=== PATIENT | female | born 1985 | race Hispanic/Latino ===

== ENCOUNTER 2018-06-26 17:34 | Emergency (ER) | payer SELFPAY ==
[2018-06-26 18:15] LABS: Absolute Monocytes 0.5 K/uL (0.1-1.3); Absolute Neutrophil 5.4 K/uL (1.8-8.0); Basophils % 0.7 % (0-1.3); Eosinophils % 2.7 % (0-4.4); Hematocrit 36.8 % (36.0-45.0); Lymphocytes % 32.7 % (15.3-44.8); MPV 8.4 fL (7.6-11.3); RBC Red Blood Cell Count 4.55 M/uL (3.86-4.86)
[2018-06-26 18:18] LABS: Protime INR 1.1
--- NOTE | 2018-06-26 18:24 | RAD REPORT ---
EXAM DESCRIPTION: Kaia Single View06/26/2018 6:15 pm CLINICAL HISTORY: Chest pain COMPARISON: none FINDINGS: The lungs appear clear of acute infiltrate. The heart is normal size IMPRESSION: No acute abnormalities displayed
[2018-06-26 18:34] LABS: ALT/SGPT 20 U/L (12-78); AST/SGOT 15 U/L (15-37); Albumin 3.6 g/dL (3.4-5.0); Alkaline Phosphatase 76 U/L (45-117); BUN Blood Urea Nitrogen 13 mg/dL (7-18); Bicarbonate 28 mmol/L (21-32); Bilirubin Direct < 0.1 mg/dL (0-0.2); Bilirubin Total 0.2 mg/dL (0.2-1.0); Glucose Level 98 mg/dL (74-106); Magnesium 2.1 mg/dL (1.8-2.4); NT PRO-BNP 71 pg/mL (<125); Potassium 3.6 mmol/L (3.5-5.1); Protein, Total 7.7 g/dL (6.4-8.2); Sodium Level 142 mmol/L (136-145); Troponin (Emerg Dept Use Only) < 0.02 ng/mL (0.0-0.045)
[2018-06-26 21:50] LABS: Urine Blood NEGATIVE (NEG); Urine Glucose NEGATIVE (NEG); Urine Protein NEGATIVE (NEG); Urine Specific Gravity 1.025 (1.005-1.030); Urine pH 5.5 (5.0-7.0)
--- NOTE | 2018-06-26 22:26 | ER ---
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 Pt reports that this pain has come and gone for a while, but has not been as severe and continuous. Pain is worse when taking deep breaths and palpation. Transition of care: patient was not received from another setting of care. Onset of symptoms was June 26, 2018. Risk Assessment: Do you want to hurt yourself or someone else? Patient reports no desire to harm self or others. Initial Sepsis Screen: Does the patient meet any 2 criteria? No. Patient's initial sepsis screen is negative. Does the patient have a suspected source of infection? No. Patient's initial sepsis screen is negative. Care prior to arrival: None. 17:57 Method Of Arrival: Ambulatory ss 17:57 Acuity: DUTCH 3 ss Historical: - Allergies: 18:00 No Known Allergies; ss - Home Meds: 18:00 None [Active]; ss - PMHx: 18:00 Anxiety; Depression; Diabetes - NIDDM; ss - Immunization history:: Adult Immunizations up to date. - Social history:: Smoking status: Patient uses tobacco products, denies chronic smoking, but will smoke occasionally. - Ebola Screening: : Patient denies exposure to infectious person Patient denies travel to an Ebola-affected area in the 21 days before illness onset. Screenin:51 Abuse screen: Denies threats or abuse. Denies injuries from another. Nutritional sv screening: No deficits noted. Tuberculosis screening: No symptoms or risk factors identified. Fall Risk None identified. Assessment: 18:00 General: Appears in no apparent distress. uncomfortable, obese, well developed, sv Behavior is cooperative, appropriate for age, anxious. Pain: Complains of pain in anterior aspect of right upper chest, anterior aspect of left upper chest and mid-sternal area Pain does not radiate. Pain currently is 10 out of 10 on a pain scale. Quality of pain is described as sharp, Pain began 2-3 days ago. Is intermittent. Neuro: Level of Consciousness is awake, alert, obeys commands, Oriented to person, place, time, situation, Moves all extremities. Full function Gait is steady. Cardiovascular: Patient's skin is warm and dry. Rhythm is sinus rhythm. Respiratory: Reports shortness of breath on exertion Airway is patent Respiratory effort is even, unlabored, Respiratory pattern is regular, symmetrical. Derm: Skin is pink, warm \T\ dry. 19:00 Reassessment: Patient appears in no apparent distress at this time. Patient and/or jb4 family updated on plan of care and expected duration. Pain level reassessed. Patient is alert, oriented x 3, equal unlabored respirations, skin warm/dry/pink. 19:55 Reassessment: Patient appears in no apparent distress at this time. Patient and/or jb4 family updated on plan of care and expected duration. Pain level reassessed. Patient is alert, oriented x 3, equal unlabored respirations, skin warm/dry/pink. 20:45 Reassessment: Patient appears in no apparent distress at this time. Patient and/or jb4 family updated on plan of care and expected duration. Pain level reassessed. Patient is alert, oriented x 3, equal unlabored respirations, skin warm/dry/pink. 21:45 Reassessment: Patient appears in no apparent distress at this time. Patient and/or jb4 family updated on plan of care and expected duration. Pain level reassessed. Patient is alert, oriented x 3, equal unlabored respirations, skin warm/dry/pink. 22:59 Reassessment: Patient appears in no apparent distress at this time. Patient and/or jb4 family updated on plan of care and expected duration. Pain level reassessed. Patient is alert, oriented x 3, equal unlabored respirations, skin warm/dry/pink. Vital Signs: 18:00 BP 126 / 74; Pulse 74; Resp 24; Temp 98.4(TE); Height 4 ft. 11 in. (149.86 cm); Pain ss 10/10; 19:30 BP 113 / 78; Pulse 72; Resp 18; Pulse Ox 98% on R/A; jb4 20:45 BP 130 / 69; Pulse 68; Resp 18; Pulse Ox 99% on R/A; jb4 21:45 BP 100 / 81; Pulse 76; Resp 16; Pulse Ox 98% on R/A; jb4 22:50 BP 128 / 80; Pulse 77; Resp 16; Pulse Ox 99% on R/A; jb4 ED Course: 17:34 Patient arrived in ED. as 17:44 Osvaldo Payne, CELSO is PHCP. pm1 17:44 Santiago Wilson MD is Attending Physician. pm1 17:45 Sonal Perez, RN is Primary Nurse. sv 17:51 Patient has correct armband on for positive identification. Placed in gown. Bed in low sv position. Call light in reach. quality assurance monitor body on. Pulse ox on. NIBP on. Door closed. Head of bed elevated. 17:52 EKG done, by budget technician. reviewed by Osvaldo Payne NP. sm3 17:59 Triage completed. ss 18:00 Arm band placed on right wrist. ss 18:00 Initial lab(s) drawn, by sc, sent to lab. Inserted saline lock: 20 gauge in right sv antecubital area, using aseptic technique. Blood collected. Flushed right antecubital with 5 ml normal saline. Patient maintains SpO2 saturation greater than 95% on room air. 18:26 Basic Metabolic Panel Sent. sv 18:26 CBC with Diff Sent. sv 18:26 LFT's Sent. sv 18:26 Magnesium Sent. sv 18:26 NT PRO-BNP Sent. sv 18:26 PT-INR Sent. sv 18:26 Troponin (emerg Dept Use Only) Sent. sv 18:26 XRAY Chest (1 view) Sent. sv 19:10 Report given to Tee BARAJAS. sv 19:11 Primary Nurse role handed off by Sonal Perez, JENN sv 19:13 Denton Barreto, RN is Primary Nurse. jb4 22:50 No provider procedures requiring assistance completed. IV discontinued, intact, jb4 bleeding controlled, No redness/swelling at site. Pressure dressing applied. Administered Medications: 22:45 Drug: TORadol 30 mg Route: IVP; Site: right antecubital; cc3 22:52 Follow up: Response: No adverse reaction cc3 22:59 Follow up: Response: No adverse reaction; Pain is decreased jb4 Outcome: 22:26 Discharge ordered by . pm1 22:50 Discharged to home ambulatory. jb4 22:50 Condition: stable 22:50 Discharge instructions given to patient, Instructed on discharge instructions, follow up and referral plans. Demonstrated understanding of instructions, follow-up care. 23:02 Patient left the ED. jb4 Signatures: Sonal Perez, RN Meenakshi Contreras Shelby, RN RN Osvaldo Woodson, OFFICE NURSE OFFICE NURSE pm1 Denton Barreto RN RN jb4 Ksenia Leal 3 Anna Christianson cc3 Corrections: (The following items were deleted from the chart) 18:28 18:00 Respiratory: Airway is patent Respiratory effort is even, unlabored, Respiratory sv pattern is regular, symmetrical, sv
--- NOTE | 2018-06-26 22:27 | EDPHYS ---
Physician Documentation [facility] Name: Lorelei Bolaños Age: 32 yrs Sex: Female : 1985 Arrival Date: 06/26/2018 Time: 17:34 Bed 17 Private MD: ED Physician Santiago Wilson HPI: 06/26 18:00 This 32 yrs old Female presents to ER via Ambulatory with complaints of Chest pm1 Tightness, Shortness Of Breath. 18:00 The patient or guardian reports chest pain that is located primarily in the mid-sternal pm1 area. The pain does not radiate. Associated signs and symptoms: Pertinent positives: shortness of breath, Pertinent negatives: abdominal pain, cough, dizziness, headache, nausea, near syncope, palpitations, vomiting. The chest pain is described as sharp. Duration: The patient or guardian reports a single episode, that is still ongoing. Modifying factors: The symptoms are alleviated by nothing. the symptoms are aggravated by deep breath, emotionally stressful situations, palpation of area. Severity of pain: in the emergency department the pain is unchanged. The patient has not experienced similar symptoms in the past. The patient has not recently seen a physician. Historical: - Allergies: 18:00 No Known Allergies; ss - Home Meds: 18:00 None [Active]; ss - PMHx: 18:00 Anxiety; Depression; Diabetes - NIDDM; ss - Immunization history:: Adult Immunizations up to date. - Social history:: Smoking status: Patient uses tobacco products, denies chronic smoking, but will smoke occasionally. - Ebola Screening: : Patient denies exposure to infectious person Patient denies travel to an Ebola-affected area in the 21 days before illness onset. ROS: 18:00 Constitutional: Negative for fever, chills, and weight loss, Eyes: Negative for injury, pm1 pain, redness, and discharge, ENT: Negative for injury, pain, and discharge, Neck: Negative for injury, pain, and swelling. 18:00 Abdomen/GI: Negative for abdominal pain, nausea, vomiting, diarrhea, and constipation. 18:00 Back: Negative for injury and pain, : Negative for injury, bleeding, discharge, and swelling, MS/Extremity: Negative for injury and deformity, Skin: Negative for injury, rash, and discoloration, Neuro: Negative for headache, weakness, numbness, tingling, and seizure. 18:00 Cardiovascular: Positive for chest pain, Negative for edema, orthopnea, palpitations. 18:00 Respiratory: Positive for shortness of breath, Negative for cough, wheezing. Exam: 18:00 Constitutional: This is a well developed, well nourished patient who is awake, alert, pm1 and in no acute distress. Head/Face: Normocephalic, atraumatic. Eyes: Pupils equal round and reactive to light, extra-ocular motions intact. Lids and lashes normal. Conjunctiva and sclera are non-icteric and not injected. Cornea within normal limits. Periorbital areas with no swelling, redness, or edema. ENT: Nares patent. No nasal discharge, no septal abnormalities noted. Tympanic membranes are normal and external auditory canals are clear. Oropharynx with no redness, swelling, or masses, exudates, or evidence of obstruction, uvula midline. Mucous membranes moist. Neck: Trachea midline, no thyromegaly or masses palpated, and no cervical lymphadenopathy. Supple, full range of motion without nuchal rigidity, or vertebral point tenderness. No Meningismus. 18:00 Cardiovascular: Regular rate and rhythm with a normal S1 and S2. No gallops, murmurs, or rubs. Normal PMI, no JVD. No pulse deficits. Respiratory: Lungs have equal breath sounds bilaterally, clear to auscultation and percussion. No rales, rhonchi or wheezes noted. No increased work of breathing, no retractions or nasal flaring. Abdomen/GI: Soft, non-tender, with normal bowel sounds. No distension or tympany. No guarding or rebound. No evidence of tenderness throughout. Back: No spinal tenderness. No costovertebral tenderness. Full range of motion. Skin: Warm, dry with normal turgor. Normal color with no rashes, no lesions, and no evidence of cellulitis. MS/ Extremity: Pulses equal, no cyanosis. Neurovascular intact. Full, normal range of motion. 18:00 Chest/axilla: Inspection: normal, Palpation: tenderness, that is moderate, of the mid-sternal area, that totally reproduces the patient's complaints, Deep breathing reproduces symptoms in mid-sternal area. 18:00 Neuro: Orientation: is normal, Motor: is normal, moves all fours. 18:00 Psych: Behavior/mood is anxious, Affect is animated, Oriented to person, place, time, Judgement / Insight is normal. Vital Signs: 18:00 BP 126 / 74; Pulse 74; Resp 24; Temp 98.4(TE); Height 4 ft. 11 in. (149.86 cm); Pain ss 10/10; 19:30 BP 113 / 78; Pulse 72; Resp 18; Pulse Ox 98% on R/A; jb4 20:45 BP 130 / 69; Pulse 68; Resp 18; Pulse Ox 99% on R/A; jb4 21:45 BP 100 / 81; Pulse 76; Resp 16; Pulse Ox 98% on R/A; jb4 22:50 BP 128 / 80; Pulse 77; Resp 16; Pulse Ox 99% on R/A; jb4 MDM: 17:49 Patient medically screened. pm1 20:32 Data reviewed: vital signs. pm1 22:25 Data interpreted: Pulse oximetry: on room air is 99 %. Interpretation: normal. pm1 Counseling: I had a detailed discussion with the patient and/or guardian regarding: the historical points, exam findings, and any diagnostic results supporting the discharge/admit diagnosis, lab results, radiology results, the need for outpatient follow up, to return to the emergency department if symptoms worsen or persist or if there are any questions or concerns that arise at home. 06/26 17:49 Order name: Basic Metabolic Panel pm1 06/26 17:49 Order name: CBC with Diff pm1 06/26 17:49 Order name: LFT's pm1 06/26 17:49 Order name: Magnesium pm1 06/26 17:49 Order name: NT PRO-BNP pm1 06/26 17:49 Order name: PT-INR pm1 06/26 17:49 Order name: Troponin (emerg Dept Use Only) pm1 06/26 18:28 Order name: Protime (+INR); Complete Time: 18:59 EDMS 06/26 18:33 Order name: CBC with Automated Diff; Complete Time: 18:59 EDMS 06/26 18:35 Order name: Basic Metabolic Panel; Complete Time: 18:59 EDMS 06/26 18:35 Order name: Liver (Hepatic) Function; Complete Time: 18:59 EDMS 06/26 18:35 Order name: Troponin (Emerg Dept Use Only); Complete Time: 18:59 EDMS 06/26 18:35 Order name: NT PRO-BNP; Complete Time: 18:59 EDMS 06/26 18:35 Order name: Magnesium; Complete Time: 18:59 EDMS 06/26 17:49 Order name: XRAY Chest (1 view) pm1 06/26 17:49 Order name: EKG; Complete Time: 17:50 pm1 06/26 17:49 Order name: Cardiac monitoring; Complete Time: 18:02 pm1 06/26 17:49 Order name: EKG - Nurse/Tech; Complete Time: 17:50 pm1 06/26 17:49 Order name: IV Saline Lock; Complete Time: 18:02 pm1 06/26 17:49 Order name: Labs collected and sent; Complete Time: 18:02 pm1 06/26 17:49 Order name: O2 Per Protocol; Complete Time: 18:02 pm1 06/26 17:49 Order name: O2 Sat Monitoring; Complete Time: 18:02 pm1 06/26 18:25 Order name: RAD; Complete Time: 18:59 EDMS 06/26 20:21 Order name: Urine Dipstick--Ancillary (enter results) 06/26 20:21 Order name: Urine --Ancillary (enter results) 06/26 21:38 Order name: Troponin (emerg Dept Use Only) 06/26 21:51 Order name: Urine --Ancillary; Complete Time: 21:52 EDMS 06/26 21:51 Order name: Urine Dipstick-Ancillary; Complete Time: 21:52 EDMS 06/26 22:13 Order name: Troponin (Emerg Dept Use Only); Complete Time: 22:25 EDMS 06/26 17:49 Order name: Urine Dipstick-Ancillary (obtain specimen); Complete Time: 20:17 pm1 06/26 17:49 Order name: Urine Test (obtain specimen); Complete Time: 20:17 pm1 Administered Medications: 22:45 Drug: TORadol 30 mg Route: IVP; Site: right antecubital; cc3 22:52 Follow up: Response: No adverse reaction cc3 22:59 Follow up: Response: No adverse reaction; Pain is decreased jb4 Disposition: 06/26/18 22:26 Discharged to Home. Impression: Chest pain, unspecified. - Condition is Stable. - Discharge Instructions: Nonspecific Chest Pain. - Work release form, Medication Reconciliation Form, Thank You Letter form. - Follow up: Emergency Department; When: As needed; Reason: Worsening of condition. Follow up: Private Physician; When: 2 - 3 days; Reason: Recheck today's complaints, Continuance of care, Re-evaluation by your physician. - Problem is new. - Symptoms have improved. Addendum: 06/29/2018 06:44 Co-signature as Attending Physician, Santiago Wilson MD I agree with the assessment and k dr plan of care. Signatures: Dispatcher [employer] EDMS Santiago Wilson MD MD [facility] Consuelo Garcia RN RN ss Osvaldo Payne NP [employer] pm1 Denton Barreto RN RN jb4 Anna Christianson cc3 Corrections: (The following items were deleted from the chart) 06/26 23:02 22:26 06/26/2018 22:26 Discharged to Home. Impression: Chest pain, unspecified. jb4 Condition is Stable. Forms are Medication Reconciliation Form, Thank You Letter, Antibiotic Education, Prescription Opioid Use. Follow up: Emergency Department; When: As needed; Reason: Worsening of condition. Follow up: Private Physician; When: 2 - 3 days; Reason: Recheck today's complaints, Continuance of care, Re-evaluation by your physician. Problem is new. Symptoms have improved. pm1
[2018-06-26] MEDS ORDERED: KETOROLAC 30 MG/ML INJ ONE (22:59)
--- NOTE | 2018-06-27 08:55 | EKG ---
Test Date: 2018-06-26 Test Time: 17:49:24 Dispute Resolution Specialist: QUETA MEASUREMENT RESULTS: Intervals: Rate: 75 UT: 176 QRSD: 96 QT: 370 QTc: 413 [place]: P: 71 UT: 176 QRS: 59 T: 58 INTERPRETIVE STATEMENTS: Normal sinus rhythm with sinus arrhythmia Normal ECG No previous ECG available for comparison Electronically Signed On 06-27-18 08:55:07 [employer] TUR[employer] by Kyree Mason
== END 2018-06-26 23:02 | disposition home or self-care (01) ==
LOC: ER 17:34
DX: R07.9 Chest pain, unspecified (principal)
CPT/HCPCS: 36415; 71045; 80048; 80076; 81003; 81025; 83735; 83880; 84484; 85025; 85610; 93005; 96374; 99285

== ENCOUNTER 2021-07-17 12:05 | Emergency (ER) | payer SELFPAY ==
--- OUTSIDE RECORDS SUMMARY | 2021-07-17 12:10 | XMS REPORT | Continuity of Care Document ---
:1985 Author Organization [facility] t Address [address] [place] [address] Care Team Providers Name Role Phone Pcp, Does Not Have A Primary Care Physician MARINO Attending Clinician Unavailable Marino FOUNTAIN Attending Clinician Monster COLEMAN Attending Clinician Unavailable Monster Pang Attending Clinician SAM S Attending Clinician Unavailable Sam PAC, S Attending Clinician VICKY Attending Clinician Unavailable Vicky GARCIA Attending Clinician Doctor Unassigned, Name Attending Clinician Unavailable JARED R Admitting Clinician Unavailable VICKY Admitting Clinician Unavailable MARINO Admitting Clinician Unavailable Payers Payer Name Policy Type Policy Number Effective Date Expiration Date S charles MEDICAID PENDING PENDING 2021 00:00:00 [facility] [place] [id number] 2021 WOMEN 00:00:00 Problems Condition Condition Condition Status Onset Resolution Last Treating Co mments Source Name Details Category Date Date Treatment Clinician Date 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 [facility] diabetes diabetes 0-17 ity of mellitus mellitus 00:00: [place] with skin with skin 00 [facility] norberto complicati complicati Br anch on on Morbid Morbid Disease Active 2015-05 Univers obesity obesity 0-17 ity of due to due to 00:00: [place] excess excess 00 Medical calories calories Branch Abscess Abscess Disease Active 2015-05 Univers 0-16 ity of 00:00: [place] 00 Medical Branch Allergies, Adverse Reactions, Alerts Allergy Allergy Status Severity Reaction(s) Onset Inactive Treating Comm ents Source Name Type Date Date Clinician NO KNOWN Drug Active Univers ALLERGIE Class ity of S [facility] Social History Social Habit Start Date Stop Date Quantity Comments Source History of Cigarette Smoker Universi ty of tobacco use [facility] Exposure to Not sure [facility] SARS-CoV-2 [facility] (event) [place] Alcohol intake 2021-05-09 2021-05-09 0 /d University of 00:00:00 00:00:00 [facility] Tobacco use and 2016-02-18 2016-02-18 Never used Universit y of exposure 00:00:00 00:00:00 [facility] Sex [birth year] Universit y of 00:00:00 00:00:00 [facility] Smoking Status Start Date Stop Date Source Light tobacco smoker 2016-02-18 00:00:00 [facility] ity of [facility] Medications Ordered Filled Start Stop Current Ordering Indication Dosage Frequency Signature Comments Components Source Medication Medication Date Date Medication? Clinician (SIG) Name Name benzonatate Yes [id number] 100mg Take 1 Univers 100 mg 3-09 capsule by ity of capsule 00:00: mouth 3 [place] 00 (three) Medical times Branch daily as needed for Cough. azithromyci Yes [id number] 250mg Take 1 Univers n 3-09 tablet by ity of (ZITHROMAX 00:00: mouth [place] Z-SUSAN) 250 00 daily. Medical mg tablet Take 500 Branch mg day 1, then 250 mg days 2 to 5. montelukast Yes [id number] 10mg Take 1 Univers 10 mg 3-09 tablet by ity of tablet 00:00: mouth [place] 00 every 24 Medical (twenty-fo Branch ur) hours as needed (symptoms) . loratadine- Yes [id number] 1{tbl} Take 1 Univers pseudoephed 3-09 tablet by ity of rine 00:00: mouth [place] (CLARITIN-D 00 daily. Medica l 24 HOUR) Branch 10-240 mg per 24 hr tablet albuterol 0 Yes [id number] 2{puff} Inhale 2 Univers 90 1-05 Puffs ity of mcg/actuati 00:00: every 4 [place] as on inhaler 00 (four) Medical hours as Branch needed for Wheezing or Shortness of Breath. benzonatate 0 Yes [id number] 100mg Take 1 Univers 100 mg 1-05 capsule by ity of capsule 00:00: mouth 3 [place] (three) Medical times Branch daily as needed for Cough. bromphenira 0 Yes [id number] 5mL Take 5 mL Univers mine-pseudo 1-05 by mouth 4 it y of ephedrine-D 00:00: (four[place] (BROMFED 00 times Medical DM) 2-30-10 daily as Bran ch mg/5 mL needed for syrup Cough. albuterol 0 Yes [id number] 2{puff} Inhale 2 Univers 90 1-05 Puffs ity of mcg/actuati 00:00: every 4 [place] as on inhaler 00 (four) Medical hours as Branch needed for Wheezing or Shortness of Breath. benzonatate 0 Yes [id number] 100mg Take 1 Univers 100 mg 1-05 capsule by ity of capsule 00:00: mouth 3 [place] (three) Medical times Branch daily as needed for Cough. bromphenira 0 Yes [id number] 5mL Take 5 mL Univers mine-pseudo 1-05 by mouth 4 it y of ephedrine-D 00:00: (four[place] (BROMFED 00 times Medical DM) 2-30-10 daily as Bran ch mg/5 mL needed for syrup Cough. dexamethaso 2020-05- No 10mg 10 mg, Uni vers ne 05-08 Intramuscu ity of (DECADRON 06:30: 05:52 lar, ONCE, [place] PHOSPHATE) 00 :00 1 dose, On Med ical injection Lety Branch 10 mg 03/08/21 at 0130, STAT ketorolac 2020-05- No 60mg 60 mg, Unive rs (TORADOL) 05-08 Intramuscu ity of injection 06:30: 05:52 lar, ONCE, [place] 60 mg 00 :00 1 dose, On Medical [place] Branch 03/08/21 at 0130, [facility] EMERGENCY ROOM, ibuprofen 2020-05 Yes 800mg Take 1 Un jo 800 mg 1-04 tablet by ity of tablet 00:00: mouth [place] 00 every 8 Medical (eight) Branch hours as needed for Pain (scale 4-6). methocarbam 2020-05 Yes 750mg Take 1 Univers oL 750 mg 1-04 tablet by ity o f tablet 00:00: mouth 4 [place] 00 (four) Medical times Branch daily as needed for Other (muscle spasm). ibuprofen 2020-05 Yes 800mg Take 1 Un jo 800 mg 1-04 tablet by ity of tablet 00:00: mouth [place] 00 every 8 Medical (eight) Branch hours as needed for Pain (scale 4-6). methocarbam 2020-05 Yes 750mg Take 1 Univers oL 750 mg 1-04 tablet by ity o f tablet 00:00: mouth 4 [place] 00 (four) Medical times Branch daily as needed for Other (muscle spasm). ibuprofen 2020-05 Yes 800mg Take 1 Un jo 800 mg 1-04 tablet by ity of tablet 00:00: mouth [place] 00 every 8 Medical (eight) Branch hours as needed for Pain (scale 4-6). methocarbam 2020-05 Yes 750mg Take 1 Univers oL 750 mg 1-04 tablet by ity o f tablet 00:00: mouth 4 [place] 00 (four) Medical times Branch daily as needed for Other (muscle spasm). ibuprofen 2020-05 Yes 800mg Take 1 Un jo 800 mg 1-04 tablet by ity of tablet 00:00: mouth [place] 00 every 8 Medical (eight) Branch hours as needed for Pain (scale 4-6). methocarbam 2020-05 Yes 750mg Take 1 Univers oL 750 mg 1-04 tablet by ity o f tablet 00:00: mouth 4 [place] 00 (four) Medical times Branch daily as needed for Other (muscle spasm). predniSONE 2020-05 No [id number] 40mg Take 2 U nivers 20 mg 1-04 11-08 tablets by ity of tablet 00:00: 05:59 mouth [place] 00 :00 daily for Medical 3 days. Branch iohexol 2020- No 120mL 120 mL, Unive rs (OMNIPAQUE 05-17 Intravenou it y of 350 22:15: 21:55 s, ONCE, 1 [place] BULK-150 00 :00 dose, Wed Medica l mL) 05/17/20 at Branch injection 1615, 120 mL Routine ondansetron 2020- No 4mg 4 mg, Slow Univers (ZOFRAN 05-17 IV Push, ity of (PF)) 21:00: 22:31 ONCE, 1 [place] injection 4 00 :00 dose, Wed Med ical mg 05/17/20 at Branch 1500, CARLINE FENTanyl PF 2020- No 50ug 50 mcg, Un jo (SUBLIMAZE 05-17 Slow IV ity o f (PF)) 21:00: 22:32 Push, [place] injection 00 :00 ONCE, 1 Medical 50 mcg dose, Wed Branch 05/17/20 at 1500, Routine ibuprofen Yes [id number] 600mg Take 1 Univers 600 mg 1-13 100 tablet by ity of tablet 00:00: mouth [place] 00 every 6 Medical (six) Branch hours as needed for Pain (scale 4-6). ibuprofen 2020-0 Yes [id number] 600mg Take 1 Univers 600 mg 1-13 100 tablet by ity of tablet 00:00: mouth [place] 00 every 6 Medical (six) Branch hours as needed for Pain (scale 4-6). ibuprofen 2020-0 Yes [id number] 600mg Take 1 Univers 600 mg 1-13 100 tablet by ity of tablet 00:00: mouth [place] 00 every 6 Medical (six) Branch hours as needed for Pain (scale 4-6). ibuprofen 2020-0 Yes [id number] 600mg Take 1 Univers 600 mg 1-13 100 tablet by ity of tablet 00:00: mouth [place] 00 every 6 Medical (six) Branch hours as needed for Pain (scale 4-6). ibuprofen 2020-0 Yes [id number] 600mg Take 1 Univers 600 mg 1-13 100 tablet by ity of tablet 00:00: mouth [place] 00 every 6 Medical (six) Branch hours as needed for Pain (scale 4-6). penicillin 2019-05 No 500mg 500 mg, Un jo v potassium 06-25 Oral, ity of (PEN-VEE K) 06:15: 05:17 ONCE, 1 [place] tablet 500 00 :00 dose, Mon Medi norberto mg 04/24/20 Branch at 0015, CARLINE
Re ason for Anti-Infec tive: Documented Infection< br>Documen naif Infection Site: HEENT
D uration of Therapy: 7 days ketorolac 2019-05- No 60mg 60 mg, Unive rs (TORADOL) 06-25 Intramuscu ity of injection 06:15: 05:17 lar, ONCE, [place] 60 mg 00 :00 1 dose, Medical Mon Branch 04/24/20 at 0015, CARLINE
Fa culty member approving Restricted medication : EMERGENCY ROOM, HYDROcodone 2019-05- No 1{tbl} 1 tablet, Univers -acetaminop 06-25 Oral, ity of hen (NORCO 06:15: 05:17 ONCE, 1 [place] as 5) 5-325 mg 00 :00 dose, Mon Med ical tablet 1 04/24/20 Branch tablet at 0015, CARLINE penicillin 2019-05- No [id number] 500mg Take 1 Univers v potassium 06-24 tablet by it y of 500 mg 00:00: 05:59 mouth 4 [place] tablet 00 :00 (four) Medical times Branch daily for 7 days. acetaminoph 2019-05- No [id number] 1{tbl} Take 1 U nivers en-codeine 06-24 tablet by ity of 300-30 mg 00:00: 05:59 mouth [place] tablet 00 :00 every 6 Medical (six) Branch hours as needed for Pain (scale 7-10) for up to 7 days. Indication s: acute pain NaCl 0.9% 2019- No 500mL at 999 Univ ers (NS) bolus 01-02 08-31 mL/hr, 500 it y of infusion 20:30: 20:53 mL, IV [place] 500 mL 00 :00 Infusion, Medical ONCE, 1 Branch dose, 01/03/20 at 1530, STAT ketorolac 2019- No 30mg 30 mg, Unive rs (TORADOL) 01-02 Slow IV ity of injection 20:30: 19:50 Push, [place] 30 mg 00 :00 ONCE, 1 Medical dose, Mon Branch 01/03/20 at 1530, CARLINE
[facility] approving Restricted medication : ALMITA VARGAS albuterol 2020- No 2{puff} 2 Puff, U nivers (VENTOLIN) 10-13 Inhalation it y of inhaler 2 18:15: 17:31 , ONCE, 1 [place] Puff 00 :00 dose, Lety Medical 10/14/19 at Branch 1315, CARLINE
Is this order for a patient with suspected or confirmed COVID-19 infection? No
Does this order have Pulmonary/ Critical Care approval? No iohexol 2019- No 120mL 120 mL, Unive rs (OMNIPAQUE 24 05-28 Intravenou it y of 350 00:45: 00:45 s, ONCE, 1 [place] BULK-150 00 :00 dose, Lety Medica l mL) 05/27/19 at Branch injection 1845, 120 mL Routine acetaminoph 2015-05 Yes 1{tbl} Take 1 Un jo en-codeine 0-17 tablet by ity of (TYLENOL-CO 00:00: mouth [place] DEINE #3) 00 every 4 Medical 300-30 mg (four) Branch tablet hours as needed for Pain unrelieved by non-narcot ic analgesics . sulfamethox 2015-05 Yes 1{tbl} Take 1 Un jo azole-trime 0-17 tablet by ity of thoprim 00:00: mouth 2 [place] (BACTRIM 00 (two) Medical SS) 400-80 times Branch mg per daily. tablet acetaminoph 2015-05 Yes 1{tbl} Take 1 Un jo en-codeine 0-17 tablet by ity of (TYLENOL-CO 00:00: mouth [place] DEINE #3) 00 every 4 Medical 300-30 mg (four) Branch tablet hours as needed for Pain unrelieved by non-narcot ic analgesics . sulfamethox 2015-05 Yes 1{tbl} Take 1 Un jo azole-trime 0-17 tablet by ity of thoprim 00:00: mouth 2 [place] (BACTRIM 00 (two) Medical SS) 400-80 times Branch mg per daily. tablet acetaminoph 2015-05 Yes 1{tbl} Take 1 Un jo en-codeine 0-17 tablet by ity of (TYLENOL-CO 00:00: mouth [place] DEINE #3) 00 every 4 Medical 300-30 mg (four) Branch tablet hours as needed for Pain unrelieved by non-narcot ic analgesics . sulfamethox 2015-05 Yes 1{tbl} Take 1 Un jo azole-trime 0-17 tablet by ity of thoprim 00:00: mouth 2 [place] (BACTRIM 00 (two) Medical SS) 400-80 times Branch mg per daily. tablet sulfamethox 2015-05 2020- No 1{tbl} Take 1 U nivers azole-trime 0-17 08-31 tablet by it y of thoprim 00:00: 00:00 mouth 2 [place] (BACTRIM 00 :00 (two) Medical SS) 400-80 times Branch mg per daily. tablet acetaminoph 2015-05 2020- No 1{tbl} Take 1 U nivers en-codeine 0-17 08-31 tablet by ity of (TYLENOL-CO 00:00: 00:00 [place] DEINE #3) 00 :00 every 4 Medical 300-30 mg (four) Branch tablet hours as needed for Pain unrelieved by non-narcot ic analgesics . Immunizations Ordered Filled Immunization Date Status Comments [facility] e Immunization Name Name Influenza Virus 2016-02-19 Completed Universit y of Vaccine [facility] IM 3+ 00:00:00 [facility] Influenza Virus 2016-02-19 Completed Universit y of Vaccine [facility] IM 3+ 00:00:00 [facility] Influenza Virus 2016-02-19 Completed Universit y of Vaccine Quad IM 3+ 00:00:00 [facility] Influenza Virus 2016-02-19 Completed Universit y of Vaccine Quad IM 3+ 00:00:00 [facility] Influenza Virus 2016-02-19 Completed Universit y of Vaccine Quad IM 3+ 00:00:00 [facility] Influenza Virus 2016-02-19 Completed Universit y of Vaccine Quad IM 3+ 00:00:00 [facility] Influenza Virus 2016-02-19 Completed Universit y of Vaccine Quad IM 3+ 00:00:00 [facility] Branch Influenza Virus 2016-02-19 Completed Universit y of Vaccine Quad IM 3+ 00:00:00 [facility] Influenza Virus 2016-02-19 Completed Universit y of Vaccine Quad IM 3+ 00:00:00 [facility] Branch Influenza Virus 2016-02-19 Completed Universit y of Vaccine Quad IM 3+ 00:00:00 [facility] Vital Signs Vital Name Observation Time Observation Value Comments Source Systolic blood 2021-07-12 01:00:00 139 mm[Hg] Univer sity of pressure [facility] Diastolic blood 2021-07-12 01:00:00 83 mm[Hg] Unive rsity of [facility] Heart rate 2021-07-12 01:00:00 85 /min Universi ty [facility] [place] [facility] Body temperature 2021-07-12 01:00:00 36.94 Rohini [facility] 2021-07-12 01:00:00 18 /min [facility] Body height 2021-07-12 01:00:00 149.9 cm Universi ty [facility] [place] [facility] Body weight 2021-07-12 01:00:00 129.729 kg Universi ty [facility] [place] [facility] BMI 2021-07-12 01:00:00 57.76 kg/m2 [facility] Oxygen saturation in 2021-07-12 01:00:00 99 /min University of Arterial blood by [facility] [place] [facility] Pulse oximetry Branch Systolic blood 2021-05-10 03:19:00 149 mm[Hg] Univer sity of pressure [facility] Diastolic blood 2021-05-10 03:19:00 86 mm[Hg] Unive rsity of pressure [facility] Heart rate 2021-05-10 03:19:00 98 /min Universi ty [facility] [place] [facility] Body temperature 2021-05-10 03:19:00 37.22 Rohini Univ ersity of [facility] Respiratory rate 2021-05-10 03:19:00 18 /min Univ ersity of [facility] Oxygen saturation in 2021-05-10 03:19:00 97 /min University of Arterial blood by [facility] [place] [facility] Pulse oximetry Branch Systolic blood 2021-04-04 03:16:24 116 mm[Hg] Univer sity of pressure [place] [facility] Diastolic blood 2021-04-04 03:16:24 64 mm[Hg] Unive rsity of pressure [place] [facility] Heart rate 2021-04-04 03:16:24 77 /min Universi ty of [place] [facility] Respiratory rate 2021-04-04 03:16:24 18 /min Univ ersity of [place] [facility] Oxygen saturation in 2021-04-04 03:16:24 96 /min University of Arterial blood by [facility] norberto Pulse oximetry Branch Body temperature 2021-04-04 01:33:00 36.83 Rohini Univ ersity of [place] [facility] Body height 2021-04-04 01:33:00 149.9 cm Universi ty of [place] [facility] Body weight 2021-04-04 01:33:00 145.151 kg Universi ty of [place] [facility] BMI 2021-04-04 01:33:00 64.63 kg/m2 Universi ty of [place] [facility] Systolic blood 2021-03-08 06:03:00 142 mm[Hg] Univer sity of pressure [place] [facility] Diastolic blood 2021-03-08 06:03:00 80 mm[Hg] Unive rsity of pressure [place] [facility] Heart rate 2021-03-08 06:03:00 66 /min Universi ty of [place] [facility] Respiratory rate 2021-03-08 06:03:00 21 /min Univ ersity of [place] [facility] Oxygen saturation in 2021-03-08 06:03:00 100 /min University of Arterial blood by [facility] norberto Pulse oximetry Branch Body temperature 2021-03-08 04:39:00 37.17 Rohini Univ ersity of [place] [facility] Body height 2021-03-08 04:39:00 149.9 cm Universi ty of [place] [facility] Body weight 2021-03-08 04:39:00 127.007 kg Universi ty of [place] [facility] BMI 2021-03-08 04:39:00 56.55 kg/m2 Universi ty of [place] [facility] Systolic blood 2020-05-17 22:30:00 99 mm[Hg] Univer sity of pressure [place] [facility] Diastolic blood 2020-05-17 22:30:00 54 mm[Hg] Unive rsity of pressure [place] [facility] Heart rate 2020-05-17 22:30:00 76 /min Universi ty of [place] [facility] Respiratory rate 2020-05-17 22:30:00 18 /min Univ ersity of [place] [facility] Oxygen saturation in 2020-05-17 22:30:00 100 /min University of Arterial blood by [facility] norberto Pulse oximetry Branch Body temperature 2020-05-17 19:53:00 36.5 Rohini Univ ersity of [place] [facility] Body weight 2020-05-17 19:53:00 127.007 kg Universi ty of [place] [facility] BMI 2020-05-17 19:53:00 56.55 kg/m2 Universi ty of [place] [facility] Systolic blood 2020-05-17 22:30:00 99 mm[Hg] Univer sity of pressure [place] [facility] Diastolic blood 2020-05-17 22:30:00 54 mm[Hg] Unive rsity of pressure [place] [facility] Heart rate 2020-05-17 22:30:00 76 /min Universi ty of [place] [facility] Respiratory rate 2020-05-17 22:30:00 18 /min Univ ersity of [place] [facility] Oxygen saturation in 2020-05-17 22:30:00 100 /min University of Arterial blood by [facility] norberto Pulse oximetry Branch Body temperature 2020-05-17 19:53:00 36.5 Rohini Univ ersity of [place] [facility] Body weight 2020-05-17 19:53:00 127.007 kg Universi ty of [place] [facility] BMI 2020-05-17 19:53:00 56.55 kg/m2 Universi ty of [place] [facility] Systolic blood 2020-04-24 04:53:00 158 mm[Hg] Univer sity of pressure [place] [facility] Diastolic blood 2020-04-24 04:53:00 69 mm[Hg] Unive rsity of pressure [place] [facility] Heart rate 2020-04-24 04:53:00 61 /min Universi ty of [place] [facility] Body temperature 2020-04-24 04:53:00 37.5 Rohini Univ ersity of [place] [facility] Respiratory rate 2020-04-24 04:53:00 20 /min Univ ersity of [place] [facility] Body weight 2020-04-24 04:53:00 127.007 kg Universi ty of [place] [facility] BMI 2020-04-24 04:53:00 56.55 kg/m2 Universi ty of [place] [facility] Oxygen saturation in 2020-04-24 04:53:00 100 /min University of Arterial blood by [place] [facility]i norberto Pulse oximetry Branch Systolic blood 2020-04-24 04:53:00 158 mm[Hg] Univer sity of pressure [place] [facility] Diastolic blood 2020-04-24 04:53:00 69 mm[Hg] Unive rsity of pressure [place] [facility] Heart rate 2020-04-24 04:53:00 61 /min Universi ty of [place] [facility] Body temperature 2020-04-24 04:53:00 37.5 Rohini Univ ersity of [place] [facility] Respiratory rate 2020-04-24 04:53:00 20 /min Univ ersity of [place] [facility] Body weight 2020-04-24 04:53:00 127.007 kg Universi ty of [place] [facility] BMI 2020-04-24 04:53:00 56.55 kg/m2 Universi ty of [place] [facility] Oxygen saturation in 2020-04-24 04:53:00 100 /min University of Arterial blood by [facility] [place] [facility] Pulse oximetry Branch Body temperature 2020-01-03 21:00:05 36.44 Rohini Univ ersity of [place] [facility] Systolic blood 2020-01-03 20:20:00 127 mm[Hg] Univer sity of pressure [place] [facility] Diastolic blood 2020-01-03 20:20:00 68 mm[Hg] Unive rsity of pressure [place] [facility] Heart rate 2020-01-03 20:20:00 68 /min Universi ty of [place] [facility] Respiratory rate 2020-01-03 20:20:00 12 /min Univ ersity of [place] [facility] Oxygen saturation in 2020-01-03 20:20:00 99 /min University of Arterial blood by [facility] [place] [facility] Pulse oximetry Branch Body height 2020-01-03 17:01:00 149.9 cm Universi ty of [place] [facility] Body weight 2020-01-03 17:01:00 127.007 kg Universi ty of [place] [facility] BMI 2020-01-03 17:01:00 56.55 kg/m2 Universi ty of [place] [facility] Body temperature 2020-01-03 21:00:05 36.44 Rohini Univ ersity of [place] [facility] Systolic blood 2020-01-03 20:20:00 127 mm[Hg] Univer sity of pressure [place] [facility] Diastolic blood 2020-01-03 20:20:00 68 mm[Hg] Unive rsity of pressure [place] [facility] Heart rate 2020-01-03 20:20:00 68 /min Universi ty of [place] [facility] Respiratory rate 2020-01-03 20:20:00 12 /min Univ ersity of [place] [facility] Oxygen saturation in 2020-01-03 20:20:00 99 /min University of Arterial blood by [place] [employer] norberto Pulse oximetry Branch Body height 2020-01-03 17:01:00 149.9 cm Universi ty of [place] [facility] Body weight 2020-01-03 17:01:00 127.007 kg Universi ty of [place] [facility] BMI 2020-01-03 17:01:00 56.55 kg/m2 Universi ty of [place] [facility] Systolic blood 2019-10-14 18:30:00 134 mm[Hg] Univer sity of pressure [place] [facility] Diastolic blood 2019-10-14 18:30:00 72 mm[Hg] Unive rsity of pressure [place] [facility] Heart rate 2019-10-14 18:30:00 73 /min Universi ty of [place] [facility] Respiratory rate 2019-10-14 18:30:00 17 /min Univ ersity of [place] [facility] Oxygen saturation in 2019-10-14 18:30:00 97 /min University of Arterial blood by [place] [employer] norberto Pulse oximetry Branch Body temperature 2019-10-14 15:46:00 36.67 Rohini Univ ersity of [place] [facility] Body height 2019-10-14 15:46:00 152.4 cm Universi ty of [place] [facility] Body weight 2019-10-14 15:46:00 127.007 kg Universi ty of [place] [facility] BMI 2019-10-14 15:46:00 54.68 kg/m2 Universi ty of [place] [facility] Systolic blood 2019-10-14 18:30:00 134 mm[Hg] Univer sity of pressure [place] [facility] Diastolic blood 2019-10-14 18:30:00 72 mm[Hg] Unive rsity of pressure [place] [facility] Heart rate 2019-10-14 18:30:00 73 /min Universi ty of [place] [facility] Respiratory rate 2019-10-14 18:30:00 17 /min Univ ersity of [place] [facility] Oxygen saturation in 2019-10-14 18:30:00 97 /min University of Arterial blood by [place] Medi norberto Pulse oximetry Branch Body temperature 2019-10-14 15:46:00 36.67 Rohini Univ ersity of [place] [facility] Body height 2019-10-14 15:46:00 152.4 cm Universi ty of [place] [facility] Body weight 2019-10-14 15:46:00 127.007 kg Universi ty of [place] [facility] BMI 2019-10-14 15:46:00 54.68 kg/m2 Universi ty of [place] [facility] Systolic blood 2019-05-28 00:40:30 132 mm[Hg] Univer sity of pressure [place] [facility] Diastolic blood 2019-05-28 00:40:30 80 mm[Hg] Unive rsity of pressure [place] [facility] Heart rate 2019-05-28 00:40:30 83 /min Universi ty of [place] [facility] Respiratory rate 2019-05-28 00:40:30 18 /min Univ ersity of [place] [facility] Oxygen saturation in 2019-05-28 00:40:30 99 /min University of Arterial blood by [facility] [place] [facility] Pulse oximetry Branch Body temperature 2019-05-27 22:45:22 36.72 Rohini Univ ersity of [place] [facility] Body weight 2019-05-27 21:48:00 127.007 kg Universi ty of [place] [facility] BMI 2019-05-27 21:48:00 54.68 kg/m2 Universi ty of [place] [facility] Systolic blood 2019-05-28 00:40:30 132 mm[Hg] Univer sity of pressure [place] [facility] Diastolic blood 2019-05-28 00:40:30 80 mm[Hg] Unive rsity of pressure [place] [facility] Heart rate 2019-05-28 00:40:30 83 /min Universi ty of [place] [facility] Respiratory rate 2019-05-28 00:40:30 18 /min Univ ersity of [place] [facility] Oxygen saturation in 2019-05-28 00:40:30 99 /min University of Arterial blood by [facility] [place] [facility] Pulse oximetry Branch Body temperature 2019-05-27 22:45:22 36.72 Rohini Univ ersity of [place] [facility] Body weight 2019-05-27 21:48:00 127.007 kg Universi ty of [place] [facility] BMI 2019-05-27 21:48:00 54.68 kg/m2 Universi ty of [place] [facility] Procedures Procedure Date / Time Performing Clinician Source Performed RAPID STREP SCREEN FOR 2021-07-12 01:08:00 Bhavin Pichardo [facility] GROUP A Medical Branch RAPID INFLUENZA A/B 2021-07-12 01:08:00 Bhavin Pichardo [facility] COVID-19 (ID NOW RAPID 2021-07-12 01:08:00 Bhavin Pichardo [facility] TESTING) Medical Branch CONSENT/REFUSAL FOR 2021-07-12 00:40:57 Doctor Unassigned, No [facility] [place] [facility] Name Medical Branch XR CHEST 2 VW 2021-05-10 04:05:14 Julio César Coleman [place] [facility] NOTICE OF PRIVACY 2021-05-10 03:11:40 Doctor Unassigned, No [facility] [place] PRACTICES Name Medical Branch CONSENT/REFUSAL FOR 2021-05-10 03:08:35 Doctor Unassigned, No [facility] [place] [facility] Name Medical Branch URINALYSIS 2021-04-04 02:04:00 Almita Vargas [facility] RAPID STREP SCREEN FOR 2021-04-04 02:04:00 Almita Vargas [facility] GROUP A Medical Branch CONSENT/REFUSAL FOR 2021-04-04 01:28:15 Doctor Unassigned, No [facility] [place] [facility] Name Medical Branch XR KNEE 3 VW RIGHT 2021-03-08 05:41:41 Ruby Perry [facility] XR RIBS 3 VW RIGHT 2021-03-08 05:41:41 Ruby Perry [facility] URINALYSIS 2021-03-08 04:56:00 Ruby Perry [facility] POCT TEST 2021-03-08 04:55:00 Ruby Perry [facility] CONSENT/REFUSAL FOR 2021-03-08 04:26:49 Doctor Unassigned, No [facility] [place] [facility] Name Medical Branch CT ABDOMEN PELVIS W 2020-05-17 22:00:14 Julio César Coleman [facility] CONTRAST [facility] Branch URINALYSIS 2020-05-17 20:58:00 Julio César Coleman [place] [facility] POCT TEST 2020-05-17 20:57:00 Julio César Coleman [facility] LIPASE 2020-05-17 20:11:00 Julio César Coleman [facility] TEST, SERUM 2020-05-17 20:11:00 Julio César Coleman [facility] COMP. METABOLIC PANEL 2020-05-17 20:11:00 Julio César Coleman [facility] ([id number]) [facility] CBC WITH DIFF 2020-05-17 20:11:00 Julio César Coleman [facility] NOTICE OF PRIVACY 2020-05-17 19:45:39 Doctor Unassigned, No [facility] CONSENT/REFUSAL FOR 2020-05-17 19:45:23 Doctor Unassigned, No [facility] [place] [facility] Name [facility] POCT TEST 2020-04-24 05:17:00 Ruby Perry [facility] NOTICE OF PRIVACY 2020-04-24 04:47:03 Doctor Unassigned, No [facility] CONSENT/REFUSAL FOR 2020-04-24 04:46:22 Doctor Unassigned, No [facility] [place] [facility] Name [facility] XR CHEST 1 VW 2020-01-03 18:47:04 Almita Vargas [facility] CT HEAD WO CONTRAST 2020-01-03 18:19:31 Almita Vargas [facility] BASIC METABOLIC PANEL 2020-01-03 18:05:00 Almita Vargas [facility] (NA, K, CL, CO2, Medical Branch GLUCOSE, BUN, CREATININE, CA) CBC WITH DIFF 2020-01-03 18:05:00 Almita Vargas [facility] URINALYSIS 2020-01-03 18:05:00 Almita Vargas [facility] POCT TEST 2020-01-03 17:59:00 Almita Vargas [facility] EKG-12 LEAD 2020-01-03 17:31:39 Almita Vargas [facility] NOTICE OF PRIVACY 2020-01-03 16:54:57 Doctor Unassigned, No [facility] [place] PRACTICES Name Medical Branch CONSENT/REFUSAL FOR 2020-01-03 16:54:25 Doctor Unassigned, No [facility] DIAGNOSIS AND TREATMENT Name Medical Branch URINALYSIS 2019-10-14 17:14:00 Almita Vargas [facility] XR CHEST 1 VW COVID 2019-10-14 16:52:08 Bhavin Pichardo [facility] LIPASE 2019-10-14 16:17:00 Bhavin Pichardo [facility] TROPONIN I 2019-10-14 16:17:00 Marino Bhavin [facility] COMP. METABOLIC PANEL 2019-10-14 16:17:00 Bhavin Pichardo [facility] ([id number]) [facility] CBC WITH DIFFERENTIAL 2019-10-14 16:17:00 Marino Bhavin [facility] PROTHROMBIN TIME / INR 2019-10-14 16:17:00 Bhavin Pichardo [facility] ACTIVATED PARTIAL 2019-10-14 16:17:00 Bhavin Pichardo [facility] THRMPLAS ELEANOR [facility] COVID-19 (ID NOW RAPID 2019-10-14 16:17:00 Bhavin Pichardo [facility] TESTING) [facility] Branch EKG-12 LEAD 2019-10-14 16:13:25 Bhavin Pichardo [facility] CT CHEST PULMONARY 2019-05-28 00:28:48 Almita Vargas [facility] ANGIOGRAM Medical Branch XR CHEST 1 VW 2019-05-27 22:57:06 Almita Vargas [facility] TROPONIN I 2019-05-27 22:56:00 Almita Vargas [facility] BASIC METABOLIC PANEL 2019-05-27 22:56:00 Almita Vargas [facility] (NA, K, CL, CO2, Medical Branch GLUCOSE, BUN, CREATININE, CA) CBC WITH DIFFERENTIAL 2019-05-27 22:56:00 Almita Vargas [facility] D-DIMER 2019-05-27 22:56:00 Almita Vargas [facility] POCT TEST 2019-05-27 22:43:00 Almita Vargas [facility] EKG-12 LEAD 2019-05-27 22:28:03 Almita Vargas [place] o [facility] CONSENT/REFUSAL FOR 2019-05-27 21:41:13 Doctor Unassigned, No Un [facility] DIAGNOSIS AND TREATMENT Name [facility] Branch Encounters Start End Encounter Admission Attending Care Care Encounter Source Date/Time Date/Time Type Type Clinicians Facility Department ID 2021-07-11 2021-07-11 [facility] [id number] Univers 19:09:00 20:23:00 BHAVIN juanjosegilberto [facility] 2021-07-11 2021-07-11 [facility] [id number] Univers 19:09:00 20:23:00 Bhavin [place] 350.1.13.10 i ty [place] 4.2.7.2.686 [facility] [id number] [address] 2021-05-09 2021-05-09 [facility] [id number] Univers 21:23:00 22:43:00 JULIO CÉSAR weir [facility] 2021-05-09 2021-05-09 [facility] [id number] Univers 21:23:00 22:43:00 Julio César [place] [id number] i ty of [place] 4.2.7.2.[address] [place] [id number] 2021-04-03 2021-04-03 Emergency X SAM [facility] ERT [id number] Univers 19:35:00 21:18:00 ALMITA weir [facility] 2021-04-03 2021-04-03 [facility] [id number] Univers 19:35:00 21:18:00 Almita [place] 350.1.13.10 i ty [place] 4.2.7.2.686 [facility] [id number] [address] 2021-03-07 2021-03-08 [facility] [id number] Univers 23:43:00 01:52:00 RUBY [facility] 2021-03-07 2021-03-08 Emergency [place], [facility] [id number] Univers 23:43:00 01:52:00 Ruby [place] [id number] i ty [facility] 4.2.7.2.686 [facility] [id number] [address] 2020-05-17 2020-05-17 Emergency [place], [facility] [id number] 13:51:00 17:08:00 Julio César R [place] 350.1.13.10 [place] [address] [place] [address] [id number] [facility] 2020-05-17 2020-05-17 Emergency [place], [facility] [id number] Univers 13:51:00 17:08:00 Julio César R [place] 350.1.13.10 i ty of [place] 4.2.7.2.[address] [place] [id number] 2020-05-17 2020-05-17 Emergency X [facility] ERT [id number] Univers 13:45:00 13:45:00 [facility] 2020-04-23 2020-04-23 Emergency [facility], [facility] [id number] 22:55:00 23:39:00 Ruby [place] [id number] [place] [address] [place] [address] [id number] [facility] 2020-04-23 2020-04-23 Emergency [facility], [facility] [id number] Univers 22:55:00 23:39:00 Ruby [place] 350.1.13.10 i ty of [place] 4.2.7.[address] [place] [id number] 2020-04-23 2020-04-23 Emergency X PERRY, [facility] ERT [id number] Univers 22:55:00 22:55:00 [facility] 2020-01-03 2020-01-03 Emergency Vargas, [facility] [id number] 12:08:00 16:01:00 Almita S [place] 350.1.13.10 [place] 4.2.7.2.686 [place] [id number] [facility] 2020-01-03 2020-01-03 Emergency [facility] [id number] Univers 12:08:00 16:01:00 Almita S [place] 350.1.13.10 i ty of [place] 4.2.7.2.686 [facility] [id number] [address] 2020-01-03 2020-01-03 Emergency X [facility] ERT [id number] Univers 12:08:00 12:08:00 ALMITA ity [facility] 2019-10-14 2019-10-14 [facility] [id number] 10:47:05 13:44:00 Almita S [place] 350.1.13.10 [place] [address] [place] [address] [id number] [facility] 2019-10-14 2019-10-14 Emergency [facility] ERT [id number] Univers 10:47:05 13:44:00 ALMITA ity [facility] 2019-10-14 2019-10-14 [facility] [id number] Univers 10:47:05 13:44:00 Almita S [place] 350.1.13.10 i ty of [place] 4.2.7.2.686 [facility] [id number] [address] 2019-05-27 2019-05-27 [facility] [id number] 15:49:53 19:35:00 Almita S [place] 350.1.13.10 [place] [address] [place] [address] [id number] [facility] 2019-05-27 2019-05-27 [facility] [id number] Univers 15:49:53 19:35:00 Almita S [place] 350.1.13.10 i ty of [place] 4.2.7.2.686 [facility] [id number] [address] 2019-05-27 2019-05-27 Orders Doctor BRANDON [id number] 00:00:00 00:00:00 Only UnassignedYANETH 350.1.13.10 [place] [facility] 4.2.7.2.686 [id number] 2019-05-27 2019-05-27 Orders Doctor BRANDON [id number] Univers 00:00:00 00:00:00 Only Unassigned, YANETH 350.1.13.10 ity of [place] [facility] 4.2.7.2.686 Jose as [id number] [address] Results Test Description Test Time Test Comments Results Result Comments Source POCT TEST 2021-03-08 04:55:00 Test Item Value Reference Range Interpretation Comme nts POCT PREG (test code = 1605) negative On board controls acceptable with C Line (test code = 3574) present POCT PREG LOT # (test code = 3575) [id number] POCT PREG TEST DATE (test code = 3576) Lab Interpretation (test code = 09064-6) [facility] [id number] 22:05:30CT Abdomen and Pelvis with intravenous contrast. CLINICAL HISTORY: Acute generalized Abdominal pain.DOSE: Up-to-date CT equipment and radiation dose reduction techniques wereemployed. CTDIvol: 25.76 mGy. DLP: 1271 mGy-cm. TECHNIQUE : Contiguous axial imaging from the level of the lung basesthrough the pubic symphysis were performed after the uncomplicatedadministration of Omnipaque contrast material. Coronal and sagittalreconstructions were obtained. Auto mA and/or iterative reconstruction wereused to reduce radiation dose. FINDINGS: ? Lower lungs: Clear. No pleural effusion or pericardial effusion. No sign ofhiatal hernia. Liver, Gallbladder and Spleen: Liver is 16.4 cm in length and appearsnormal. No calcified gallstones detected. Spleen measures approximately 11x 5 cm. Biliary ducts and the pancreatic duct appear of normal size. Peritoneum: ?No free air or free fluid. No lymphadenopathy. Pancreas and Adrenals: ?Unremarkable pancreas and adrenal glands. Kidneys and Ureters: ?No visible calculi in the renal collecting systems. No hydroureter or hydronephrosis. Vessels: Developmental variation noted with left renal vein extending downinto the abdomen and joining left common iliac vein. Retr operitoneum: No abnormal fluid or lymphadenopathy. Bowel: Mild diverticulosis of sigmoid colon. No acute changes. Normalappendix is visualized. Bladder and Reproductive Organs: Possible 11 mm fibroid in the lateralright subsidence location of the body of the uterus. Small cysts in bothovaries consistent with physiologic changes. Urinary bladder is poorlydistended and unopacified. Bones: Degenerative disc disease at L3-L4 with vacuum phenomenon in thedisc material, prominent disc osteophyte complex encroaching into thespinal canal causing spinal stenosis. Soft tissues: Unremarkable. CONCLUSION: No acute intra- abdominal or pelvic abnormalities detected. [facility], Radiant Results Inft User - 05/17/2020 4:06 PM CSTCT Abdomen and Pelvis with intravenous contrast.CLINICAL HISTORY: Acute generalized Abdominal pain.DOSE: Up-to-date CT equipment and radiation dose reduction techniques wereemployed. CTDIvol: 25.76 mGy. DLP: 1271 mGy-cm.TECHNIQUE : Contiguous axial imaging from the level of the lung basesthrough the pubic symphysis were performed after the uncomplicatedadministration of Omnipaque contrast material. Coronal and sagittalreconstructions were obtained. Auto mA and/or iterative reconstruction wereused to reduce radiation dose.FINDINGS: Lower lungs: Clear. No pleural effusion or pericardial effusion. No sign ofhiatal hernia.Liver, Gallbladder and Spleen: Liver is 16.4 cm in length and appearsnormal. No calcified gallstones detected. Spleen measures approximately 11x 5 cm. Biliary ducts and the pancreatic duct appear of normal size.Peritoneum: No free air or free fluid. No lymphadenopathy.Pancreas and Adrenals: Unremarkable pancreas and adrenal glands.Kidneys and Ureters: No visible calculi in the renal collecting systems. No hydroureter or hydronephrosis. Vessels: Developmental variation noted with left renal vein extending downinto the abdomen and joining left common iliac vein.Retroperitoneum: No abnormal fluid or lymphadenopathy.Bowel: Mild diverticulosis of sigmoid colon. Noacute changes. Normalappendix is visualized.Bladder and Reproductive Organs: Possible 11 mm fibroid in the lateralright subsidence location of the body of the uterus. Small cysts in bothovaries consistent with physiologic changes. Urinary bladder is poorlydistended and unopacified.Bones: Degenerative disc disease at L3-L4 with vacuum phenomenon in thedisc material, prominent disc osteophyte complex en croaching into thespinal canal causing spinal stenosis.Soft tissues: Unremarkable.CONCLUSION: No acute intra-abdominal or pelvic abnormalities detected.[facility]. METABOLIC PANEL ([id number]) 2020-05-17 21:35:00 Test Item Value Reference Range Interpretation Comments NA (test code = 136 mmol/L 135-145 9053521521) K (test code = 4.5 mmol/L 3.5-5 3977049032) CL (test code = 103 mmol/L 98-108 3624474641) CO2 TOTAL (test code = 27 mmol/L 23-31 1269885196) AGAP (test code = 2-16 7764048244) BUN (test code = 16 mg/dL 7-23 1772670455) GLUCOSE (test code = 95 mg/dL 70-110 1504018621) CREATININE (test code = 0.55 mg/dL 0.5-1.04 0450392421) TOTAL BILI (test code = 0.9 mg/dL 0.1-1.5 1160932093) CALCIUM (test code = 8.3 mg/dL 8.6-10.6 L 3635768416) T PROTEIN (test code = 7.8 g/dL 6.3-8.2 6210910001) ALBUMIN (test code = 4.1 g/dL 3.5-5 2707512236) ALK PHOS (test code = 75 U/L 34-122 6248682838) ALTv (test code = 15 U/L 5-35 1742-6) AST(SGOT) (test code = 32 U/L 13-40 8364827191) eGFR Calculation mL/min/1.73m2 (Non-) (test code = 5102237440) eGFR Calculation mL/min/1.73m2 () (test code = 6963780396) MARCO (test code = MARCO) Association of Glomerular Filtration Rate (GFR) and Staging of Kidney Disease* + --+ --+ ------+| GFR (mL/min/1.73 m2) ?| With Kidney Damage ?| ?Without Kidney Damage+ --------+ --------+ +| ?>90 ?| ?Stage one ?| ? Normal ?+ ---+ ---+ -------+| ?60-89 ?| ?Stage two ?| ? Decreased GFR ? + --+ --+ ------+| ?30-59 ?| ?Stage three ?| ? Stage three ? + --+ --+ ------+| ?15-29 ?| ?Stage four ? | ? Stage four ?+ ---+ ---+ -------+| ?<15 (or dialysis) ? ?| ?Stage five ? | ? Stage five ?+ ---+ ---+ -------+ *Each stage assumes the associated GFR level has been in effect for at least three months. ?Stages 1 to 5, with or without kidney disease, indicate chronic kidney disease. Notes: Determination of stages one and two (with eGFR >59mL/min/1.73 m2) requires estimation of kidney damage for at least three months as defined by structural or functional abnormalities of the kidney, manifested by either:Pathological abnormalities or Markers of kidney damage (including abnormalities in the composition of the blood or urine or abnormalities in imaging tests). Lab Interpretation Abnormal (test code = 27966-8) [facility] 21:34:00 Test Item Value Reference Range Interpretation Comments LIPASE (test code = 8584040149) 26 U/L 0-220 Lab Interpretation (test code = Normal 13273-3) [facility] 21:29:00 Test Item Value Reference Range Interpretation Comments APPEARANCE (test code = Hazy Clear A 7042104185) COLOR (test code = Yellow Yellow 4832897372) PH (test code = 4.8-8.0 0903179713) SP GRAVITY (test code = 1.003-1.030 3233374569) GLU U QUAL (test code = Normal Normal 5603540034) BLOOD (test code = 3+ Negative A 0714720917) KETONES (test code = Negative Negative 4456762412) PROTEIN (test code = 30 mg/dL Negative A 2887-8) UROBILIN (test code = Normal Normal 4537875750) BILIRUBIN (test code = Negative Negative 8630897348) NITRITE (test code = Negative Negative 0469522116) LEUK ROBERTO (test code = 250/uL Negative A 5008644300) RBC/HPF (test code = See_Comment H [Autom ated message] 8200822397) The system [employer] generated this result transmitted ref erence range: 0 - 3 HP F. The reference range was not used to int erpret this result as normal/abnormal . WBC/HPF (test code = See_Comment H [Autom ated message] 5328467917) The system [employer] generated this result transmitted ref erence range: 0 - 5 HP F. The reference range was not used to int erpret this result as normal/abnormal . BACTERIA (test code = Negative Negative 5786516121) MUCOUS (test code = Marked Negative LPF A 2101348744) SQ EPITH (test code = HPF 2729408396) Lab Interpretation (test Abnormal code = 91868-6) [facility], [id number] 21:21:00 Test Item Value Reference Range Interpretation Comments PREG SERUM (test code Negative = 5376549106) MARCO (test code = MARCO) Less than 10 IU/L. ?If low titer or ectopic is suspected, resubmit specimen in 48-72 hours. [facility] [id number] 20:57:00 Test Item Value Reference Range Interpretation Comments POCT PREG (test code = 1605) negative On board controls acceptable with present C Line (test code = 3574) POCT PREG LOT # (test code = 3575) [id number] POCT PREG TEST DATE (test 01/02/2022 code = 3576) Lab Interpretation (test code = Normal 13832-0) [facility] WITH [id number] 20:33:00 Test Item Value Reference Range Interpretation Comments WBC (test code = See_Comment [Automated 0890-2) message] The sy stem which generated this result transmitted reference range : 4.30 - 11.10 10*3/?L. The reference range was not used to interpret this result as normal/abnormal . RBC (test code = See_Comment [Automated 338-8) message] The sy stem which generated this result transmitted reference range : 3.93 - 5.25 10*6/?L. The reference range was not used to interpret this result as normal/abnormal . HGB (test code = 12.0 g/dL 11.6-15 718-7) HCT (test code = 38.5 % 35.7-45.2 4544-3) MCV (test code = 83.0 fL 80.6-95.5 787-2) MCH (test code = 25.9 pg 25.9-32.8 785-6) MCHC (test code = 31.2 g/dL 31.6-35.1 L 786-4) RDW-SD (test code = 45.9 fL 39-49.9 37321-9) RDW-CV (test code = 15.3 % 12-15.5 788-0) PLT (test code = See_Comment H [Automated 777-3) message] The sy stem which generated this result transmitted reference range : 166 - 358 10*3/ ?L. The reference r rupesh was not used to interpret this result as normal/abnormal . MPV (test code = 9.9 fL 9.5-12.9 14165-1) NRBC/100 WBC (test See_Comment [Automat ed code = 6051749346) message] The system which generated this result transmitted reference range : 0.0 - 10.0 /100 WBCs. The refer ence range was not u sed to interpret th is result as normal/abnormal . NRBC x10^3 (test code <0.01 See_Comment [Auto mated = 1981865016) message] The s ystem which generated this result transmitted reference range : 10*3/?L. The reference range was not used to interpret this result as normal/abnormal . GRAN MAT (NEUT) % 66.2 % (test code = 770-8) IMM GRAN % (test code 0.30 % = 4618812231) LYMPH % (test code = 26.8 % 736-9) MONO % (test code = 4.6 % 5905-5) EOS % (test code = 1.4 % 713-8) BASO % (test code = 0.7 % 706-2) GRAN MAT x10^3(ANC) 5.88 10*3/uL 1.88-7.09 (test code = 4353286719) IMM GRAN x10^3 (test 0.03 10*3/uL 0-0.06 code = 0818750198) LYMPH x10^3 (test code 2.38 10*3/uL 1.32-3.29 = 731-0) MONO x10^3 (test code 0.41 10*3/uL 0.33-0.92 = 742-7) EOS x10^3 (test code = 0.12 10*3/uL 0.03-0.39 711-2) BASO x10^3 (test code 0.06 10*3/uL 0.01-0.07 = 704-7) Lab Interpretation Abnormal (test code = 50863-1) [facility] [id number] 05:17:00 Test Item Value Reference Range Interpretation Comments POCT PREG (test code = 1605) negative On board controls acceptable with present C Line (test code = 3574) POCT PREG LOT # (test code = 3575) [id number] POCT PREG TEST DATE (test 2021-09-01 code = 3576) Lab Interpretation (test code = Normal 29413-4) [facility]ST 1 [id number] 18:56:37 No acute cardiopulmonary abnormality. Preliminary Report Dictated by Resident: Castro Guzman MD., have reviewed this study and agree with the abovereport. EXAM: XR CHEST 1 VW HISTORY: headache, shortness of breath, chest pain COMPARISON: Chest x-ray dated 05/27/2019. FINDINGS: The lungs are clear without evidence of consolidation, pleural effusion orpneumothorax. The cardiomediastinal silhouette is normal. A left cervical rib is incidentally noted. No acute osseous abnormality isidentified. [facility], Radiant Results Inft User - 01/03/2020 2:13 PM CDTEXAM: XR CHEST 1 VWHISTORY:headache, shortness of breath, chest pain COMPARISON: Chest x-ray dated 05/27/2019.FINDINGS:The lungsare clear without evidence of consolidation, pleural effusion orpneumothorax. The cardiomediastinal silhouette is normal. A left cervical rib is incidentally noted. No acute osseous abnormality isidentified.IMPRESSIONNo acute cardiopulmonary abnormality.Preliminary Report Dictated by Resident: Castro Becerril MD., have reviewed this study and agree with the abovereport.[facility] WO [id number] 18:41:07 No acute intracranial hemorrhage or mass effect. Paras Hernandez MD., have reviewed this study and agree with theabove report.CT HEAD WO CONTRAST HISTORY: 34-year-old female presents with acute hepatic and dizziness. COMPARISON: None TECHNIQUE: Axial CT of the head was performed and reconstructed at 5 mmintervals. Coronal and sagittal reformatted images were generated. FINDINGS: The ventriclesand cerebral sulci are normal in caliber and configuration.No hydrocephalus, midline shift or pathological extra-axial fluidcollection is present. The basal cisterns are unremarkable. There is no acuteintracranial hemorrhage or significant mass effect. Noparenchymal attenuation abnormality. The bobby-white matter differentiationis preserved. Partially empty sella. The mastoid air cells and paranasal air sinuses are clear. The calvariumand central skull base are unremarkable. [facility], Radiant Results Inft - 01/03/2020 2:13 PM CDTCT HEAD WO CONTRASTHISTORY: 34-year-old female presents with acute hepatic and dizziness.COMPARISON: NoneTECHNIQUE: Axial CT of the head was performed and reconstructed at 5 mmintervals. Coronal and sagittal reformatted images were generated.FINDINGS:The ventricles and cerebral sulci are normal in caliber and configuration.No hydrocephalus, midline shift or pathological extra-axial fluidcollection is present. The basal cisterns are unremarkable.There is no acute intracranial hemorrhage or significant mass effect. Noparenchymal attenuation abnormality. The bobby-white matter differentiationis preserved. Partially empty sella.The mastoid air cells and paranasal air sinuses are clear. The calvariumand central skull base are unremarkable.IMPRESSIONNo acute intracranial hemorrhage or mass effect.Paras Hernandez MD., have reviewed this study and agree with theabovereport.[facility]EL (NA, K, CL, CO2, GLUCOSE, BUN, CREATININE, CA)2020-01-03 18:30:00 Test Item Value Reference Range Interpretation Comments NA (test code = 137 mmol/L 135-145 9514277996) K (test code = 4.0 mmol/L 3.5-5 6217418916) CL (test code = 105 mmol/L 98-108 5751588619) CO2 TOTAL (test code = 28 mmol/L 23-31 8110132380) AGAP (test code = 2-16 3590785039) BUN (test code = 15 mg/dL 7-23 8675237226) GLUCOSE (test code = 89 mg/dL 70-110 6977179645) CREATININE (test code 0.52 mg/dL 0.5-1.04 = 4901540156) CALCIUM (test code = 8.6 mg/dL 8.6-10.6 0527646480) eGFR Calculation mL/min/1.73m2 (Non-) (test code = 6882689002) eGFR Calculation mL/min/1.73m2 () (test code = 0499796656) MARCO (test code = MARCO) Association of Glomerular Filtration Rate (GFR) and Staging of Kidney Disease* + -+ + ---+| GFR (mL/min/1.73 m2) ?| With Kidney Damage ?| ?Without Kidney Damage+ -------+ ------+ ---------+| ?>90 ?| ?Stage one ?| ? Normal ?+ --+ -+ ----+| ?60-89 ?| ?Stage two ?| ? Decreased GFR ? + -+ + ---+| ?30-59 ?| ?Stage three ?| ? Stage three ? + -+ + ---+| ?15-29 ?| ?Stage four ? | ? Stage four ?+ --+ -+ ----+| ?<15 (or dialysis) ? ?| ?Stage five ? | ? Stage five ?+ --+ -+ ----+ *Each stage assumes the associated GFR level has been in effect for at least three months. ?Stages 1 to 5, with or without kidney disease, indicate chronic kidney disease. Notes: Determination of stages one and two (with eGFR >59mL/min/1.73 m2) requires estimation of kidney damage for at least three months as defined by structural or functional abnormalities of the kidney, manifested by either:Pathological abnormalities or Markers of kidney damage (including abnormalities in the composition of the blood or urine or abnormalities in imaging tests). [facility] WITH [id number] 18:27:00 Test Item Value Reference Range Interpretation Comments WBC (test code = See_Comment [Automated 6690-2) message] The sy stem which generated this result transmitted reference range : 4.30 - 11.10 10*3/?L. The reference range was not used to interpret this result as normal/abnormal . RBC (test code = See_Comment [Automated 789-8) message] The sy stem which generated this result transmitted reference range : 3.93 - 5.25 10*6/?L. The reference range was not used to interpret this result as normal/abnormal . HGB (test code = 11.2 g/dL 11.6-15 L 718-7) HCT (test code = 36.3 % 35.7-45.2 4544-3) MCV (test code = 82.9 fL 80.6-95.5 787-2) MCH (test code = 25.6 pg 25.9-32.8 L 785-6) MCHC (test code = 30.9 g/dL 31.6-35.1 L 786-4) RDW-SD (test code = 49.1 fL 39-49.9 90207-7) RDW-CV (test code = 16.1 % 12-15.5 H 788-0) PLT (test code = See_Comment [Automated 777-3) message] The sy stem which generated this result transmitted reference range : 166 - 358 10*3/ ?L. The reference r rupesh was not used to interpret this result as normal/abnormal . MPV (test code = 10.1 fL 9.5-12.9 59231-9) NRBC/100 WBC (test See_Comment [Automat ed code = 5147396767) message] The system which generated this result transmitted reference range : 0.0 - 10.0 /100 WBCs. The refer ence range was not u sed to interpret th is result as normal/abnormal . NRBC x10^3 (test code <0.01 See_Comment [Auto mated = 5634082179) message] The s ystem which generated this result transmitted reference range : 10*3/?L. The reference range was not used to interpret this result as normal/abnormal . GRAN MAT (NEUT) % 65.7 % (test code = 770-8) IMM GRAN % (test code 0.50 % = 7714688664) LYMPH % (test code = 26.6 % 736-9) MONO % (test code = 4.9 % 5905-5) EOS % (test code = 1.9 % 713-8) BASO % (test code = 0.4 % 706-2) GRAN MAT x10^3(ANC) 6.23 10*3/uL 1.88-7.09 (test code = 5111749392) IMM GRAN x10^3 (test 0.05 10*3/uL 0-0.06 code = 1117532530) LYMPH x10^3 (test code 2.53 10*3/uL 1.32-3.29 = 731-0) MONO x10^3 (test code 0.47 10*3/uL 0.33-0.92 = 742-7) EOS x10^3 (test code = 0.18 10*3/uL 0.03-0.39 711-2) BASO x10^3 (test code 0.04 10*3/uL 0.01-0.07 = 704-7) Lab Interpretation Abnormal (test code = 57019-2) [facility]URIN[facility]YSIS2020-[facility]-31 18:22:00 Test Item Value Reference Range Interpretation Comments APPEARANCE (test code = Clear Clear 9208711982) COLOR (test code = Yellow Yellow 7192009708) PH (test code = 4.8-8.0 3014536910) SP GRAVITY (test code = 1.003-1.030 6382303894) GLU U QUAL (test code = Normal Normal 0582204041) BLOOD (test code = Negative Negative 2838578035) KETONES (test code = Negative Negative 2032090800) PROTEIN (test code = Negative Negative 2887-8) UROBILIN (test code = Normal Normal 9711446364) BILIRUBIN (test code = Negative Negative 1865180194) NITRITE (test code = Negative Negative 7933487837) LEUK ROBERTO (test code = Negative Negative 6517533172) RBC/HPF (test code = See_Comment H [Autom ated message] 1496217288) The system [employer] generated this result transmitted ref erence range: 0 - 3 HP F. The reference range was not used to int erpret this result as normal/abnormal . WBC/HPF (test code = See_Comment [Autom ated message] 6275272018) The system [employer] generated this result transmitted ref erence range: 0 - 5 HP F. The reference range was not used to int erpret this result as normal/abnormal . BACTERIA (test code = Few Negative A 5849662809) MUCOUS (test code = Slight Negative LPF A 1494889478) SQ EPITH (test code = HPF 5741439281) Lab Interpretation (test Abnormal code = 50621-0) [facility] HospitalPOCT [id number] 17:59:00 Test Item Value Reference Range Interpretation Comments POCT PREG (test code = 1605) negative On board controls acceptable with present C Line (test code = 3574) POCT PREG LOT # (test code = 3575) [id number] POCT PREG TEST DATE (test 12/02/2020 code = 3576) Lab Interpretation (test code = Normal 72074-0) [facility]IS2020-06-11 17:36:00 Test Item Value Reference Range Interpretation Comments APPEARANCE (test code = Hazy Clear A 1210011241) COLOR (test code = Yellow Yellow 9275674690) PH (test code = 4.8-8.0 6642429088) SP GRAVITY (test code = 1.003-1.030 6531056840) GLU U QUAL (test code = Normal Normal 8450246287) BLOOD (test code = Negative Negative 0095269152) KETONES (test code = Negative Negative 5964463137) PROTEIN (test code = Negative Negative 2887-8) UROBILIN (test code = Normal Normal 6411253885) BILIRUBIN (test code = Negative Negative 8751963042) NITRITE (test code = Negative Negative 1460452471) LEUK ROBERTO (test code = 25/uL Negative A 3093925763) RBC/HPF (test code = See_Comment [Autom ated message] 6549160290) The system [employer] generated this result transmitted ref erence range: 0 - 3 HP F. The reference range was not used to int erpret this result as normal/abnormal . WBC/HPF (test code = See_Comment [Autom ated message] 1771171720) The system [employer] generated this result transmitted ref erence range: 0 - 5 HP F. The reference range was not used to int erpret this result as normal/abnormal . BACTERIA (test code = Few Negative A 8618896087) MUCOUS (test code = Marked Negative LPF A 1030153832) SQ EPITH (test code = HPF 3988399170) Lab Interpretation (test Abnormal code = 54763-6) [facility] HospitalXR CHEST 1 VW [id number] 16:54:27 1. Minimal congestion in the lungs, nonspecific and likely secondary toviral infection/bronchitis.2. No pneumonia. Disclaimer: Generally, the findings on chest imaging in COVID-19 are notspecific, and overlap with other infections, including influenza, H1N1,SARS and MERS.According to the Centers forDisease Control (CDC) and the [employer], viral testing remains the only specific method of diagnosiseven if CXR or CT findings are suggestive of COVID-19. PROCEDURE: CHEST XRAY, portable AP erect. CLINICAL INDICATION: sob COMPARISON: None FINDINGS: Lungs: Minimal congestion near the shmuel and in the lower lungs. Pleura: No pleural effusion or pneumothorax is seen. The heart is normal insize. No acute bony abnormality. [facility], Radiant Results Inft User - 10/14/2019 11:55 AM CDTPROCEDURE: CHEST XRAY, portable AP erect.CLINICAL INDICATION: sob COMPARISON: NoneFINDINGS:Lungs: Minimal congestion near the shmuel and in the lower lungs.Pleura: No pleural effusion or pneumothorax is seen. The heart is normal insize.No acute bony abnormality.IMPRESSION1. Minimal congestion in the lungs, nonspecific and likely secondary toviral infection/bronchitis.2. No pneumonia. Disclaimer: Generally, the findings on chest imaging in COVID-19 are notspecific, and overlap with other infections, including influenza, H1N1,SARS and MERS.According to the Centers for Disease Control (CDC) and the [employer], viral testing remains the only specific method of diagnosiseven if CXR or CT findings are suggestive of COVID-19.[facility] HospitalTROPONIN [id number] 16:54:00 Test Item Value Reference Range Interpretation Comments TROPONIN I (test <0.012 See_Comment [Automated code = 9688294716) message] The system which generated this result transmitted reference range : <=0.034 ng/mL. The reference range was not used to interpr et this result as normal/abnormal . MARCO (test code = Equal or Less than MARCO) 0.034 ng/ml---Normal ?Note: Cardiac troponin begins to rise 3-4 hours after the onset of ischemia. Repeat in 4-6 hours if the sample was drawn within 3-4 hours of the onset of the symptom and found normal. Between 0.035 and 0.120 ng/mL--- Borderline. Questionable myocardial injury or necrosis ? ?Note: Serial measurement may be necessary to confirm or exclude the diagnosis of myocardial injury or necrosis; Clinical correlation (symptoms, EKGs, imaging studies, and others) required; Repeat in 4-6 hours if clinically indicated. ? Equal or Higher than 0.121 ng/mL---Abnormal. Myocardial Injury or Necrosis Likely ? Biotin has been reported to cause a negative bias, interpret results relative to patient's use of biotin. ? Lab Interpretation Normal (test code = 15536-1) [facility] HospitalCOVID-19 (ID NOW RAPID TESTING)2019-10-14 16:51:00 Test Item Value Reference Range Interpretation Comments SARS-CoV-2 Rapid ID NOW Not Detected Not Detected (test code = 83112-0) MARCO (test code = MARCO) ID NOW COVID-19 Assay is an isothermal nucleic acid amplification test intended for the qualitative detection of nucleic acid from SARS-CoV-2 viral RNA in nasopharyngeal (PACKAGER HAND) specimens. It is used under Emergency Use Authorization (EUA) by FDA. The limit of detection (LOD) of the assay is 125 Genome Equivalents/mL. A positive result is indicative of the presence of SARS-CoV-2 RNA. ?Clinical correlation with patient history and other diagnostic information is necessary to determine patient infection status. A negative (Not Detected) result does not preclude SARS-CoV-2 infection. In patients with clinical symptoms and other tests that are consistent with SARS-CoV-2 infection, negative results should be treated as presumptive negative and a new specimen should be tested with alternative PCR molecular test. Invalid: Please collect a new specimen for repeat patient testing if clinically indicated. Lab Interpretation Normal (test code = 39498-3) [facility] HospitalaPTT2020-06-11 16:44:00 Test Item Value Reference Range Interpretation Comments APTT Patient (test See_Comment [Automat ed code = 3173-2) message] The system which generated this result transmitted reference range : 23 - 38 Seconds . The reference range was not used to interpr et this result as normal/abnormal . MARCO (test code = MARCO) The [facility] patient population mean normal value for aPTT is 30 seconds. Lab Interpretation Normal (test code = 00534-2) [facility] HospitalCOMP. METABOLIC PANEL (94664)2019-10-14 16:43:00 Test Item Value Reference Range Interpretation Comments NA (test code = 137 mmol/L 135-145 5042728028) K (test code = 4.1 mmol/L 3.5-5 9010563597) CL (test code = 107 mmol/L 98-108 7837786837) CO2 TOTAL (test code = 26 mmol/L 23-31 2127303456) AGAP (test code = 2-16 6418967117) BUN (test code = 18 mg/dL 7-23 6585021336) GLUCOSE (test code = 97 mg/dL 70-110 4164304900) CREATININE (test code 0.55 mg/dL 0.5-1.04 = 0598231920) TOTAL BILI (test code 0.3 mg/dL 0.1-1.1 = 5586480639) CALCIUM (test code = 9.0 mg/dL 8.6-10.6 2207522427) T PROTEIN (test code = 7.7 g/dL 6.3-8.2 4788279886) ALBUMIN (test code = 4.1 g/dL 3.5-5 1094467401) ALK PHOS (test code = 89 U/L 34-122 3089209696) ALTv (test code = 14 U/L 5-35 1742-6) AST(SGOT) (test code = 22 U/L 13-40 4319440896) eGFR Calculation mL/min/1.73m2 (Non-) (test code = 1026595539) eGFR Calculation mL/min/1.73m2 () (test code = 4793393156) MARCO (test code = MARCO) Association of Glomerular Filtration Rate (GFR) and Staging of Kidney Disease* + -+ + ---+| GFR (mL/min/1.73 m2) ?| With Kidney Damage ?| ?Without Kidney Damage+ -------+ ------+ ---------+| ?>90 ?| ?Stage one ?| ? Normal ?+ --+ -+ ----+| ?60-89 ?| ?Stage two ?| ? Decreased GFR ? + -+ + ---+| ?30-59 ?| ?Stage three ?| ? Stage three ? + -+ + ---+| ?15-29 ?| ?Stage four ? | ? Stage four ?+ --+ -+ ----+| ?<15 (or dialysis) ? ?| ?Stage five ? | ? Stage five ?+ --+ -+ ----+ *Each stage assumes the associated GFR level has been in effect for at least three months. ?Stages 1 to 5, with or without kidney disease, indicate chronic kidney disease. Notes: Determination of stages one and two (with eGFR >59mL/min/1.73 m2) requires estimation of kidney damage for at least three months as defined by structural or functional abnormalities of the kidney, manifested by either:Pathological abnormalities or Markers of kidney damage (including abnormalities in the composition of the blood or urine or abnormalities in imaging tests). [facility] HospitalLIPASE, [id number] 16:43:00 Test Item Value Reference Range Interpretation Comments LIPASE (test code = 6877612644) 48 U/L 0-220 Lab Interpretation (test code = Normal 96328-8) [facility] HospitalPROTHROMBIN TIME / [id number] 16:42:00 Test Item Value Reference Range Interpretation Comments PROTIME PATIENT (test See_Comment [Auto mated message] code = 5964-2) The system [employer] generated this result transmitted ref erence range: 12.0 - 1 4.7 Seconds. The re ference range was not u sed to interpret this result as normal/abnor mal. INR (test code = 6301-6) Nor mal INR <1.1; Warfarin Therap eutic range 2.0 to 3. 0 or 2.5 to 3.5, dep ending upon the indica tions. Lab Interpretation (test Normal code = 14773-8) [facility] WITH [id number] 16:29:00 Test Item Value Reference Range Interpretation Comments WBC (test code = See_Comment [Automated 0890-2) message] The sy stem which generated this result transmitted reference range : 4.30 - 11.10 10*3/?L. The reference range was not used to interpret this result as normal/abnormal . RBC (test code = See_Comment [Automated 789-8) message] The sy stem which generated this result transmitted reference range : 3.93 - 5.25 10*6/?L. The reference range was not used to interpret this result as normal/abnormal . HGB (test code = 10.8 g/dL 11.6-15 L 718-7) HCT (test code = 35.1 % 35.7-45.2 L 4544-3) MCV (test code = 83.4 fL 80.6-95.5 787-2) MCH (test code = 25.7 pg 25.9-32.8 L 785-6) MCHC (test code = 30.8 g/dL 31.6-35.1 L 786-4) RDW-SD (test code = 49.1 fL 39-49.9 76518-6) RDW-CV (test code = 16.0 % 12-15.5 H 788-0) PLT (test code = See_Comment [Automated 777-3) message] The sy stem which generated this result transmitted reference range : 166 - 358 10*3/ ?L. The reference r rupesh was not used to interpret this result as normal/abnormal . MPV (test code = 10.0 fL 9.5-12.9 92677-8) NRBC/100 WBC (test See_Comment [Automat ed code = 4754115847) message] The system which generated this result transmitted reference range : 0.0 - 10.0 /100 WBCs. The refer ence range was not u sed to interpret th is result as normal/abnormal . NRBC x10^3 (test code <0.01 See_Comment [Auto mated = 2621446595) message] The s [employer] Solution[employer] which generated this result transmitted reference range : 10*3/?L. The reference range was not used to interpret this result as normal/abnormal . GRAN MAT (NEUT) % 67.4 % (test code = 770-8) IMM GRAN % (test code 0.40 % = 9160437237) LYMPH % (test code = 24.7 % 736-9) MONO % (test code = 4.4 % 5905-5) EOS % (test code = 2.7 % 713-8) BASO % (test code = 0.4 % 706-2) GRAN MAT x10^3(ANC) 6.53 10*3/uL 1.88-7.09 (test code = 1952829417) IMM GRAN x10^3 (test 0.04 10*3/uL 0-0.06 code = 0013252524) LYMPH x10^3 (test code 2.40 10*3/uL 1.32-3.29 = 731-0) MONO x10^3 (test code 0.43 10*3/uL 0.33-0.92 = 742-7) EOS x10^3 (test code = 0.26 10*3/uL 0.03-0.39 711-2) BASO x10^3 (test code 0.04 10*3/uL 0.01-0.07 = 704-7) Lab Interpretation Abnormal (test code = 83111-7) [facility] HospitalCT [facility] [id number] 00:50:34No pulmonary embolus.2. No thoracic aortic aneurysm or dissection.3. No infiltrates effusions or edema. RL: 6200 END OF REPORT Ordering Physician: ALMITA VARGAS Clinical Indication: PE suspected, intermediate prob, positive D-dimer Additio nal Clinical Information: Comparison: None Technique: The exam is performed with axial postcontrast images with 3-DMIPS reconstruction. ?The exam was performed using the ALARA ?principles. Interpretation based on extrapolated NASCET criteria. Findings: The thoracic aorta is normal in diameter. There are no pulmonaryemboli The heart size is normal. No pericardial effusion. The upper liverspleen enhances normally. Lung windows show no infiltrates or effusions. [facility], Radiant Results Inft User - 05/27/2019 6:51 PM CSTOrdering Physician: ALMITA Godinezinical Indication: PE suspected, intermediate prob, positive D- dimer Additional Clinical Information:Comparison: NoneTechnique: The exam is performed with axial postcontrast images with 3-DMIPS reconstruction. The exam was performed using the ALARA principles. Interpretation based on extrapolated NASCET criteria.Findings: The thoracic aorta is normal in diameter. There are no pulmonaryemboli The heart size is normal. No pericardial effusion. The upper liverspleen enhances normally.Lung windows show no infiltrates or effusions.IMPRESSIONNo pulmonary embolus.2. No thoracic aortic aneurysm or dissection.3. No infiltrates effusions or edema.RL: 6200END OF REPORT [facility][id number] 23:38:00 Test Item Value Reference Interpretation Comments Range D-DIMER (test code = See_Comment H [Autom ated 6046413555) message] The system which generated this result transmitted reference range : <0.41 ?g/mL (FEU). The reference range was not used to interpret this result as normal/abnormal . MARCO (test code = This test may be MARCO) used in conjunction with a clinical pretest probability (PTP) assessment model to exclude venous thromboembolism (VTE) in patients suspected of deep venous thrombosis (DVT) and pulmonary embolism (PE) A D-Dimer value less than 0.50 ?g/ml (FEU) has a negative predicative value of 96 to 100% (95% CI)and 97 to 100% (95% CI) as an aid in the diagnosis of deep vein thrombosis (DVT) and pulmonary embolism when there is low or moderate pretest probability of PE or DVT. D-Dimer values are expressed in initial fibrinogen equivalent units (FEU)" The assay results should be used with other information, including the clinical context, in forming a diagnosis. Lab Interpretation Abnormal (test code = 47296-0) [facility] HospitalTROPONIN [id number] 23:30:00 Test Item Value Reference Range Interpretation Comments TROPONIN I (test <0.012 See_Comment [Automated code = 7578420061) message] The system which generated this result transmitted reference range : <=0.034 ng/mL. The reference range was not used to interpr et this result as normal/abnormal . MARCO (test code = Equal or Less than MARCO) 0.034 ng/ml---Normal ?Note: Cardiac troponin begins to rise 3-4 hours after the onset of ischemia. Repeat in 4-6 hours if the sample was drawn within 3-4 hours of the onset of the symptom and found normal. Between 0.035 and 0.120 ng/mL--- Borderline. Questionable myocardial injury or necrosis ? ?Note: Serial measurement may be necessary to confirm or exclude the diagnosis of myocardial injury or necrosis; Clinical correlation (symptoms, EKGs, imaging studies, and others) required; Repeat in 4-6 hours if clinically indicated. ? Equal or Higher than 0.121 ng/mL---Abnormal. Myocardial Injury or Necrosis Likely ? Biotin has been reported to cause a negative bias, interpret results relative to patient's use of biotin. ? Lab Interpretation Normal (test code = 29132-2) [facility]BAL[facility] (NA, K, CL, CO2, GLUCOSE, BUN, CREATININE, CA)2019-05-27 23:19:00 Test Item Value Reference Range Interpretation Comments NA (test code = 139 mmol/L 135-145 6814955694) K (test code = 3.7 mmol/L 3.5-5 1618698789) CL (test code = 103 mmol/L 98-108 4122436615) CO2 TOTAL (test code = 28 mmol/L 23-31 2300260888) AGAP (test code = 2-16 4132085748) BUN (test code = 12 mg/dL 7-23 9442643272) GLUCOSE (test code = 90 mg/dL 70-110 2974048715) CREATININE (test code 0.60 mg/dL 0.5-1.04 = 4486608924) CALCIUM (test code = 8.8 mg/dL 8.6-10.6 0937990195) eGFR Calculation mL/min/1.73m2 (Non-) (test code = 3973488579) eGFR Calculation mL/min/1.73m2 () (test code = 0555014264) MARCO (test code = MARCO) Association of Glomerular Filtration Rate (GFR) and Staging of Kidney Disease* + -+ + ---+| GFR (mL/min/1.73 m2) ?| With Kidney Damage ?| ?Without Kidney Damage+ -------+ ------+ ---------+| ?>90 ?| ?Stage one ?| ? Normal ?+ --+ -+ ----+| ?60-89 ?| ?Stage two ?| ? Decreased GFR ? + -+ + ---+| ?30-59 ?| ?Stage three ?| ? Stage three ? + -+ + ---+| ?15-29 ?| ?Stage four ? | ? Stage four ?+ --+ -+ ----+| ?<15 (or dialysis) ? ?| ?Stage five ? | ? Stage five ?+ --+ -+ ----+ *Each stage assumes the associated GFR level has been in effect for at least three months. ?Stages 1 to 5, with or without kidney disease, indicate chronic kidney disease. Notes: Determination of stages one and two (with eGFR >59mL/min/1.73 m2) requires estimation of kidney damage for at least three months as defined by structural or functional abnormalities of the kidney, manifested by either:Pathological abnormalities or Markers of kidney damage (including abnormalities in the composition of the blood or urine or abnormalities in imaging tests). [facility] WITH [id number] 23:07:00 Test Item Value Reference Range Interpretation Comments WBC (test code = See_Comment H [Automated 3190-2) message] The sy stem which generated this result transmitted reference range : 4.30 - 11.10 10*3/?L. The reference range was not used to interpret this result as normal/abnormal . RBC (test code = See_Comment [Automated 519-8) message] The sy stem which generated this result transmitted reference range : 3.93 - 5.25 10*6/?L. The reference range was not used to interpret this result as normal/abnormal . HGB (test code = 12.0 g/dL 11.6-15 718-7) HCT (test code = 38.8 % 35.7-45.2 4544-3) MCV (test code = 83.8 fL 80.6-95.5 787-2) MCH (test code = 25.9 pg 25.9-32.8 785-6) MCHC (test code = 30.9 g/dL 31.6-35.1 L 786-4) RDW-SD (test code = 49.0 fL 39-49.9 05059-3) RDW-CV (test code = 15.9 % 12-15.5 H 788-0) PLT (test code = See_Comment H [Automated 777-3) message] The sy stem which generated this result transmitted reference range : 166 - 358 10*3/ ?L. The reference r rupesh was not used to interpret this result as normal/abnormal . MPV (test code = 10.2 fL 9.5-12.9 63924-9) NRBC/100 WBC (test See_Comment [Automat ed code = [id number]) message] The system which generated this result transmitted reference range : 0.0 - 10.0 /100 WBCs. The refer ence range was not u sed to interpret th is result as normal/abnormal . NRBC x10^3 (test code <0.01 See_Comment [Auto mated = [id number]) message] The s ystem which generated this result transmitted reference range : 10*3/?L. The reference range was not used to interpret this result as normal/abnormal . GRAN MAT (NEUT) % 68.7 % (test code = 770-8) IMM GRAN % (test code 0.50 % = 5730821822) LYMPH % (test code = 24.5 % 736-9) MONO % (test code = 4.1 % 5905-5) EOS % (test code = 1.9 % 713-8) BASO % (test code = 0.3 % 706-2) GRAN MAT x10^3(ANC) 8.30 10*3/uL 1.88-7.09 H (test code = 0202788036) IMM GRAN x10^3 (test 0.06 10*3/uL 0-0.06 code = 0951859623) LYMPH x10^3 (test code 2.97 10*3/uL 1.32-3.29 = 731-0) MONO x10^3 (test code 0.50 10*3/uL 0.33-0.92 = 742-7) EOS x10^3 (test code = 0.23 10*3/uL 0.03-0.39 711-2) BASO x10^3 (test code 0.04 10*3/uL 0.01-0.07 = 704-7) Lab Interpretation Abnormal (test code = 55308-7) [facility] [id number] 22:58:55HISTORY: SOB. TECHNIQUE: Portable AP erect view of the chest is obtained. Comparison madewith 02/18/2016 study. FINDINGS: No acute pneumonia. No pneumothorax or pleural effusion orpulmonary congestion detected. Cardiac size is within normal limits. [place] of prominent left cervical rib. CONCLUSIONS:No signs of acute cardiopulmonary disease.[facility], Radiant Results Inft User - 05/27/2019 5:00 PM CSTHISTORY: SOB.TECHNIQUE: Portable AP erect view of the chest is obtained. Comparison madewith 02/18/2016 study.FINDINGS: No acute pneumonia. No pneumothorax or pleural effusion orpulmonary congestion detected. Cardiac size is within normal limits. [place] of prominent left cervical rib.CONCLUSIONS: No signs of acute cardiopulmonary disease.[id number] 22:43:00 Test Item Value Reference Range Interpretation Comments POCT PREG (test code = 1605) Negative On board controls acceptable with yes C Line (test code = 3574) POCT PREG LOT # (test code = 3575) [id number] POCT PREG TEST DATE (test 12-02-20 code = 3576) Lab Interpretation (test code = Normal 70999-8) [facility]
[2021-07-17] MEDS ORDERED: ALBUTEROL INHALER 60 PUFF/8 GM IH ONE (12:34)
[2021-07-17] MEDS ORDERED: HYDROCODONE/CHLORPHEN 5 ML/OSYR ONE ×2 (12:35→15:09)
[2021-07-17] MEDS ORDERED: ALBUTEROL 2.5 MG/3 ML NEB SOL ONE (12:37)
--- NOTE | 2021-07-17 13:33 | RAD REPORT ---
EXAM DESCRIPTION: RAD - Chest Pa And Lat (2 Views) - 07/17/2021 1:22 pm CLINICAL HISTORY: CHEST PAIN Chest pain. COMPARISON: Chest Single View dated 06/26/2018 FINDINGS: The lungs are clear. The heart is normal in size. No displaced fractures. IMPRESSION: No acute or concerning finding suspected.
[2021-07-17 14:00] LABS: SARS-COV-2 RT PCR NEGATIVE (NEGATIVE)
--- NOTE | 2021-07-17 15:09 | ER ---
Nurse's Notes [facility] Name: Lorelei Bolaños Age: 35 yrs Sex: Female : 1985 Arrival Date: 07/17/2021 Time: 12:08 Bed 14 Private MD: Diagnosis: Acute upper respiratory infection, unspecified Presentation: 07/17 12:19 Chief complaint: Patient states: she has been having cough and chest tightness for ap3 approx a week now. patient reports being evaluated at a different facility last week, however her symptoms have not improved. Patient states she feels chest pain in the upper middle part of her chest, and she feels like her chest is tight. Patient also reports cough, right ear pain and recent onset vomiting. Coronavirus screen: Client presents with at least one sign or symptom that may indicate coronavirus-19. Ebola Screen: No symptoms or risks identified at this time. Initial Sepsis Screen: Does the patient meet any 2 criteria? No. Patient's initial sepsis screen is negative. Does the patient have a suspected source of infection? No. Patient's initial sepsis screen is negative. Risk Assessment: Do you want to hurt yourself or someone else? Patient reports no desire to harm self or others. Onset of symptoms was July 10, 2021. 12:19 Method Of Arrival: Ambulatory ap3 12:19 Acuity: DUTCH 3 ap3 Triage Assessment: 12:22 General: Appears in no apparent distress. Behavior is calm, cooperative. Pain: ap3 Complains of pain in mid-sternal area Pain began gradually, Also complains of cough and chest tightness. Neuro: Level of Consciousness is awake, alert, obeys commands, Oriented to person, place, time, situation. Respiratory: Reports cough that is dry, pain with cough Airway is patent Respiratory effort is even, unlabored. 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 Flu vaccine is not up to date. - Social history:: Smoking status: Patient reports the use of cigarette tobacco products, denies chronic smoking, but will smoke occasionally, Reported history of juuling and/or vaping. Patient uses alcohol, occasionally. street drugs, marijuana. Screenin:23 Abuse screen: Denies threats or abuse. Nutritional screening: No deficits noted. ap3 Tuberculosis screening: No symptoms or risk factors identified. Fall Risk No fall in past 12 months (0 pts). Assessment: 13:28 Reassessment: Patient and/or family updated on plan of care and expected duration. Pain ap3 level reassessed. Patient is alert, oriented x 3, equal unlabored respirations, skin warm/dry/pink. 14:30 Reassessment: Patient and/or family updated on plan of care and expected duration. Pain ap3 level reassessed. Patient is alert, oriented x 3, equal unlabored respirations, skin warm/dry/pink. Patient states feeling better. Patient states symptoms have improved. Vital Signs: 12:19 BP 116 / 64; Pulse 97; Resp 18; Temp 97.8; Pulse Ox 97% ; Weight 138.35 kg; Height 4 ap3 ft. 11 in. (149.86 cm); 13:28 BP 113 / 63; Pulse 81; Pulse Ox 97% ; ap3 14:30 BP 113 / 57; Pulse 77; Pulse Ox 98% on R/A; ap3 12:19 Body Mass Index 61.60 (138.35 kg, 149.86 cm) ap3 ED Course: 12:08 Patient arrived in ED. as 12:12 Osvaldo Payne NP is PHCP. pm1 12:12 Abdoulaye Russell DO is Attending Physician. pm1 12:21 Triage completed. ap3 12:23 Arm band placed on right wrist. EKG completed in triage. Results shown to MD. ap3 12:23 Patient has correct armband on for positive identification. Placed in gown. Bed in low ap3 position. Call light in reach. Pulse ox on. NIBP on. Door closed. Noise minimized. 12:57 Cristina Chavis, JENN is Primary Nurse. ap3 13:21 Chest Pa And Lat (2 Views) XRAY In Process Unspecified. EDMS 13:31 Warm blanket given. ap3 15:36 No provider procedures requiring assistance completed. Patient did not have IV access ap3 during this emergency room visit. Administered Medications: 12:38 Drug: Albuterol 2.5 mg Route: Inhalation; ap3 12:57 Follow up: Response: No adverse reaction ap3 12:38 Drug: Tussionex Pennkinetic ER (chlorpheniramine-hydrocodone) Suspension 5 ml Route: PO;ap3 15:08 Follow up: Response: No adverse reaction ap3 15:08 Drug: Tussionex Pennkinetic ER (chlorpheniramine-hydrocodone) Suspension 5 ml Route: PO;ap3 15:37 Follow up: Response: No adverse reaction ap3 Outcome: 15:08 Discharge ordered by . pm1 15:36 Discharged to home ambulatory. ap3 15:36 Condition: good 15:36 Discharge instructions given to patient, Instructed on discharge instructions, follow up and referral plans. medication usage, Demonstrated understanding of instructions, follow-up care, medications, Prescriptions given X 3. 15:37 Patient left the ED. ap3 Signatures: Dispatcher [employer] Meenakshi Tom Patrick, NP SENIOR GEOTECHNICAL ENGINEER pm1 Cristina Chavis RN RN ap3
--- NOTE | 2021-07-17 15:09 | EDPHYS ---
Physician Documentation [facility] Name: Lorelei Bolaños Age: 35 yrs Sex: Female : 1985 Arrival Date: 07/17/2021 Time: 12:08 Bed 14 Private MD: ED Physician Abdoulaye Russell HPI: 07/17 12:21 This 35 yrs old Female presents to ER via Ambulatory with complaints of Chest pm1 Pain. 12:21 The patient or guardian reports cough. Onset: The symptoms/episode began/occurred 1 pm1 week(s) ago. Severity of symptoms: in the emergency department the symptoms are unchanged. Modifying factors: The symptoms are alleviated by nothing, the symptoms are aggravated by Cough. Associated signs and symptoms: Pertinent positives: rhinorrhea, sore throat, Pertinent negatives: fever. Seen at [facility] system for the same complaint and had swabs for flu Covid and strep performed. They were negative. Patient reports no improvement in symptoms and no medications were prescribed. 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 Flu vaccine is not up to date. - Social history:: Smoking status: Patient reports the use of cigarette tobacco products, denies chronic smoking, but will smoke occasionally, Reported history of juuling and/or vaping. Patient uses alcohol, occasionally. street drugs, marijuana. ROS: 12:21 Constitutional: Negative for fever, chills, and weight loss. pm1 12:21 Abdomen/GI: Negative for abdominal pain, nausea, vomiting, diarrhea, and constipation, Back: Negative for injury and pain, MS/Extremity: Negative for injury and deformity, Skin: Negative for injury, rash, and discoloration, Neuro: Negative for headache, weakness, numbness, tingling, and seizure. 12:21 Cardiovascular: Positive for chest pain, with cough. 12:21 Respiratory: Positive for cough, "sounds productive". 12:21 All other systems are negative. Exam: 12:21 Constitutional: This is a well developed, well nourished patient who is awake, alert, pm1 and in no acute distress. Head/Face: Normocephalic, atraumatic. 12:21 Back: No spinal tenderness. No costovertebral tenderness. Full range of motion. Skin: Warm, dry with normal turgor. Normal color with no rashes, no lesions, and no evidence of cellulitis. MS/ Extremity: Pulses equal, no cyanosis. Neurovascular intact. Full, normal range of motion. 12:21 Eyes: Exam is negative for acute changes, Extraocular movements: no acute changes, Conjunctiva: no acute changes. 12:21 ENT: Exam is negative for acute changes, Mouth: no acute changes, Lips: normal, moist, Oral mucosa: normal, pink and intact, moist. 12:21 Cardiovascular: Exam negative for acute changes, Rate: normal, Rhythm: regular, Pulses: no pulse deficits are appreciated, Heart sounds: normal. 12:21 Respiratory: Exam negative for acute changes, respiratory distress, shortness of breath, Breath sounds: are clear throughout. 12:21 Neuro: Exam negative for acute changes, Orientation: is normal, Mentation: is normal, Motor: is normal, moves all fours. Vital Signs: 12:19 BP 116 / 64; Pulse 97; Resp 18; Temp 97.8; Pulse Ox 97% ; Weight 138.35 kg; Height 4 ap3 ft. 11 in. (149.86 cm); 13:28 BP 113 / 63; Pulse 81; Pulse Ox 97% ; ap3 14:30 BP 113 / 57; Pulse 77; Pulse Ox 98% on R/A; ap3 12:19 Body Mass Index 61.60 (138.35 kg, 149.86 cm) ap3 MDM: 12:25 Patient medically screened. pm1 15:07 Data reviewed: vital signs. Data interpreted: Pulse oximetry: on room air is 98 %. pm1 Interpretation: normal. Counseling: I had a detailed discussion with the patient and/or guardian regarding: the historical points, exam findings, and any diagnostic results supporting the discharge/admit diagnosis, radiology results, the need for outpatient follow up, to return to the emergency department if symptoms worsen or persist or if there are any questions or concerns that arise at home. 07/17 12:20 Order name: Strep pm1 07/17 12:20 Order name: COVID-19/FLU A+B (Document "Date of Onset" if Symptomatic) pm1 07/17 12:20 Order name: Chest Pa And Lat (2 Views) XRAY; Complete Time: 14:09 pm1 07/17 12:21 Order name: Group A Streptococcus Rapid Sc; Complete Time: 14:09 EDMS 07/17 12:21 Order name: COVID-19/FLU A+B; Complete Time: 14:09 EDMS 07/17 13:27 Order name: Throat Culture EDMS Administered Medications: 12:38 Drug: Albuterol 2.5 mg Route: Inhalation; ap3 12:57 Follow up: Response: No adverse reaction ap3 12:38 Drug: Tussionex Pennkinetic ER (chlorpheniramine-hydrocodone) Suspension 5 ml Route: PO;ap3 15:08 Follow up: Response: No adverse reaction ap3 15:08 Drug: Tussionex Pennkinetic ER (chlorpheniramine-hydrocodone) Suspension 5 ml Route: PO;ap3 15:37 Follow up: Response: No adverse reaction ap3 Disposition: 21:34 Co-signature as Attending Physician, Abdoulaye Russell DO I agree with the assessment and ms3 plan of care. Disposition Summary: 07/17/21 15:08 Discharge Ordered Location: Home pm1 Problem: new pm1 Symptoms: have improved pm1 Condition: Stable pm1 Diagnosis - Acute upper respiratory infection, unspecified pm1 Followup: pm1 - With: Emergency Department - When: As needed - Reason: Worsening of condition Followup: pm1 - With: Private Physician - When: 2 - 3 days - Reason: Recheck today's complaints, Continuance of care, Re-evaluation by your physician Discharge Instructions: - Discharge Summary Sheet pm1 - Upper Respiratory Infection, Adult pm1 Forms: - Medication Reconciliation Form pm1 - Thank You Letter pm1 - Antibiotic Education pm1 - Prescription Opioid Use pm1 Prescriptions: - Ventolin HFA 90 mcg/actuation Inhalation HFA aerosol inhaler - inhale 1 puff by INHALATION route every 4-6 hours As needed; 1 Inhaler; pm1 Refills: 0, Product Selection Permitted - Medrol (Art) 4 mg Oral Tablets, Dose Pack - take 1 tablet by ORAL route as directed - follow package instructions; 1 pm1 packet; Refills: 0, Product Selection Permitted - Guaifenesin AC 10-100 mg/5 mL Oral Liquid - take 10 milliliters by ORAL route every 4 hours As needed; 240 milliliter; pm1 Refills: 0, Product Selection Permitted Signatures: Dispatcher [employer] EDOsvaldo Sue, PEANUT BUTTER MAKER PEANUT BUTTER MAKER pm1 Cristina Chavis, JENN RN ap3 Abdoulaye Russell, DO ms3
[2021-07-17 16:31] VITALS: BP 113/57; O2SAT 98
[2021-07-17 16:32] VITALS: TEMP 97.8
--- NOTE | 2021-07-18 07:24 | EKG ---
Test Date: 2021-07-17 Test Time: 12:21:57 Project Intern: HELGA MEASUREMENT RESULTS: Intervals: Rate: 90 UT: 182 QRSD: 84 QT: 368 QTc: 450 Mica: P: 55 UT: 182 QRS: 45 T: 41 INTERPRETIVE STATEMENTS: Normal sinus rhythm Cannot rule out Anterior infarct, age undetermined Abnormal ECG Compared to ECG 06/26/2018 17:49:24 Myocardial infarct finding now present Sinus arrhythmia no longer present Electronically Signed On 07-18-21 07:22:09 CDT by Conor Kowalski
== END 2021-07-17 15:37 | disposition home or self-care (01) ==
LOC: ER 12:05
DX: J06.9 Acute upper respiratory infection, unspecified (principal); Z20.822 Contact with and (suspected) exposure to COVID-19; F17.210 Nicotine dependence, cigarettes, uncomplicated
CPT/HCPCS: 0240U; 71046; 87070; 87081; 93005; 99284

== ENCOUNTER 2021-12-20 09:59 | Emergency (ER) | payer SELFPAY ==
--- OUTSIDE RECORDS SUMMARY | 2021-12-20 10:05 | XMS REPORT | Continuity of Care Document ---
:1985 Author Organization [facility] t Address [address] [place] [address] Care Team Providers Name Role Phone PCP, PATIENT DOES NOT HAVE A Primary Care Physician UnavailBHAVIN Soria Attending Clinician Unavailable Bhavin Pichardo MD Attending Clinician JULIO CÉSAR COLEMAN Attending Clinician Unavailable Julio César Pang Attending Clinician ALMITA VARGAS Attending Clinician Unavailable Almita Renteria S Attending Clinician RUBY PERRY Attending Clinician Unavailable Ruby Zambrano Attending Clinician Doctor Unassigned, [place] Attending Clinician Unavailable JULIO CÉSAR COLEMAN Admitting Clinician Unavailable RUBY PERRY Admitting Clinician Unavailable BHAVIN PICHARDO Admitting Clinician Unavailable Payers Payer Name Policy Type Policy Number Effective Date Expiration Date S charles MEDICAID PENDING PENDING 2021 00:00:00 [facility] [place] [id number] 2021 WOMEN 00:00:00 Problems Condition Condition Condition Status Onset Resolution Last Treating Co mments Source Name Details Category Date Date Treatment Clinician Date 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 0-17 ity of mellitus mellitus 00:00: [place] with skin with skin 00 Medi norberto complicati complicati Br anch on on [...] Date Date Clinician NO KNOWN Drug Active Formerly [facility] ALLERGIE Class ity of S [facility] Social History Social Habit Start Date Stop Date Quantity Comments Source History of Cigarette Smoker Universi ty of tobacco use [facility] Exposure to Not sure [place] of SARS-CoV-2 [facility] (event) [place] Alcohol intake 2021-05-09 2021-05-09 0 /d University of 00:00:00 00:00:00 [facility] Tobacco use and 2016-02-18 2016-02-18 Never used Universit y of exposure 00:00:00 00:00:00 [facility] Sex Ass[birth year] Universit y of 00:00:00 00:00:00 [facility] Smoking Status Start Date Stop Date Source Light tobacco smoker 2016-02-18 00:00:00 [facility] ity of [facility] Medications Ordered Filled Start Stop Current Ordering Indication Dosage Frequency Signature Comments Components Source Medication Medication Date Date Medication? Clinician (SIG) Name Name benzonatate Yes [id number] 100mg Take 1 Univers 100 mg 3-09 capsule by ity of capsule 00:00: mouth 3 [place] 00 (three) Medical times [place] daily as needed for Cough. azithromyci Yes [id number] 250mg Take 1 Univers n 3-09 tablet by ity of (ZITHROMAX 00:00: mouth [place] Z-SUSAN) 250 00 daily. Medical mg tablet Take 500 Branch mg day 1, then 250 mg days 2 to 5. montelukast Yes [id number] 10mg Take 1 Univers 10 mg 3-09 tablet by ity of tablet 00:00: mouth [place] 00 every 24 Medical (twenty-fo Branch ur) hours as needed (symptoms) . loratadine- 0 Yes [id number] 1{tbl} Take 1 Univers pseudoephed 3-09 tablet by ity of rine 00:00: mouth (CLARITIN-D 00 daily. Medica l 24 HOUR) Branch 10-240 mg per 24 hr tablet albuterol 0 Yes [id number] 2{puff} Inhale 2 Univers 90 1-05 Puffs ity of mcg/actuati 00:00: every 4 [place] as on inhaler 00 (four) Medical hours as Branch needed for Wheezing or Shortness of Breath. benzonatate Yes [id number] 100mg Take 1 Univers 100 mg 1-05 capsule by ity of capsule 00:00: mouth (three) Medical times Branch daily as needed for Cough. bromphenira 0 Yes [id number] 5mL Take 5 mL Univers mine-pseudo 1-05 by mouth 4 it y of ephedrine-D 00:00: (four[place] (BROMFED 00 times Medical DM) 2-30-10 daily as Bran ch mg/5 mL needed for syrup Cough. albuterol Yes [id number] 2{puff} Inhale 2 Univers 90 1-05 Puffs ity of mcg/actuati 00:00: every 4 [place] as on inhaler 00 (four) Medical hours as Branch needed for Wheezing or Shortness of Breath. benzonatate 0 Yes [id number] 100mg Take 1 Univers 100 mg 1-05 capsule by ity of capsule 00:00: mouth (three) Medical times Branch daily as needed for Cough. bromphenira 0 Yes [id number] 5mL Take 5 mL Univers mine-pseudo 1-05 by mouth 4 it y of ephedrine-D 00:00: (four[place] (BROMFED 00 times Medical DM) 2-30-10 daily as Bran ch mg/5 mL needed for syrup Cough. dexamethaso 2020-05 No 10mg 10 mg, Uni vers ne 05-08 11-04 Intramuscu ity of (DECADRON 06:30: 05:52 lar, ONCE, [place] PHOSPHATE) 00 :00 1 dose, On Med ical injection Let[place] Branch 10 mg 114/21 at 0130, STAT ketorolac 2020-05 No 60mg 60 mg, Unive rs (TORADOL) 05-08 Intramuscu ity of injection 06:30: 05:52 lar, ONCE, [place] 60 mg 00 :00 1 dose, On Medical [place] Branch 03/08/21 at 0130, CARLINE
Fa culty member approving Restricted medication [...] as needed for Other (muscle spasm). predniSONE 2020-05- No [id number] 40mg Take 2 U nivers 20 mg 05-0808 tablets by ity of tablet 00:00: 05:59 [...] 05/17/20 at Branch 1500, CARLINE FENTanyl PF No 50ug 50 mcg, Un jo (SUBLIMAZE 05-17 Slow IV ity o f (PF)) 21:00: 22:32 Push, [place] injection 00 :00 ONCE, 1 Medical 50 mcg dose, Wed Branch 05/17/20 at 1500, Routine ibuprofen Yes [id number] 600mg Take 1 Univers 600 mg 1-13 100 tablet by ity of tablet 00:00: mouth [place] 00 every 6 Medical (six) Branch hours as needed for Pain (scale 4-6). ibuprofen Yes [id number] 600mg Take 1 Univers 600 mg 1-13 100 tablet by ity of tablet 00:00: mouth [place] 00 every 6 Medical (six) Branch hours as needed for Pain (scale 4-6). ibuprofen Yes [id number] 600mg Take 1 Univers 600 mg 1-13 100 tablet by ity of tablet 00:00: mouth [place] 00 every 6 Medical (six) Branch hours as needed for Pain (scale 4-6). ibuprofen 0 Yes [id number] 600mg Take 1 Univers 600 mg 1-13 100 tablet by ity of tablet 00:00: mouth [place] 00 every 6 Medical (six) Branch hours as needed for Pain (scale 4-6). ibuprofen Yes [id number] 600mg Take 1 Univers 600 mg 1-13 100 tablet by ity of tablet 00:00: mouth [place] 00 every 6 Medical (six) Branch hours as needed for Pain (scale 4-6). penicillin 2019-05- No 500mg 500 mg, Un jo v [...] tablet at 0015, CARLINE penicillin 2019-05- No [id number] 500mg Take 1 Univers v potassium 06-24 tablet by it y of 500 mg 00:00: 05:59 mouth 4 [place] tablet 00 :00 (four) Medical times Branch daily for 7 days. acetaminoph 2019-05- No [id number] 1{tbl} Take 1 U nivers en-codeine 06-24- tablet by ity of 300-30 mg 00:00: 05:59 mouth [place] tablet 00 :00 every 6 Medical (six) Branch hours as needed for Pain (scale 7-10) for up to 7 days. Indication s: acute pain NaCl 0.9% 2019- No 500mL at 999 Univ ers (NS) bolus 8-31 08-31 mL/hr, 500 it y of infusion 20:30: 20:53 mL, IV [place] 500 mL 00 :00 Infusion, Medical ONCE, 1 Branch dose, [facility] 01/03/20 at 1530, STAT ketorolac 2019- No 30mg 30 mg, Unive rs (TORADOL) 01-02 Slow IV ity of injection 20:30: 19:50 Push, [place] 30 mg 00 :00 ONCE, 1 Medical dose, [facility] 01/03/20 at 1530, CARLINE
Fa culty member approving Restricted medication : ALMITA VARGAS albuterol 2019-0 2020- No 2{puff} 2 Puff, U nivers [...] No 120mL 120 mL, Unive rs (OMNIPAQUE 1-24 -24 Intravenou it y of 350 00:45: 00:45 s, ONCE, 1 [place] BULK-150 00 :00 dose, Lety Medica l mL) 05/27/19 at [place] injection 1845, 120 mL Routine acetaminoph 2015-05 [...] Immunizations Ordered Filled Immunization Date Status Comments [facility] e Immunization Name Name Influenza Virus 2016-02-19 Completed Universit y of Vaccine Quad IM 3+ 00:00:00 [facility] Influenza Virus 2016-02-19 Completed Universit y of Vaccine Quad IM 3+ 00:00:00 [facility] Influenza Virus 2016-02-19 Completed Universit y of Vaccine Quad IM 3+ 00:00:00 [facility] Influenza Virus 2016-02-19 Completed Universit y of Vaccine Quad IM 3+ 00:00:00 [facility] Influenza Virus 2016-02-19 Completed Universit y of Vaccine Quad IM 3+ 00:00:00 [facility] [place] [facility] Branch Influenza Virus 2016-02-19 Completed Universit y of Vaccine Quad IM 3+ 00:00:00 [facility] [place] [facility] Branch Influenza Virus 2016-02-19 Completed Universit y of Vaccine Quad IM 3+ 00:00:00 [facility] [place] [facility] Branch Influenza Virus 2016-02-19 Completed Universit y of Vaccine Quad IM 3+ 00:00:00 [facility] [place] [facility] Branch Influenza Virus 2016-02-19 Completed Universit y of Vaccine Quad IM 3+ 00:00:00 [facility] [place] [facility] Branch Influenza Virus 2016-02-19 Completed Universit y of Vaccine Quad IM 3+ 00:00:00 [facility] Vital Signs Vital Name Observation Time Observation Value Comments Source Systolic blood 2021-07-12 01:00:00 139 mm[Hg] Univer sity of pressure [facility] Diastolic blood 2021-07-12 01:00:00 83 mm[Hg] Unive rsity of pressure [facility] Heart rate 2021-07-12 01:00:00 85 /min [facility] Body temperature 2021-07-12 01:00:00 36.94 Rohini [facility] Respiratory rate 2021-07-12 01:00:00 18 /min [facility] Body height 2021-07-12 01:00:00 149.9 cm [facility] Body weight 2021-07-12 01:00:00 129.729 kg [facility] BMI 2021-07-12 01:00:00 57.76 kg/m2 [facility] Oxygen saturation in 2021-07-12 01:00:00 99 /min [facility] Arterial blood by [facility] Pulse oximetry Branch Systolic blood 2021-05-10 03:19:00 149 mm[Hg] Univer sity of pressure [facility] Diastolic blood 2021-05-10 03:19:00 86 mm[Hg] Unive rsity of pressure [facility] Heart rate 2021-05-10 03:19:00 98 /min Universi ty [facility] [place] [facility] Body temperature 2021-05-10 03:19:00 37.22 Rohini [facility] Respiratory rate 2021-05-10 03:19:00 18 /min Univ [facility] [place] [facility] Oxygen saturation in 2021-05-10 03:19:00 97 /min University of Arterial blood by [facility] norberto Pulse oximetry Branch Systolic blood 2021-04-04 03:16:24 116 mm[Hg] Univer sity of pressure [place] [facility] Diastolic blood 2021-04-04 03:16:24 64 mm[Hg] Unive rsity of pressure [place] [facility] Heart rate 2021-04-04 03:16:24 77 /min Universi ty [facility] [place] [facility] Respiratory rate 2021-04-04 03:16:24 18 /min Univ [facility] [place] [facility] Oxygen saturation in 2021-04-04 03:16:24 96 /min University of Arterial blood by [facility] Pulse oximetry Branch Body temperature 2021-04-04 01:33:00 36.83 Rohini [facility] [place] [facility] Body height 2021-04-04 01:33:00 149.9 cm Universi ty [facility] [place] [facility] Body weight 2021-04-04 01:33:00 145.151 kg [facility]i ty [facility] [place] [facility] BMI 2021-04-04 01:33:00 64.63 kg/m2 [facility]i [facility] [place] [facility] Systolic blood 2021-03-08 06:03:00 142 mm[Hg] Univer sity of pressure [place] [facility] Diastolic blood 2021-03-08 06:03:00 80 mm[Hg] Unive rsity of pressure [place] [facility] Heart rate 2021-03-08 06:03:00 66 /min Universi ty [facility] [place] [facility] Respiratory rate 2021-03-08 06:03:00 21 /min Univ ers[facility] [place] [facility] Oxygen saturation in 2021-03-08 06:03:00 100 /min University of Arterial blood by [facility] Pulse oximetry Branch Body temperature 2021-03-08 04:39:00 37.17 Rohini Univ ers[facility] [place] [facility] Body height 2021-03-08 04:39:00 149.9 cm Universi ty [facility] [place] [facility] Body weight 2021-03-08 04:39:00 127.007 kg Universi ty [facility] [place] [facility] BMI 2021-03-08 04:39:00 56.55 kg/m2 [facility]i ty [facility] [place] [facility] Systolic blood 2020-05-17 22:30:00 99 mm[Hg] Univer sity of pressure [place] [facility] Diastolic blood 2020-05-17 22:30:00 54 mm[Hg] Unive rsity of pressure [place] [facility] Heart rate 2020-05-17 22:30:00 76 /min Universi ty [facility] [place] [facility] Respiratory rate 2020-05-17 22:30:00 18 /min Univ ers[facility] [place] [facility] Oxygen saturation in 2020-05-17 22:30:00 100 /min University of Arterial blood by [facility] norberto Pulse oximetry Branch Body temperature 2020-05-17 19:53:00 36.5 Rohini Univ ers[facility] [place] [facility] Body weight 2020-05-17 19:53:00 127.007 kg [facility]i ty [facility] [place] [facility] BMI 2020-05-17 19:53:00 56.55 kg/m2 [facility] [place] [facility] Systolic blood 2020-05-17 22:30:00 99 mm[Hg] Univer sity of pressure [place] [facility] Diastolic blood 2020-05-17 22:30:00 54 mm[Hg] Unive rsity of pressure [place] [facility] Heart rate 2020-05-17 22:30:00 76 /min Universi ty [facility] [place] [facility] Respiratory rate 2020-05-17 22:30:00 18 /min Univ [facility] [place] [facility] Oxygen saturation in 2020-05-17 22:30:00 100 /min University of Arterial blood by [facility] norberto Pulse oximetry Branch Body temperature 2020-05-17 19:53:00 36.5 Rohini Univ [facility] [place] [facility] Body weight 2020-05-17 19:53:00 127.007 kg [facility] [place] [facility] BMI 2020-05-17 19:53:00 56.55 kg/m2 [facility] [place] [facility] Systolic blood 2020-04-24 04:53:00 158 mm[Hg] Univer sity of pressure [place] [facility] Diastolic blood 2020-04-24 04:53:00 69 mm[Hg] Unive rsity of pressure [place] [facility] Heart rate 2020-04-24 04:53:00 61 /min [facility]i ty [facility] [place] [facility] Body temperature 2020-04-24 04:53:00 37.5 Rohini Univ [facility] [place] [facility] Respiratory rate 2020-04-24 04:53:00 20 /min Univ [facility] [place] [facility] Body weight 2020-04-24 04:53:00 127.007 kg [facility]i [facility] [place] [facility] BMI 2020-04-24 04:53:00 56.55 kg/m2 [facility] [place] [facility] Oxygen saturation in 2020-04-24 04:53:00 100 /min University of Arterial blood by [facility] norberto Pulse oximetry Branch Systolic blood 2020-04-24 04:53:00 158 mm[Hg] Univer sity of pressure [place] [facility] Diastolic blood 2020-04-24 04:53:00 69 mm[Hg] Unive rsity of pressure [place] [facility] Heart rate 2020-04-24 04:53:00 61 /min [facility]i ty [facility] [place] [facility] Body temperature 2020-04-24 04:53:00 37.5 Rohini Univ [facility] [place] [facility] Respiratory rate 2020-04-24 04:53:00 20 /min Univ [facility] [place] [facility] Body weight 2020-04-24 04:53:00 127.007 kg [facility]i ty [facility] [place] [facility] BMI 2020-04-24 04:53:00 56.55 kg/m2 [facility] [place] [facility] Oxygen saturation in 2020-04-24 04:53:00 100 /min University of Arterial blood by [facility] Pulse oximetry Branch Body temperature 2020-01-03 21:00:05 36.44 Rohini Univ ers[facility] [place] [facility] Systolic blood 2020-01-03 20:20:00 127 mm[Hg] Univer sity of pressure [place] [facility] Diastolic blood 2020-01-03 20:20:00 68 mm[Hg] Unive rsity of pressure [place] [facility] Heart rate 2020-01-03 20:20:00 68 /min Universi ty [facility] [place] [facility] Respiratory rate 2020-01-03 20:20:00 12 /min Univ ers[facility] [place] [facility] Oxygen saturation in 2020-01-03 20:20:00 99 /min University of Arterial blood by [facility] norberto Pulse oximetry Branch Body height 2020-01-03 17:01:00 149.9 cm Universi ty [facility] [place] [facility] Body weight 2020-01-03 17:01:00 127.007 kg [facility] [place] [facility] BMI 2020-01-03 17:01:00 56.55 kg/m2 [facility] [place] [facility] Body temperature 2020-01-03 21:00:05 36.44 Rohini Univ [facility] [place] [facility] Systolic blood 2020-01-03 20:20:00 127 mm[Hg] Univer sity of pressure [place] [facility] Diastolic blood 2020-01-03 20:20:00 68 mm[Hg] Unive rsity of pressure [place] [facility] Heart rate 2020-01-03 20:20:00 68 /min Universi ty [facility] [place] [facility] Respiratory rate 2020-01-03 20:20:00 12 /min Univ ers[facility] [place] [facility] Oxygen saturation in 2020-01-03 20:20:00 99 /min University of Arterial blood by [place] [employer] norberto Pulse oximetry Branch Body height 2020-01-03 17:01:00 149.9 cm [facility] [place] [facility] Body weight 2020-01-03 17:01:00 127.007 kg [facility] [place] [facility] BMI 2020-01-03 17:01:00 56.55 kg/m2 [facility] [place] [facility] Systolic blood 2019-10-14 18:30:00 134 mm[Hg] Univer sity of pressure [place] [facility] Diastolic blood 2019-10-14 18:30:00 72 mm[Hg] Unive rsity of pressure [place] [facility] Heart rate 2019-10-14 18:30:00 73 /min [facility]i [facility] [place] [facility] Respiratory rate 2019-10-14 18:30:00 17 /min Univ [facility] [place] [facility] Oxygen saturation in 2019-10-14 18:30:00 97 /min University of Arterial blood by [facility] norberto Pulse oximetry Branch Body temperature 2019-10-14 15:46:00 36.67 Rohini [facility] [place] [facility] Body height 2019-10-14 15:46:00 152.4 cm [facility] [place] [facility] Body weight 2019-10-14 15:46:00 127.007 kg [facility] [place] [facility] BMI 2019-10-14 15:46:00 54.68 kg/m2 [facility] [place] [facility] Systolic blood 2019-10-14 18:30:00 134 mm[Hg] Univer sity of pressure [place] [facility] Diastolic blood 2019-10-14 18:30:00 72 mm[Hg] Unive rsity of pressure [place] [facility] Heart rate 2019-10-14 18:30:00 73 /min [facility]i [facility] [place] [facility] Respiratory rate 2019-10-14 18:30:00 17 /min Univ [facility] [place] [facility] Oxygen saturation in 2019-10-14 18:30:00 97 /min University of Arterial blood by [facility] Pulse oximetry Branch Body temperature 2019-10-14 15:46:00 36.67 Rohini [facility] [place] [facility] Body height 2019-10-14 15:46:00 152.4 cm [facility] [place] [facility] Body weight 2019-10-14 15:46:00 127.007 kg [facility] [place] [facility] BMI 2019-10-14 15:46:00 54.68 kg/m2 [facility] [place] [facility] Systolic blood 2019-05-28 00:40:30 132 mm[Hg] Univer sity of pressure [place] [facility] Diastolic blood 2019-05-28 00:40:30 80 mm[Hg] Unive rsity of pressure [place] [facility] Heart rate 2019-05-28 00:40:30 83 /min [facility]i [facility] [place] [facility] Respiratory rate 2019-05-28 00:40:30 18 /min Univ [facility] [place] [facility] Oxygen saturation in 2019-05-28 00:40:30 99 /min University of Arterial blood by [facility] Pulse oximetry Branch Body temperature 2019-05-27 22:45:22 36.72 Rohini [facility] [place] [facility] Body weight 2019-05-27 21:48:00 127.007 kg [facility] [place] [facility] BMI 2019-05-27 21:48:00 54.68 kg/m2 [facility] [place] [facility] Systolic blood 2019-05-28 00:40:30 132 mm[Hg] Univer sity of pressure [place] [facility] Diastolic blood 2019-05-28 00:40:30 80 mm[Hg] Unive rsity of pressure [place] [facility] Heart rate 2019-05-28 00:40:30 83 /min [facility] [place] [facility] Respiratory rate 2019-05-28 00:40:30 18 /min Univ [facility] [place] [facility] Oxygen saturation in 2019-05-28 00:40:30 99 /min University of Arterial blood by [facility] Pulse oximetry Branch Body temperature 2019-05-27 22:45:22 36.72 Rohini [facility] [place] [facility] Body weight 2019-05-27 21:48:00 127.007 kg [facility] BMI 2019-05-27 21:48:00 54.68 kg/m2 [facility] Procedures Procedure Date / Time Performing Clinician Source Performed RAPID STREP SCREEN FOR 2021-07-12 01:08:00 [facility] GROUP A Medical Branch RAPID INFLUENZA A/B 2021-07-12 01:08:00 Bhavin Pichardo [facility] COVID-19 (ID NOW RAPID 2021-07-12 01:08:00 Bhavin [facility] TESTING) Medical Branch CONSENT/REFUSAL FOR 2021-07-12 00:40:57 Doctor Unassigned, No [facility] [place] [facility] Name Medical Branch XR CHEST 2 VW 2021-05-10 04:05:14 Julio César Coleman [place] [facility] NOTICE OF PRIVACY 2021-05-10 03:11:40 Doctor Unassigned, No [facility] Branch CONSENT/REFUSAL FOR 2021-05-10 03:08:35 Doctor Unassigned, No [facility] [place] DI[facility]NOS[facility] TREATMENT Name Medical [place] URINALYSIS 2021-04-04 02:04:00 Almita Vargas [facility] RAPID STREP SCREEN FOR 2021-04-04 02:04:00 Almita Vargas [facility] GROUP A Medical Branch CONSENT/REFUSAL FOR 2021-04-04 01:28:15 Doctor Unassigned, No [facility] [place] DIAGNOSIS AND TREATMENT Name Medical Branch XR KNEE 3 VW RIGHT 2021-03-08 05:41:41 Ruby Perry [facility] XR RIBS 3 VW RIGHT 2021-03-08 05:41:41 Ruby Perry [facility] URINALYSIS 2021-03-08 04:56:00 Ruby Perry [facility] POCT TEST 2021-03-08 04:55:00 Ruby Perry [facility] CONSENT/REFUSAL FOR 2021-03-08 04:26:49 Doctor Unassigned, No [facility] [place] DIAGNOSIS AND TREATMENT Name Medical Branch CT ABDOMEN PELVIS W 2020-05-17 22:00:14 Julio César Coleman [facility] CONTRAST [facility] Branch URINALYSIS 2020-05-17 20:58:00 Julio César Coleman [facility] POCT TEST 2020-05-17 20:57:00 Julio César Coleman [facility] LIPASE 2020-05-17 20:11:00 Julio César [facility] TEST, SERUM 2020-05-17 20:11:00 Julio César Coleman [facility] COMP. METABOLIC PANEL 2020-05-17 20:11:00 Julio César Coleman [facility] ([id number]) Medical [place] CBC WITH DIFF 2020-05-17 20:11:00 Julio César [facility] NOTICE OF PRIVACY 2020-05-17 19:45:39 Doctor Unassigned, No [facility]SENT/REFUSAL FOR 2020-05-17 19:45:23 Doctor Unassigned, No [facility] [place] DI[facility] TREATMENT Name [facility] POCT TEST 2020-04-24 05:17:00 Ruby Perry [facility] NOTICE OF PRIVACY 2020-04-24 04:47:03 Doctor Unassigned, No [facility] CONSENT/REFUSAL FOR 2020-04-24 04:46:22 Doctor Unassigned, No [facility] [place] [facility]REATMENT Name [facility] XR CHEST 1 VW 2020-01-03 18:47:04 Almita Vargas [facility] CT HEAD WO CONTRAST 2020-01-03 18:19:31 Almita Vargas [facility] BASIC METABOLIC PANEL 2020-01-03 18:05:00 Almita Vargas [facility] (NA, K, CL, CO2, Medical Branch GLUCOSE, BUN, CREATININE, [place]) CBC WITH DIFF 2020-01-03 18:05:00 Almita Vargas [facility] URINALYSIS 2020-01-03 18:05:00 Almita Vargas [facility] POCT TEST 2020-01-03 17:59:00 Almita Vargas [facility] EKG-12 LEAD 2020-01-03 17:31:39 Almita Vargas [facility] NOTICE OF PRIVACY 2020-01-03 16:54:57 Doctor Unassigned, No [facility] PRACTICES Name Medical Branch CONSENT/REFUSAL FOR 2020-01-03 16:54:25 Doctor Unassigned, No [facility] DIAGNOSIS AND TREATMENT Name Medical Branch URINALYSIS 2019-10-14 17:14:00 Almita Vargas [facility] XR CHEST 1 VW COVID 2019-10-14 16:52:08 Bhavin Pichardo [facility] LIPASE 2019-10-14 16:17:00 Bhavin Pichardo [facility] TROPONIN I 2019-10-14 16:17:00 Bhavin Pichardo [facility] COMP. METABOLIC PANEL 2019-10-14 16:17:00 Bhavin Pichardo [facility] ([id number]) Medical Branch CBC WITH DIFFERENTIAL 2019-10-14 16:17:00 Bhavin Pichardo [facility] PROTHROMBIN TIME / INR 2019-10-14 16:17:00 Bhavin Pichardo [facility] ACTIVATED PARTIAL 2019-10-14 16:17:00 Bhavin Pichardo [facility] THRMPLAS ELEANOR [facility] COVID-19 (ID NOW RAPID 2019-10-14 16:17:00 Bhavin Pichardo [facility] TESTING) Medical Branch EKG-12 LEAD 2019-10-14 16:13:25 Bhavin Pichardo [facility] CT CHEST PULMONARY 2019-05-28 00:28:48 Almita Vargas [facility] ANGIOGRAM Medical Branch XR CHEST 1 VW 2019-05-27 22:57:06 Almita Vargas [facility] TROPONIN I 2019-05-27 22:56:00 Almita Vargas [facility] BASIC METABOLIC PANEL 2019-05-27 22:56:00 Almita Vargas [facility] (NA, K, CL, CO2, Medical Branch GLUCOSE, BUN, CREATININE, CA) CBC WITH DIFFERENTIAL 2019-05-27 22:56:00 Almita Vargas [facility] D-DIMER 2019-05-27 22:56:00 Almita Vargas [place] [facility] POCT TEST 2019-05-27 22:43:00 [facility] EKG-12 LEAD 2019-05-27 22:28:03 Almita Vargas [place] [facility] CONSENT/REFUSAL FOR 2019-05-27 21:41:13 Doctor Unassigned, No Un [facility] DIAGNOSIS AND TREATMENT Name Medical [place] Encounters Start End Encounter Admission Attending Care Care Encounter Source Date/Time Date/Time Type Type Clinicians Facility Department ID 2021-07-11 2021-07-11 Emergency [facility] [id number] Univers 19:09:00 20:23:00 BHAVIN [facility] 2021-07-11 2021-07-11 [facility] [id number] Univers 19:09:00 20:23:00 Bhavin [place] 350.1.13.10 i ty of [place] 4.2.7.2.686 [facility] [id number] [address] 2021-05-09 2021-05-09 Emergency X [facility] ERT [id number] Univers 21:23:00 22:43:00 JULIO CÉSAR [facility] 2021-05-09 2021-05-09 Emergency [facility] [id number] Univers 21:23:00 22:43:00 Julio César [place] 350.1.13.10 i ty of [place] 4.2.7.2.686 [facility] [id number] [address] 2021-04-03 2021-04-03 Emergency [facility] ERT [id number] Univers 19:35:00 21:18:00 ALMITA [facility] 2021-04-03 2021-04-03 Emergency [facility] [id number] Univers 19:35:00 21:18:00 Almita [place] 350.1.13.10 i ty of [place] 4.2.7.2.686 [facility] [id number] [address] 2021-03-07 2021-03-08 Emergency X PERRY, [facility] ERT [id number] Univers 23:43:00 01:52:00 RUBY ity of [facility] 2021-03-07 2021-03-08 Emergency [place], [facility] [id number] Univers 23:43:00 01:52:00 Ruby [place] 350.1.13.10 i ty of [place] 4.2.7.2.686 [facility] [id number] [address] 2020-05-17 2020-05-17 Emergency [place], [facility] [id number] 13:51:00 17:08:00 Julio César R [place] 350.1.13.10 [place] 4.2.7.2.686 [facility] [id number] [facility] 2020-05-17 2020-05-17 Emergency [place], [facility] [id number] Univers 13:51:00 17:08:00 Julio César R [place] 350.1.13.10 i ty of [place] 4.2.7.2.686 [facility] [id number] [address] 2020-05-17 2020-05-17 Emergency X [facility] ERT [id number] Univers 13:45:00 13:45:00 ity [facility] 2020-04-23 2020-04-23 Emergency [place], [facility] [id number] 22:55:00 23:39:00 Ruby [place] 350.1.13.10 [place] 4.2.7.2.686 [facility] [id number] [facility] 2020-04-23 2020-04-23 Emergency [place], [facility] [id number] Univers 22:55:00 23:39:00 Ruby [place] 350.1.13.10 i ty of [place] 4.2.7.2.686 [facility] [id number] [address] 2020-04-23 2020-04-23 Emergency X PERRY, [facility] ERT [id number] Univers 22:55:00 22:55:00 RUBY weir [facility] 2020-01-03 2020-01-03 Emergency [facility] [id number] 12:08:00 16:01:00 Almita S [place] 350.1.13.10 [place] 4.2.7.2.686 [facility] [id number] [facility] 2020-01-03 2020-01-03 Emergency [facility] [id number] Univers 12:08:00 16:01:00 Almita S [place] 350.1.13.10 i ty of [place] 4.2.7.2.686 [facility] [id number] [address] 2020-01-03 2020-01-03 Emergency [facility] ERT [id number] Univers 12:08:00 12:08:00 ALMITA weir [facility] 2019-10-14 2019-10-14 [facility] [id number] 10:47:05 13:44:00 Almita S [place] 350.1.13.10 [place] 4.2.7.2.686 [facility] [id number] [facility] 2019-10-14 2019-10-14 Emergency [place] [facility] ERT [id number] Univers 10:47:05 13:44:00 ALMITA weir [facility] 2019-10-14 2019-10-14 [facility] [id number] Univers 10:47:05 13:44:00 Almita S [place] 350.1.13.10 i ty of [place] 4.2.7.2.686 [facility] [id number] [address] 2019-05-27 2019-05-27 [facility] [id number] 15:49:53 19:35:00 Almita S [place] 350.1.13.10 [place] 4.2.7.2.686 [facility] [id number] [facility] 2019-05-27 2019-05-27 [facility] [id number] [facility] 15:49:53 19:35:00 Almita [place] 350.1.13.10 i ty of [place] 4.2.7.2.686 [facility] [id number] [facility] 084 Branch 2019-05-27 2019-05-27 Orders Doctor BRANDON 1.2.840.114 [id number] 00:00:00 00:00:00 Only Unassigned, YANETH 350.1.13.10 [place] [facility] 4.2.7.2.686 [id number] 2019-05-27 2019-05-27 Orders Doctor BRANDON 1.2.840.114 [id number] Univers 00:00:00 00:00:00 Only Unassigned, YANETH 350.1.13.[address] [facility] 4.2.7.2.686 [facility] [id number] [address] Results Test Description Test Time Test Comments Results Result Comments Source POCT TEST 2021-03-08 04:55:00 Test Item Value Reference Range Interpretation Comme nts POCT PREG (test code = 1605) negative On board controls acceptable with C Line (test code = 3574) present POCT PREG LOT # (test code = 3575) [id number] POCT PREG TEST DATE (test code = 3576) Lab Interpretation (test code = 98034-1) Normal [facility] W [id number] 22:05:30CT Abdomen and Pelvis with intravenous contrast. CLINICAL HISTORY: Acute generalized Abdominal pain.DOSE: Up-to-date CT equipment and radiation dose reduction techniques wereemployed. CTDIvol: 25.76 mGy. DLP: 1271 mGy-cm. TECHNIQUE : Contiguous axial imaging from the level of the lung basesthrough the pubic symphysis were performed after the uncomplicatedadministration of Omnipaque contrast material. Coronal and sagittalreconstructions were obtained. Auto mA and/or iterative reconstruction wereusedto reduce radiation dose. FINDINGS: ? Lower lungs: [...] abdomen and joining left common iliac vein. Retrop eritoneum: No abnormal fluid or lymphadenopathy. Bowel: Mild diverticulosis of sigmoid colon. No acute changes. Normalappendix is visualized. Bladder and Reproductive Organs: Possible 11 mm fibroid in the lateralright subsidence location of the body of the uterus. Small cysts in bothovaries consistentwith physiologic changes. Urinary bladder is poorlydistended and unopacified. Bones: Degenerative disc disease at L3-L4 with vacuum phenomenon in thedisc material, prominent disc osteophyte complex encroaching into thespinal canal causing spinal stenosis. Soft tissues: Unremarkable. CONCLUSION: No acute intra- abdominal or pelvic abnormalities detected. [facility], Radiant Results Inft User - 05/17/2020 4:06 PM CSTCT Abdomen and Pelvis with intravenous contrast.CLINICAL HISTORY: Acute generalized Abdominalpain.DOSE: Up-to-date CT equipment and radiation dose reduction [...] 11x 5 cm. Biliary ducts and the pa ncreatic duct appear of normal size.Peritoneum: No free air or free fluid. No lymphadenopathy.Pancreas and Adrenals: Unremarkable pancreas and adrenal glands.Kidneys and Ureters: No visible calculi in the renal collecting systems. No hydroureter or hydronephrosis. Vessels: Developmental variation noted with left renal vein extending downinto the abdomen and joining left common iliac vein.Retroperitoneum: No abnormal fluid or lymphadenopathy.Bowel: Mild diverticulosis of sigmoid colon. No acute changes. Normalappendix is visualized.Bladder and Reproductive Organs: Possible 11 mm fibroid in the latera lright subsidence location of the body of the uterus. Small cysts in bothovaries consistent with physiologic changes. Urinary bladder is poorlydistended and unopacified.Bones: Degenerative disc diseaseat L3-L4 with vacuum phenomenon in thedisc material, prominent disc osteophyte complex encroaching into thespinal canal causing spinal stenosis.Soft tissues: Unremarkable.CONCLUSION: No acute intra-abdominal or pelvic abnormalities detected.[facility]. METABOLIC PANEL (06926)2020-05-17 21:35:00 Test Item Value Reference Range Interpretation Comments NA (test code = 136 mmol/L 135-145 0783275645) K (test code = 4.5 mmol/L 3.5-5 9761528098) CL (test code = 103 mmol/L 98-108 5140127100) CO2 TOTAL (test code = 27 mmol/L 23-31 4376992798) AGAP (test code = 2-16 3448751911) BUN (test code = 16 mg/dL 7-23 0807680442) GLUCOSE (test code = 95 mg/dL 70-110 9487323894) CREATININE (test code = 0.55 mg/dL 0.5-1.04 7221105924) TOTAL BILI (test code = 0.9 mg/dL 0.1-1.2 3375869283) CALCIUM (test code = 8.3 mg/dL 8.6-10.6 L 1074803935) T PROTEIN (test code = 7.8 g/dL 6.3-8.2 5742981394) ALBUMIN (test code = 4.1 g/dL 3.5-5 5669789282) ALK PHOS (test code = 75 U/L 34-122 4157595690) ALTv (test code = 15 U/L 5-35 1742-6) AST(SGOT) (test code = 32 U/L 13-40 9861364675) eGFR Calculation mL/min/1.73m2 (Non-) (test code = 1526683418) eGFR Calculation mL/min/1.73m2 () (test code = 6776844773) MARCO (test code = MARCO) Association of [...] tests). Lab Interpretation Abnormal (test code = 12964-3) [facility]2021-[facility]-13 21:34:00 Test Item Value Reference Range Interpretation Comments LIPASE (test code = 9923926123) 26 U/L 0-220 Lab Interpretation (test code = Normal 78240-9) [facility]2021-01-13 21:29:00 Test Item Value Reference Range Interpretation Comments APPEARANCE (test code = Hazy Clear A 4095295194) COLOR (test code = Yellow Yellow 6470549353) PH (test code = 4.8-8.0 1862469558) SP GRAVITY (test code = 1.003-1.030 8815606623) GLU U QUAL (test code = Normal Normal 6925528794) BLOOD (test code = 3+ Negative A 3379381872) KETONES (test code = Negative Negative 6599309940) PROTEIN (test code = 30 mg/dL Negative A 2887-8) UROBILIN (test code = Normal Normal 7101752854) BILIRUBIN (test code = Negative Negative 4145731464) NITRITE (test code = Negative Negative 4465537113) LEUK ROBERTO (test code = 250/uL Negative A 9049395276) RBC/HPF (test code = See_Comment H [Autom ated message] 6858877434) The system Youneeq generated this result transmitted ref erence range: 0 - 3 HP F. The reference range was not used to int erpret this result as normal/abnormal . WBC/HPF (test code = See_Comment H [Autom ated message] 3005622292) The system Youneeq generated this result transmitted ref erence range: 0 - 5 HP F. The reference range was not used to int erpret this result as normal/abnormal . BACTERIA (test code = Negative Negative 7880504516) MUCOUS (test code = Marked Negative LPF A 0026216542) SQ EPITH (test code = HPF 3468459530) Lab Interpretation (test Abnormal code = 48705-4) [facility], [id number] 21:21:00 Test Item Value Reference Range Interpretation Comments PREG SERUM (test code Negative = 8425066876) MARCO (test code = MARCO) Less than 10 IU/L. ?If low titer or ectopic is suspected, resubmit specimen in 48-72 hours. [facility]hamPO[facility] [id number] 20:57:00 Test Item Value Reference Range Interpretation Comments POCT PREG (test code = 1605) negative On board controls acceptable with present C Line (test code = 3574) POCT PREG LOT # (test code = 3575) [id number] POCT PREG TEST DATE (test 01/02/2022 code = 3576) Lab Interpretation (test code = Normal 44062-6) [facility] WITH [id number] 20:33:00 Test Item Value Reference Range Interpretation Comments WBC (test code = See_Comment [Automated 0590-2) message] The sy stem which generated this [...] RDW-SD (test code = 45.9 fL 39-49.9 09099-1) RDW-CV (test code = 15.3 % 12-15.5 788-0) PLT (test code = See_Comment H [Automated 777-3) message] The sy stem which generated this result transmitted reference range : 166 - 358 10*3/ ?L. The reference r rupesh was not used to interpret this result as normal/abnormal . MPV (test code = 9.9 fL 9.5-12.9 98608-7) NRBC/100 WBC (test See_Comment [Automat ed code = 1893448244) message] The system which generated this result transmitted reference range : 0.0 - 10.0 /100 WBCs. The refer ence range was not u sed to interpret th is result as normal/abnormal . NRBC x10^3 (test code <0.01 See_Comment [Auto mated = 4980070293) message] The s ystem which generated this result transmitted reference range : 10*3/?L. The reference range was not used to interpret this result as normal/abnormal . GRAN MAT (NEUT) % 66.2 % (test code = 770-8) IMM GRAN % (test code 0.30 % = 1620947977) LYMPH % (test code = 26.8 % 736-9) MONO % (test code = 4.6 % 5905-5) EOS % (test code = 1.4 % 713-8) BASO % (test code = 0.7 % 706-2) GRAN MAT x10^3(ANC) 5.88 10*3/uL 1.88-7.09 (test code = 4028621990) IMM GRAN x10^3 (test 0.03 10*3/uL 0-0.06 code = 1303076815) LYMPH x10^3 (test code 2.38 10*3/uL 1.32-3.29 = 731-0) MONO x10^3 (test code 0.41 10*3/uL 0.33-0.92 = 742-7) EOS x10^3 (test code = 0.12 10*3/uL 0.03-0.39 711-2) BASO x10^3 (test code 0.06 10*3/uL 0.01-0.07 = 704-7) Lab Interpretation Abnormal (test code = 98923-7) [facility] [id number] 05:17:00 Test Item Value Reference Range Interpretation Comments POCT PREG (test code = 1605) negative On board controls acceptable with present C Line (test code = 3574) POCT PREG LOT # (test code = 3575) [id number] POCT PREG TEST DATE (test 2021-09-01 code = 3576) Lab Interpretation (test code = Normal 14681-6) [facility] CHEST 1 [id number] 18:56:37 No acute cardiopulmonary abnormality. Preliminary Report [...] 01/03/2020 2:13 PM CDTEXAM: XR CHEST 1 VWHISTORY: headache, shortness of breath, chest pain COMPARISON: Chest x-ray dated 05/27/2019.FINDINGS:The lungs areclear without evidence of consolidation, pleural effusion orpneumothorax. The cardiomediastinal silhouette is normal. A left cervical rib is incidentally noted. No acute osseous abnormality isidentified.IMPRESSIONNo acute cardiopulmonary abnormality.Preliminary Report Dictated by Resident: Kvng Shell, Castro Corey MD., have reviewed this study and agree with the abovereport.[facility] HEAD WO [id number] 18:41:07 No acute intracranial hemorrhage or mass [...] base are unremarkable. [facility], Radiant Results Inft User - 01/03/2020 2:13 PM CDTCT HEAD WO CONTRASTHISTORY: 34-year-old female presents with acute hepatic and dizziness.COMPARISON: NoneTECHNIQUE: Axial CT of the head was performed and reconstructed at 5 mmintervals. Coronal and sagittal reformatted images were generated.FINDINGS:The ventricles and cerebral sulci are normal in caliber and configuration.No hydrocephalus, midline shift or pathologicalextra-axial fluidcollection is present. The basal cisterns are unremarkable.There is no acute intracranial hemorrhage or significant mass effect. Noparenchymal attenuation abnormality. The bobby-white matter differentiationis preserved. Partially empty sella.The mastoid air cells and paranasal air sinuses are clear. The calvariumand central skull base are unremarkable.IMPRESSIONNo acute intracranial hemorrhage or mass effect.Paras Hernandez MD., have reviewed this study and agree with theabove report.[facility] METABOLIC PANEL (NA, K, CL, CO2, GLUCOSE, BUN, CREATININE, CA)2020-01-03 18:30:00 Test Item Value Reference Range Interpretation Comments NA (test code = 137 mmol/L 135-145 7817316312) K (test code = 4.0 mmol/L 3.5-5 2645081947) CL (test code = 105 mmol/L 98-108 5548144417) CO2 TOTAL (test code = 28 mmol/L 23-31 3359497273) AGAP (test code = 2-16 7807802763) BUN (test code = 15 mg/dL 7-23 9391537816) GLUCOSE (test code = 89 mg/dL 70-110 6819381614) CREATININE (test code 0.52 mg/dL 0.5-1.04 = 9981664220) CALCIUM (test code = 8.6 mg/dL 8.6-10.6 3647247426) eGFR Calculation mL/min/1.73m2 (Non-) (test code = 5354103310) eGFR Calculation mL/min/1.73m2 () (test code = 1077327502) MARCO (test code = MARCO) Association of [...] or urine or abnormalities in imaging tests). [facility] WITH [id number] 18:27:00 Test Item Value Reference Range Interpretation [...] RDW-SD (test code = 49.1 fL 39-49.9 18350-4) RDW-CV (test code = 16.1 % 12-15.5 H 788-0) PLT (test code = See_Comment [Automated 777-3) message] The sy stem which generated this result transmitted reference range : 166 - 358 10*3/ ?L. The reference r rupesh was not used to interpret this result as normal/abnormal . MPV (test code = 10.1 fL 9.5-12.9 55141-2) NRBC/100 WBC (test See_Comment [Automat ed code = 7978986709) message] The system which generated this result transmitted reference range : 0.0 - 10.0 /100 WBCs. The refer ence range was not u sed to interpret th is result as normal/abnormal . NRBC x10^3 (test code <0.01 See_Comment [Auto mated = 1508173834) message] The s ystem which generated this result transmitted reference range : 10*3/?L. The reference range was not used to interpret this result as normal/abnormal . GRAN MAT (NEUT) % 65.7 % (test code = 770-8) IMM GRAN % (test code 0.50 % = 4034450493) LYMPH % (test code = 26.6 % 736-9) MONO % (test code = 4.9 % 5905-5) EOS % (test code = 1.9 % 713-8) BASO % (test code = 0.4 % 706-2) GRAN MAT x10^3(ANC) 6.23 10*3/uL 1.88-7.09 (test code = 9993978334) IMM GRAN x10^3 (test 0.05 10*3/uL 0-0.06 code = 2560299012) LYMPH x10^3 (test code 2.53 10*3/uL 1.32-3.29 = 731-0) MONO x10^3 (test code 0.47 10*3/uL 0.33-0.92 = 742-7) EOS x10^3 (test code = 0.18 10*3/uL 0.03-0.39 711-2) BASO x10^3 (test code 0.04 10*3/uL 0.01-0.07 = 704-7) Lab Interpretation Abnormal (test code = 56650-6) [facility]2020-08-31 18:22:00 Test Item Value Reference Range Interpretation Comments APPEARANCE (test code = Clear Clear 7215893494) COLOR (test code = Yellow Yellow 5772891033) PH (test code = 4.8-8.0 0102069451) SP GRAVITY (test code = 1.003-1.030 8495115359) GLU U QUAL (test code = Normal Normal 5023303222) BLOOD (test code = Negative Negative 9423748833) KETONES (test code = Negative Negative 6758605709) PROTEIN (test code = Negative Negative 2887-8) UROBILIN (test code = Normal Normal 3749071829) BILIRUBIN (test code = Negative Negative 7300772589) NITRITE (test code = Negative Negative 4330885600) LEUK ROBERTO (test code = Negative Negative 1714232465) RBC/HPF (test code = See_Comment H [Autom ated message] 0653408328) The system Youneeq generated this result transmitted ref erence range: 0 - 3 HP F. The reference range was not used to int erpret this result as normal/abnormal . WBC/HPF (test code = See_Comment [Autom ated message] 5584067800) The system Youneeq generated this result transmitted ref erence range: 0 - 5 HP F. The reference range was not used to int erpret this result as normal/abnormal . BACTERIA (test code = Few Negative A 3693660522) MUCOUS (test code = Slight Negative LPF A 4652739137) SQ EPITH (test code = HPF 1981733204) Lab Interpretation (test Abnormal code = 03699-1) [facility] [id number] 17:59:00 Test Item Value Reference Range Interpretation Comments POCT PREG (test code = 1605) negative On board controls acceptable with present C Line (test code = 3574) POCT PREG LOT # (test code = 3575) [id number] POCT PREG TEST DATE (test 12/02/2020 code = 3576) Lab Interpretation (test code = Normal 25900-0) [facility]2020-06-11 17:36:00 Test Item Value Reference Range Interpretation Comments APPEARANCE (test code = Hazy Clear A 9000232218) COLOR (test code = Yellow Yellow 3324729513) PH (test code = 4.8-8.0 3349942576) SP GRAVITY (test code = 1.003-1.030 4301435461) GLU U QUAL (test code = Normal Normal 0416583139) BLOOD (test code = Negative Negative 5970048335) KETONES (test code = Negative Negative 3453576691) PROTEIN (test code = Negative Negative 2887-8) UROBILIN (test code = Normal Normal 4194184361) BILIRUBIN (test code = Negative Negative 5001912682) NITRITE (test code = Negative Negative 4282668427) LEUK ROBERTO (test code = 25/uL Negative A 4060029509) RBC/HPF (test code = See_Comment [Autom ated message] 4381820897) The system Youneeq generated this result transmitted ref erence range: 0 - 3 HP F. The reference range was not used to int erpret this result as normal/abnormal . WBC/HPF (test code = See_Comment [Autom ated message] 4182955369) The system Youneeq generated this result transmitted ref erence range: 0 - 5 HP F. The reference range was not used to int erpret this result as normal/abnormal . BACTERIA (test code = Few Negative A 7579339150) MUCOUS (test code = Marked Negative LPF A 9921297263) SQ EPITH (test code = HPF 5181733439) Lab Interpretation (test Abnormal code = 96144-0) [facility] 1 VW [id number] 16:54:27 1. Minimal congestion in the lungs, nonspecific and likely secondary toviral infection/bronchitis.2. No pneumonia. Disclaimer: Generally, the findings on chest imaging in COVID-19 are notspecific, andoverlap with other infections, including influenza, H1N1,SARS and MERS.According to the Centers for Disease Control (CDC) and the [employer], viral testing remains the only specific method of diagnosiseven if CXR or CT findings are suggestive of COVID-19. PROCEDURE: CHEST XRAY, portable AP erect. CLINICAL INDICATION: sob COMPARISON: None FINDINGS: Lungs: Minimal congestion near the shmuel and in the lower lungs. Pleura: No pleural effusion or pneumothorax is seen. The heart is normalinsize. No acute bony abnormality. [facility], Radiant Results Inft User - 10/14/2019 11:55 [...] Centers for Disease Control (CDC) and the [employer], viral testing remains the only specific method of diagnosiseven if CXR or CT findings are suggestive of COVID-19.[facility] BrenhamTROPOANKURN [id number] 16:54:00 Test Item Value Reference Range Interpretation Comments TROPONIN I (test <0.012 See_Comment [Automated code = 8196270344) message] The system which generated this result [...] ? Lab Interpretation Normal (test code = 94265-3) [facility]OVID[facility] (ID NOW RAPID TESTING)2019-10-14 16:51:00 Test Item Value Reference Range Interpretation Comments SARS-CoV-2 Rapid ID NOW Not Detected Not Detected (test code = 81948-3) MARCO (test code = MARCO) ID NOW COVID-19 Assay is an isothermal nucleic acid amplification test intended for the qualitative detection of nucleic acid from SARS-CoV-2 viral RNA in nasopharyngeal ([employer]) specimens. It is used under Emergency Use [...] indicated. Lab Interpretation Normal (test code = 31027-7) [facility]ama[facility]TT2020[facility]11 16:44:00 Test Item Value Reference Range Interpretation Comments APTT Patient (test See_Comment [Automat ed code = 3173-2) message] The system which generated this result transmitted reference range : 23 - 38 Seconds . The reference range was not used to interpr et this result as normal/abnormal . MARCO (test code = MARCO) The [facility] patient population mean normal value for aPTT is 30 seconds. Lab Interpretation Normal (test code = 20190-1) [facility]hamCOMP. METABOLIC PANEL (68883)2019-10-14 16:43:00 Test Item Value Reference Range Interpretation Comments NA (test code = 137 mmol/L 135-145 0639685044) K (test code = 4.1 mmol/L 3.5-5 4912111721) CL (test code = 107 mmol/L 98-108 9869257995) CO2 TOTAL (test code = 26 mmol/L 23-31 8453215068) AGAP (test code = 2-16 7747317187) BUN (test code = 18 mg/dL 7-23 8394506983) GLUCOSE (test code = 97 mg/dL 70-110 4802069315) CREATININE (test code 0.55 mg/dL 0.5-1.04 = 7756777162) TOTAL BILI (test code 0.3 mg/dL 0.1-1.1 = 5434845164) CALCIUM (test code = 9.0 mg/dL 8.6-10.6 4926483272) T PROTEIN (test code = 7.7 g/dL 6.3-8.2 1371389812) ALBUMIN (test code = 4.1 g/dL 3.5-5 4194272325) ALK PHOS (test code = 89 U/L 34-122 0205556810) ALTv (test code = 14 U/L 5-35 1742-6) AST(SGOT) (test code = 22 U/L 13-40 8313772803) eGFR Calculation mL/min/1.73m2 (Non-) (test code = 7626707951) eGFR Calculation mL/min/1.73m2 () (test code = 2550456529) MARCO (test code = MARCO) Association of [...] or urine or abnormalities in imaging tests). [facility]hamLIP[facility], [id number] 16:43:00 Test Item Value Reference Range Interpretation Comments LIPASE (test code = 6308084985) 48 U/L 0-220 Lab Interpretation (test code = Normal 75496-4) [facility]hamPROTHROMBIN TIME / [id number] 16:42:00 Test Item Value Reference Range Interpretation Comments PROTIME PATIENT (test See_Comment [Auto mated message] code = 5964-2) The system wh ich generated this result transmitted ref erence range: 12.0 - 1 4.7 Seconds. The re ference range was not u sed to interpret this result as normal/abnor mal. INR (test code = 6301-6) Nor mal INR <1.1; Warfarin Therap eutic range 2.0 to 3. 0 or 2.5 to 3.5, dep ending upon the indica tions. Lab Interpretation (test Normal code = 11131-4) [facility] WITH [id number] 16:29:00 Test Item Value Reference Range Interpretation [...] RDW-SD (test code = 49.1 fL 39-49.9 95946-0) RDW-CV (test code = 16.0 % 12-15.5 H 788-0) PLT (test code = See_Comment [Automated 777-3) message] The sy stem which generated this result transmitted reference range : 166 - 358 10*3/ ?L. The reference r rupesh was not used to interpret this result as normal/abnormal . MPV (test code = 10.0 fL 9.5-12.9 14359-7) NRBC/100 WBC (test See_Comment [Automat ed code = 7696955439) message] The system which generated this result transmitted reference range : 0.0 - 10.0 /100 WBCs. The refer ence range was not u sed to interpret th is result as normal/abnormal . NRBC x10^3 (test code <0.01 See_Comment [Auto mated = 3213471889) message] The s ystem which generated this result transmitted reference range : 10*3/?L. The reference range was not used to interpret this result as normal/abnormal . GRAN MAT (NEUT) % 67.4 % (test code = 770-8) IMM GRAN % (test code 0.40 % = 2190505688) LYMPH % (test code = 24.7 % 736-9) MONO % (test code = 4.4 % 5905-5) EOS % (test code = 2.7 % 713-8) BASO % (test code = 0.4 % 706-2) GRAN MAT x10^3(ANC) 6.53 10*3/uL 1.88-7.09 (test code = 6602056836) IMM GRAN x10^3 (test 0.04 10*3/uL 0-0.06 code = 5964851709) LYMPH x10^3 (test code 2.40 10*3/uL 1.32-3.29 = 731-0) MONO x10^3 (test code 0.43 10*3/uL 0.33-0.92 = 742-7) EOS x10^3 (test code = 0.26 10*3/uL 0.03-0.39 711-2) BASO x10^3 (test code 0.04 10*3/uL 0.01-0.07 = 704-7) Lab Interpretation Abnormal (test code = 49397-4) [facility]ham[facility] CHEST PULMONARY [id number] 00:50:34No pulmonary embolus.2. No thoracic aortic aneurysm or dissection.3. No infiltrates effusions or edema. RL: 6200 END OF REPORT Ordering Physician:ALMITA VARGAS Clinical Indication: PE suspected, intermediate prob, positive D-dimer Additional Clini norberto Information: Comparison: None Technique: The exam is [...] ALMITA Godinezinical Indication: PE suspected, intermediate prob, positiveD-dimer Additional Clinical Information:Comparison: NoneTechnique: The exam is performed with axial postcontrast images with 3-DMIPS reconstruction. The exam was performed using the ALARA principles. Interpretation based on extrapolated NASCET criteria.Findings: The thoracic aorta is normal in diameter. There are no pulmonaryemboli The heart size is normal. No pericardial effusion. The upper liverspleen enhances normally.Lung windows show no infiltrates or effusions.IMPRESSIONNo pulmonary embolus.2.No thoracic aortic aneurysm or dissection.3. No infiltrates effusions or edema.RL: 6200END OF REPORTE lectronically signed by Naif Cantrell at 05/27/2019 6:50 PMUnMemorial Herm[facility] [id number]-[id number] 23:38:00 Test Item Value Reference Interpretation Comments Range D-DIMER (test code = See_Comment H [Autom ated 4415871603) message] The system which generated this result [...] diagnosis. Lab Interpretation Abnormal (test code = 64660-5) [facility]hamTROPONIN [id number] 23:30:00 Test Item Value Reference Range Interpretation Comments TROPONIN I (test <0.012 See_Comment [Automated code = 9609250081) message] The system which generated this result [...] ? Lab Interpretation Normal (test code = 38543-2) [facility]hamBASIC METABOLIC PANEL (NA, K, CL, CO2, GLUCOSE, BUN, CREATININE, CA)2019-05-27 23:19:00 Test Item Value Reference Range Interpretation Comments NA (test code = 139 mmol/L 135-145 9698292772) K (test code = 3.7 mmol/L 3.5-5 4123008564) CL (test code = 103 mmol/L 98-108 3802236227) CO2 TOTAL (test code = 28 mmol/L 23-31 4917123457) AGAP (test code = 2-16 2394285728) BUN (test code = 12 mg/dL 7-23 0980622503) GLUCOSE (test code = 90 mg/dL 70-110 5231592885) CREATININE (test code 0.60 mg/dL 0.5-1.04 = 4266780103) CALCIUM (test code = 8.8 mg/dL 8.6-10.6 2361046088) eGFR Calculation mL/min/1.73m2 (Non-) (test code = 1399012664) eGFR Calculation mL/min/1.73m2 () (test code = 1974547906) MARCO (test code = MARCO) Association of [...] or urine or abnormalities in imaging tests). [facility] WITH [id number] 23:07:00 Test Item Value Reference Range Interpretation Comments WBC (test code = See_Comment H [Automated 6690-2) message] The sy stem which [...] RDW-SD (test code = 49.0 fL 39-49.9 91494-1) RDW-CV (test code = 15.9 % 12-15.5 H 788-0) PLT (test code = See_Comment H [Automated 777-3) message] The sy stem which generated this result transmitted reference range : 166 - 358 10*3/ ?L. The reference r rupesh was not used to interpret this result as normal/abnormal . MPV (test code = 10.2 fL 9.5-12.9 77402-3) NRBC/100 WBC (test See_Comment [Automat ed code = 0578466508) message] The system which generated this result transmitted reference range : 0.0 - 10.0 /100 WBCs. The refer ence range was not u sed to interpret th is result as normal/abnormal . NRBC x10^3 (test code <0.01 See_Comment [Auto mated = 0951103243) message] The s ystem which generated this result transmitted reference range : 10*3/?L. The reference range was not used to interpret this result as normal/abnormal . GRAN MAT (NEUT) % 68.7 % (test code = 770-8) IMM GRAN % (test code 0.50 % = 2264566686) LYMPH % (test code = 24.5 % 736-9) MONO % (test code = 4.1 % 5905-5) EOS % (test code = 1.9 % 713-8) BASO % (test code = 0.3 % 706-2) GRAN MAT x10^3(ANC) 8.30 10*3/uL 1.88-7.09 H (test code = 9613554729) IMM GRAN x10^3 (test 0.06 10*3/uL 0-0.06 code = 7573129196) LYMPH x10^3 (test code 2.97 10*3/uL 1.32-3.29 = 731-0) MONO x10^3 (test code 0.50 10*3/uL 0.33-0.92 = 742-7) EOS x10^3 (test code = 0.23 10*3/uL 0.03-0.39 711-2) BASO x10^3 (test code 0.04 10*3/uL 0.01-0.07 = 704-7) Lab Interpretation Abnormal (test code = 59035-2) [facility]hamXR CHEST 1 [id number] 22:58:55HISTORY: SOB. TECHNIQUE: Portable AP erect view of the chest is obtained. Comparison madewith 02/18/2016 study. FINDINGS: No acute pneumonia. No pneumothorax or pleural effusion orpulmonary congestion detected. Cardiac size is within normal limits. [place] of prominent left cervical rib. CONCLUSIONS:No signs of acute cardiopulmonary disease.[facility], Radiant Results Inft User - 05/27/2019 5:00 PM CSTHISTORY: SOB.TECHNIQUE: Portable AP erect view of the chest is obtained. Comparison madewith 02/18/2016study.FINDINGS: No acute pneumonia. No pneumothorax or pleural effusion orpulmonary congestion detected. Cardiac size is within normal limits. [place] of prominent left cervical rib.CONCLUSIONS: No signs of acute cardiopulmonary disease.[facility]hamPOCT [id number] 22:43:00 Test Item Value Reference Range Interpretation Comments POCT PREG (test code = 1605) Negative On board controls acceptable with yes C Line (test code = 3574) POCT PREG LOT # (test code = 3575) [id number] POCT PREG TEST DATE (test 12-02-20 code = 3576) Lab Interpretation (test code = Normal 04098-0) [facility]
[2021-12-20 10:43] LABS: Urine Blood Trace-intact (Negative); Urine Glucose Negative (Negative); Urine Protein Negative (Negative); Urine Specific Gravity 1.025 (1.005-1.030); Urine pH 6.5 (5.0-7.0)
[2021-12-20 11:00] LABS: Absolute Lymphocytes (CBC) 2.4 K/uL (0.7-4.9); Hematocrit 36.6 % (36.0-45.0); Lymphocytes % 26.4 % (15.3-44.8); MCV 80.8 fL (80-100); MPV 7.7 fL (7.6-11.3); RBC Red Blood Cell Count 4.53 M/uL (3.86-4.86)
[2021-12-20 11:01] LABS: Urine Specific Gravity/Preg 1.025 (1.005-1.030)
[2021-12-20 11:11] LABS: Urine Bacteria <20 /HPF (<20); Urine RBC <5 /HPF (None Seen)
[2021-12-20] MEDS ORDERED: NA CHLORIDE 0.9% 1,000 ML ONE (11:15)
[2021-12-20] MEDS ORDERED: KETOROLAC 30 MG/ML INJ ONE (11:15)
[2021-12-20 11:16] LABS: Albumin 3.2 g/dL (3.4-5.0); Bilirubin Total 0.5 mg/dL (0.2-1.0); Potassium 4.1 mmol/L (3.5-5.1); Protein, Total 7.6 g/dL (6.4-8.2)
--- NOTE | 2021-12-20 11:43 | RAD REPORT ---
EXAM DESCRIPTION: CTAbdomen Pelvis W Contrast - 12/20/2021 11:28 am CLINICAL HISTORY: r/o pyelo COMPARISON: No comparisons TECHNIQUE: CT of the abdomen and pelvis was performed with contrast. The patient's body habitus and resultant increased notrg-ye-mtze and underpenetration does limit some of the finer detail. All CT scans are performed using dose optimization technique as appropriate and may include automated exposure control or mA/KV adjustment according to patient size. FINDINGS: Lower chest: No acute abnormality. Liver: Hepatic steatosis Biliary: No biliary ductal dilatation. Stomach: No significant focal abnormality. Duodenum: No significant focal abnormality. Pancreas: No significant abnormality. Spleen: No significant abnormality. Adrenal: No suspicious lesions. Kidney/ureter: No hydronephrosis. No renal calculi. Retroperitoneum: No retroperitoneal adenopathy. Vascular: No aneurysm. Bowel: No significant focal abnormality. Normal appendix. Peritoneum: No ascites or free air. Bladder: Grossly unremarkable. Reproductive: No adnexal masses. Bones: No acute fracture. Multilevel degenerative changes are present in the spine. Other: n/a IMPRESSION: No acute intra-abdominal or pelvic finding. Normal appendix. No urinary tract calculi ap preciated. No hydronephrosis or findings to suggest renal abscess. Tiny stones could be obscured due to body habitus and resulting in image degradation
--- NOTE | 2021-12-20 12:17 | EDPHYS ---
Physician Documentation [facility] Name: Lorelei Bolaños Age: 36 yrs Sex: Female : 1985 Arrival Date: 12/20/2021 Time: 10:01 Bed 5 Private MD: ED Physician Charles Scales HPI: 12/20 10:22 This 36 yrs old Female presents to ER via Ambulatory with complaints of Flank jh7 Pain. 10:22 The patient complains of pain in the right low back. The pain does not radiate. Onset: jh7 The symptoms/episode began/occurred 4 day(s) ago. Associated signs and symptoms: Pertinent positives: dysuria, Pertinent negatives: fever, hematuria, nausea, vomiting. 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 - Social history:: Smoking status: Reported history of juuling and/or vaping. Patient uses alcohol, occasionally. ROS: 10:22 Constitutional: Negative for fever, chills, and weight loss, Eyes: Negative for injury, jh7 pain, redness, and discharge, Cardiovascular: Negative for chest pain, palpitations, and edema, Respiratory: Negative for shortness of breath, cough, wheezing, and pleuritic chest pain, Abdomen/GI: Negative for abdominal pain, nausea, vomiting, diarrhea, and constipation. 10:22 Skin: Negative for injury, rash, and discoloration, Neuro: Negative for headache, weakness, numbness, tingling, and seizure. 10:22 Back: Positive for flank pain, on the right. 10:22 : Positive for urinary symptoms, flank pain, burning with urination, Negative for vaginal discharge. 10:22 All other systems are negative. Exam: 10:22 Constitutional: This is a well developed, well nourished patient who is awake, alert, jh7 and in no acute distress. Eyes: Pupils equal round and reactive to light, extra-ocular motions intact. Lids and lashes normal. Conjunctiva and sclera are non-icteric and not injected. Cornea within normal limits. Periorbital areas with no swelling, redness, or edema. Neck: Trachea midline, no thyromegaly or masses palpated, and no cervical lymphadenopathy. Supple, full range of motion without nuchal rigidity, or vertebral point tenderness. No Meningismus. Cardiovascular: Regular rate and rhythm with a normal S1 and S2. No gallops, murmurs, or rubs. Normal PMI, no JVD. No pulse deficits. Respiratory: Lungs have equal breath sounds bilaterally, clear to auscultation and percussion. No rales, rhonchi or wheezes noted. No increased work of breathing, no retractions or nasal flaring. Abdomen/GI: Soft, non-tender, with normal bowel sounds. No distension or tympany. No guarding or rebound. No evidence of tenderness throughout. Skin: Warm, dry with normal turgor. Normal color with no rashes, no lesions, and no evidence of cellulitis. MS/ Extremity: Pulses equal, no cyanosis. Neurovascular intact. Full, normal range of motion. Neuro: Awake and alert, GCS 15, oriented to person, place, time, and situation. Normal gait. 10:22 Back: CVA tenderness, that is moderate, is noted on the right. 10:22 : CVA tenderness, that is moderate. Vital Signs: 10:19 BP 124 / 82; Pulse 80; Resp 18; Temp 97.5; Pulse Ox 99% ; Weight 139.71 kg; Height 4 ap3 ft. 11 in. (149.86 cm); 12:37 BP 130 / 80; Pulse 78; Resp 18; Pulse Ox 100% ; Pain 0/10; kb3 10:19 Body Mass Index 62.21 (139.71 kg, 149.86 cm) ap3 MDM: 10:31 Patient medically screened. [facility] 12:35 Differential diagnosis: nephrolithiasis, pyelonephritis, UTI, STI. Data reviewed: vital [facility] signs, nurses notes, lab test result(s), radiologic studies, CT scan. Data interpreted: Pulse oximetry: is 100 %. Interpretation: normal. Counseling: I had a detailed discussion with the patient and/or guardian regarding: the historical points, exam findings, and any diagnostic results supporting the discharge/admit diagnosis, to return to the emergency department if symptoms worsen or persist or if there are any questions or concerns that arise at home. ED course: Upon entering the patient's room to discuss her lab results, she was tearful and explained that the health department just called and stated that she tested positive for an STI. They did not tell her which 1 specifically, but stated that it was one that is treatable. Agreed to treat the patient for gonorrhea, chlamydia, and trichomonas. The patient understood the plan of care.. ED course: The patient remained stable throughout the ER visit. She denied any pelvic pain, and there was no abdominal tenderness noted upon palpation. Explained to her that if her symptoms persisted, worsened, or any new concerning symptoms developed, she should return to the ER for further eval.. 12/20 10:22 Order name: CBC with Diff; Complete Time: 11:29 [facility] 12/20 10:22 Order name: CMP; Complete Time: 11: [facility] 12/20 10:22 Order name: Lipase; Complete Time: 11:29 [facility] 12/20 10:22 Order name: Urine Microscopic Only; Complete Time: 11: [facility] 12/20 10:43 Order name: Urine Dipstick-Ancillary; Complete Time: 11:29 [facility] 12/20 10:46 Order name: Urine --Ancillary (enter results); Complete Time: 11:29 12/20 10:22 Order name: CT Abd/Pelvis - IV Contrast Only; Complete Time: 11:53 [facility] 12/20 10:22 Order name: IV Saline Lock; Complete Time: 10:30 [facility] 12/20 10:22 Order name: Labs collected and sent; Complete Time: 10:30 [facility] 12/20 10:22 Order name: Urine Dipstick-Ancillary (obtain specimen); Complete Time: 11: [facility] 12/20 10:22 Order name: Urine Test (obtain specimen); Complete Time: 11:04 [facility] Administered Medications: 10:45 Drug: NS 0.9% 1000 ml Route: IV; Rate: 1 bolus; Site: right antecubital; bp 12:30 Follow up: IV Status: Completed infusion; IV Intake: 500ml kb3 10:45 Drug: Ketorolac 30 mg Route: IVP; Site: right antecubital; bp 12:19 Not Given (Physician Discretion): AZITHromycin 1 grams PO once [facility] 12:30 Drug: Rocephin (cefTRIAXone) 500 mg Route: IM; Site: left ventrogluteal; kb3 12:35 Follow up: Response: No adverse reaction; Medication administered at discharge. kb3 Disposition Summary: 12/20/21 12:16 Discharge Ordered Location: Home [facility] Problem: new [facility] Symptoms: are unchanged [facility] Condition: Stable [facility] Diagnosis - Unspecified sexually transmitted disease [facility] Followup: [facility] - With: Private Physician - When: 2 - 3 days - Reason: Recheck today's complaints Discharge Instructions: - Discharge Summary Sheet [facility] - Preventing Sexually Transmitted Infections, Adult [facility] Forms: - Medication Reconciliation Form [facility] - Thank You Letter [facility] - Antibiotic Education [facility] Prescriptions: - Flagyl 500 mg Oral Tablet - take 1 tablet by ORAL route every 12 hours for 7 days; 14 tablet; Refills: 0, [facility] Product Selection Permitted - Doxycycline Hyclate 100 mg Oral Tablet - take 1 tablet by ORAL route every 12 hours; 14 tablet; Refills: 0, Product [facility] Selection Permitted Signatures: Dispatcher [employer] Kartik Curry, RN RN Cristina Lin RN RN ap3 Monika Olmstead, DIRECTOR OF PARKS AND RECREATION DIRECTOR OF PARKS AND RECREATION 7 Argenis Stringer, RN RN kb3
--- NOTE | 2021-12-20 12:17 | ER ---
Nurse's Notes [facility] Name: Lorelei Bolaños Age: 36 yrs Sex: Female : 1985 Arrival Date: 12/20/2021 Time: 10:01 Bed 5 Private MD: Diagnosis: Unspecified sexually transmitted disease Presentation: 12/20 10:19 Chief complaint: Patient states: she has been having right sided flank pain and burning ap3 with urination for approx 3-4 days now. Patient denies N/V or fever. Coronavirus screen: At this time, the client does not indicate any symptoms associated with coronavirus-19. Ebola Screen: No symptoms or risks identified at this time. Initial Sepsis Screen: Does the patient meet any 2 criteria? No. Patient's initial sepsis screen is negative. Does the patient have a suspected source of infection? No. Patient's initial sepsis screen is negative. Risk Assessment: Do you want to hurt yourself or someone else? Patient reports no desire to harm self or others. Onset of symptoms was December 16, 2021. 10:19 Method Of Arrival: Ambulatory ap3 10:19 Acuity: DUTCH 3 ap3 Triage Assessment: 10:21 General: Appears in no apparent distress. Behavior is calm, cooperative, appropriate ap3 for age. Pain: Complains of pain in right low back Pain began 2-3 days ago. Neuro: Level of Consciousness is awake, alert, obeys commands, Oriented to person, place, time, situation, Gait is steady, Speech is normal. Cardiovascular: Patient's skin is warm and dry. Respiratory: Airway is patent Respiratory effort is even, unlabored, Respiratory pattern is regular, symmetrical. : Reports pain in right flank(s), with urination, urgency, urinary frequency. 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 - Social history:: Smoking status: Reported history of juuling and/or vaping. Patient uses alcohol, occasionally. Screenin:22 Abuse screen: Denies threats or abuse. Nutritional screening: No deficits noted. ap3 Tuberculosis screening: No symptoms or risk factors identified. 10:30 Fall Risk None identified. bp Assessment: 10:30 General: SEE TRIAGE NOTE. bp Vital Signs: 10:19 BP 124 / 82; Pulse 80; Resp 18; Temp 97.5; Pulse Ox 99% ; Weight 139.71 kg; Height 4 ap3 ft. 11 in. (149.86 cm); 12:37 BP 130 / 80; Pulse 78; Resp 18; Pulse Ox 100% ; Pain 0/10; kb3 10:19 Body Mass Index 62.21 (139.71 kg, 149.86 cm) ap3 ED Course: 10:01 Patient arrived in ED. rg4 10:08 Monika Olmstead FNP is PHCP. jh7 10:08 Charles Scales MD is Attending Physician. jh7 10:20 Triage completed. ap3 10:22 Arm band placed on left wrist. ap3 10:26 Kartik Haas, JENN is Primary Nurse. bp 10:30 Patient has correct armband on for positive identification. Bed in low position. Call bp light in reach. Side rails up X2. 10:30 Lab(s) recollected, by ED staff, sent to lab. Inserted saline lock:. kj1 10:30 Inserted saline lock: 20 gauge in right antecubital area, using aseptic technique. kj1 Blood collected. 11:30 CT Abd/Pelvis - IV Contrast Only In Process Unspecified. EDMS 12:36 No provider procedures requiring assistance completed. IV discontinued, intact, kb3 bleeding controlled, No redness/swelling at site. Administered Medications: 10:45 Drug: NS 0.9% 1000 ml Route: IV; Rate: 1 bolus; Site: right antecubital; bp 12:30 Follow up: IV Status: Completed infusion; IV Intake: 500ml kb3 10:45 Drug: Ketorolac 30 mg Route: IVP; Site: right antecubital; bp 12:19 Not Given (Physician Discretion): AZITHromycin 1 grams PO once jh7 12:30 Drug: Rocephin (cefTRIAXone) 500 mg Route: IM; Site: left ventrogluteal; kb3 12:35 Follow up: Response: No adverse reaction; Medication administered at discharge. kb3 Medication: 10:30 VIS not applicable for this client. bp Intake: 12:30 IV: 500ml; Total: 500ml. kb3 Outcome: 12:16 Discharge ordered by . steve 12:36 Discharged to home ambulatory. kb3 12:36 Condition: stable 12:36 Discharge instructions given to patient, Instructed on discharge instructions, follow up and referral plans. medication usage, safe sex practices, Demonstrated understanding of instructions, follow-up care, medications. 12:38 Patient left the ED. kb3 Signatures: Dispatcher [employer] EDCece Patel rg4 Kartik Haas, RN RN Cristina Lin RN RN hung3 Laure Mcmillan kj1 Monika Olmstead, PRINT COLOR MATCHER PRINT COLOR MATCHER jh7 Argenis Stringer, RN RN kb3
[2021-12-20] MEDS ORDERED: LIDOCAINE 1% MPF 2 ML AMPULE ONE (12:31)
[2021-12-20] MEDS ORDERED: CEFTRIAXONE 1000 MG/VIAL ONE (12:31)
[2021-12-20] MEDS ORDERED: AZITHROMYCIN 250 MG TAB ONE (12:31)
[2021-12-20 13:11] VITALS: TEMP 97.5
[2021-12-20 13:13] VITALS: BP 130/80; O2SAT 100
== END 2021-12-20 12:38 | disposition home or self-care (01) ==
LOC: ER 09:59
DX: A64 Unspecified sexually transmitted disease (principal); I10 Essential (primary) hypertension
CPT/HCPCS: 36415; 74177; 80053; 81003; 81015; 81025; 83690; 85025; 96361; 96372; 96374; 99284; J7030; Q9967

== ENCOUNTER 2022-01-24 16:29 | Emergency (ER) | payer OTHER, SELFPAY ==
--- OUTSIDE RECORDS SUMMARY | 2022-01-24 16:33 | XMS REPORT | Continuity of Care Document ---
:1985 Author Organization [facility] t Address [address] [place] [address] Care Team Providers Name Role Phone PCP, PATIENT DOES NOT HAVE A Primary Care Physician UnavailBHAVIN Soria Attending Clinician Unavailable Bhavin Pichardo MD Attending Clinician JULIO CÉSAR COLEMAN Attending Clinician Unavailable Julio César Pang Attending Clinician ALMITA VARGAS Attending Clinician Unavailable Almita Renteria S Attending Clinician RUBY PERRY Attending Clinician Unavailable Ruby Zambrano Attending Clinician Doctor Unassigned, [place] Attending Clinician Unavailable JULIO CÉSAR COLEMAN Admitting Clinician Unavailable RUBY PERRY Admitting Clinician Unavailable BHAVIN PICHARDO Admitting Clinician Unavailable Payers Payer Name Policy Type Policy Number Effective Date Expiration Date S charles MEDICAID PENDING PENDING 2021 00:00:00 [facility] [place] [id number] 2021 WOMEN 00:00:00 Problems Condition Condition Condition [...] Date Date Clinician NO KNOWN Drug Active [facility] ALLERGIE Class ity of S [facility] Social History Social Habit Start Date Stop Date Quantity Comments Source History of Cigarette Smoker Universi ty of tobacco use [facility] Exposure to Not sure [place] of SARS-CoV-2 [facility] (event) [facility] Alcohol intake 2021-05-09 2021-05-09 0 /d University of 00:00:00 00:00:00 [facility] Tobacco use and 2016-02-18 2016-02-18 Never used Universit y of exposure 00:00:00 00:00:00 [facility] Sex Ass[birth year] Universit y of 00:00:00 00:00:00 [facility] Smoking Status Start Date Stop Date Source Light tobacco smoker 2016-02-18 00:00:00 [facility] ity of [facility] Medications Ordered Filled Start Stop Current Ordering Indication Dosage Frequency Signature Comments Components Source Medication Medication Date Date Medication? Clinician (SIG) Name Name benzonatate Yes [id number] 100mg Take 1 Univers 100 mg 3-09 capsule by ity of capsule 00:00: mouth 3 [place] 00 (three) Medical times [facility] daily as needed for Cough. azithromyci Yes [id number] 250mg Take 1 Univers n 3-09 tablet by ity of (ZITHROMAX 00:00: mouth [place] Z-SUSAN) 250 00 daily. Medical mg tablet Take 500 Branch mg day 1, then 250 mg days 2 to 5. montelukast Yes [id number] 10mg Take 1 Univers 10 mg 3-09 tablet by ity of tablet 00:00: mouth [place] 00 every 24 Medical (twenty-fo Branch ur) hours as needed (symptoms) . loratadine- 0 Yes [id number] 1{tbl} Take 1 Univers pseudoephed 3-09 tablet by ity of rine 00:00: mouth (CLARITIN-D 00 daily. Medica l 24 HOUR) Branch 10-240 mg per 24 hr tablet albuterol 0 Yes [id number] 2{puff} Inhale 2 Univers 90 1-05 Puffs ity of mcg/actuati 00:00: every 4 [place] as on inhaler 00 (four) Medical hours as Branch needed for Wheezing or Shortness of Breath. benzonatate Yes [id number] 100mg Take 1 Univers 100 mg 1-05 capsule by ity of capsule 00:00: mouth (three) Medical times Branch daily as needed for Cough. bromphenira 0 Yes [id number] 5mL Take 5 mL Univers mine-pseudo 1-05 by mouth 4 it y of ephedrine-D 00:00: ([place] (BROMFED 00 times Medical DM) 2-30-10 daily as Bran ch mg/5 mL needed for syrup Cough. albuterol Yes [id number] 2{puff} Inhale 2 Univers 90 1-05 Puffs ity of mcg/actuati 00:00: every 4 [place] as on inhaler 00 (four) Medical hours as Branch needed for Wheezing or Shortness of Breath. benzonatate 0 Yes [id number] 100mg Take 1 Univers 100 mg 1-05 capsule by ity of capsule 00:00: mouth (three) Medical times Branch daily as needed for Cough. bromphenira 0 Yes [id number] 5mL Take 5 mL Univers mine-pseudo 1-05 [...] for Other (muscle spasm). predniSONE 2020-05- No [id number] 40mg Take 2 U nivers 20 mg [...] ity o f (PF)) 21:00: 22:32 [place], [place] injection 00 :00 ONCE, 1 Medical 50 mcg dose, Wed Branch 05/17/20 at 1500, Routine ibuprofen Yes [id number] 600mg Take 1 Univers 600 mg 1-13 100 tablet by ity of tablet 00:00: mouth [place] 00 every 6 Medical (six) Branch hours as needed for Pain (scale 4-6). ibuprofen Yes [id number] 600mg Take 1 Univers 600 mg 1-13 100 tablet by ity of tablet 00:00: mouth [place] 00 every 6 Medical (six) Branch hours as needed for Pain (scale 4-6). ibuprofen Yes [id number] 600mg Take 1 Univers 600 mg 1-13 100 tablet by ity of tablet 00:00: mouth [place] 00 every 6 Medical (six) Branch hours as needed for Pain (scale 4-6). ibuprofen 0 Yes [id number] 600mg Take 1 Univers 600 mg 1-13 100 tablet by ity of tablet 00:00: mouth [place] 00 every 6 Medical (six) Branch hours as needed for Pain (scale 4-6). ibuprofen Yes [id number] 600mg Take 1 Univers 600 mg 1-13 [...] tablet at 0015, CARLINE penicillin 2019-05- No [id number] 500mg Take 1 Univers v potassium 06-24 [...] :00 Infusion, Medical ONCE, 1 Branch dose, [facility] 01/03/20 at 1530, STAT ketorolac 2019- No 30mg 30 mg, Unive rs (TORADOL) 01-02 Slow IV ity of injection 20:30: 19:50 [place], [place] 30 mg 00 :00 ONCE, 1 Medical dose, [facility] 01/03/20 at 1530, CARLINE
Fa culty member [...] dose, Lety Medica l mL) 05/27/19 at [facility] injection 1845, 120 mL Routine acetaminoph 2015-05 [...] Immunizations Ordered Filled Immunization Date Status Comments [facility] e Immunization Name Name Influenza Virus 2016-02-19 Completed Universit y of Vaccine Quad IM 3+ 00:00:00 [facility] Influenza Virus 2016-02-19 Completed Universit y of Vaccine Quad IM 3+ 00:00:00 [facility] Influenza Virus 2016-02-19 Completed Universit y of Vaccine Quad IM 3+ 00:00:00 [facility] Influenza Virus 2016-02-19 Completed Universit y of Vaccine Quad IM 3+ 00:00:00 [facility] Influenza Virus 2016-02-19 Completed Universit y of Vaccine Quad IM 3+ 00:00:00 [facility] Influenza Virus 2016-02-19 Completed Universit y of Vaccine Quad IM 3+ 00:00:00 [facility] Influenza Virus 2016-02-19 Completed Universit y of Vaccine Quad IM 3+ 00:00:00 [facility] Influenza Virus 2016-02-19 Completed Universit y of Vaccine Quad IM 3+ 00:00:00 [facility] Influenza Virus 2016-02-19 Completed Universit y of Vaccine Quad IM 3+ 00:00:00 [facility] Influenza Virus 2016-02-19 Completed Universit y of Vaccine Quad IM 3+ 00:00:00 [facility] Vital Signs Vital Name Observation Time Observation Value Comments Source Systolic blood 2021-07-12 01:00:00 139 mm[Hg] Univer sity of pressure [facility] Diastolic blood 2021-07-12 01:00:00 83 mm[Hg] Unive rsity of pressure [facility] Heart rate 2021-07-12 01:00:00 85 /min [facility] Body temperature 2021-07-12 01:00:00 36.94 Rohini [facility] Respiratory rate 2021-07-12 01:00:00 18 /min [facility] Body height 2021-07-12 01:00:00 149.9 cm [facility] Body weight 2021-07-12 01:00:00 129.729 kg [facility] BMI 2021-07-12 01:00:00 57.76 kg/m2 [facility] Oxygen saturation in 2021-07-12 01:00:00 99 /min [facility] Arterial blood by [facility] Pulse oximetry Branch Systolic blood 2021-05-10 03:19:00 149 mm[Hg] Univer sity of pressure [facility] Diastolic blood 2021-05-10 03:19:00 86 mm[Hg] Unive rsity of pressure [facility] Heart rate 2021-05-10 03:19:00 98 /min Universi ty [facility] Body temperature 2021-05-10 03:19:00 37.22 [facility]ini [facility] Respiratory rate 2021-05-10 03:19:00 18 /min Univ ersity of [place] [facility] Oxygen saturation in 2021-05-10 03:19:00 97 /min University of Arterial blood by [place] [facility] norberto Pulse oximetry Branch Systolic blood 2021-04-04 03:16:24 116 mm[Hg] Univer sity of pressure [place] [facility] Diastolic blood 2021-04-04 03:16:24 64 mm[Hg] Unive rsity of pressure [place] [facility] Heart rate 2021-04-04 03:16:24 77 /min Universi ty of [place] [facility] Respiratory rate 2021-04-04 03:16:24 18 /min Univ ersity of [place] [facility] Oxygen saturation in 2021-04-04 03:16:24 96 /min University of Arterial blood by [facility] Pulse oximetry Branch Body temperature 2021-04-04 01:33:00 36.83 Rohini Univ ersity [facility] [place] [facility] Body height 2021-04-04 01:33:00 149.9 cm Universi ty of [place] [facility] Body weight 2021-04-04 01:33:00 145.151 kg Universi ty [facility] [place] [facility] BMI 2021-04-04 01:33:00 64.63 kg/m2 [facility]i ty [facility] [place] [facility] Systolic blood 2021-03-08 06:03:00 142 mm[Hg] Univer sity of pressure [place] [facility] Diastolic blood 2021-03-08 06:03:00 80 mm[Hg] Unive rsity of pressure [place] [facility] Heart rate 2021-03-08 06:03:00 66 /min Universi ty of [place] [facility] Respiratory rate 2021-03-08 06:03:00 21 /min Univ ersity of [place] [facility] Oxygen saturation in 2021-03-08 06:03:00 100 /min University of Arterial blood by [facility] Pulse oximetry Branch Body temperature 2021-03-08 04:39:00 37.17 Rohini Univ ersity of [place] [facility] Body height 2021-03-08 04:39:00 149.9 cm Universi ty of [place] [facility] Body weight 2021-03-08 04:39:00 127.007 kg Universi ty [facility] [place] [facility] BMI 2021-03-08 04:39:00 56.55 kg/m2 Universi ty [facility] [place] [facility] Systolic blood 2020-05-17 22:30:00 99 mm[Hg] Univer sity of pressure [place] [facility] Diastolic blood 2020-05-17 22:30:00 54 mm[Hg] Unive rsity of pressure [place] [facility] Heart rate 2020-05-17 22:30:00 76 /min Universi ty of [place] [facility] Respiratory rate 2020-05-17 22:30:00 18 /min Univ ersity of [place] [facility] Oxygen saturation in 2020-05-17 22:30:00 100 /min University of Arterial blood by [place] [facility] norberto Pulse oximetry Branch Body temperature 2020-05-17 19:53:00 36.5 Rohini Univ ersity [facility] [place] [facility] Body weight 2020-05-17 19:53:00 127.007 kg Universi ty of [place] [facility] BMI 2020-05-17 19:53:00 56.55 kg/m2 Universi ty [facility] [place] [facility] Systolic blood 2020-05-17 22:30:00 99 mm[Hg] Univer sity of pressure [place] [facility] Diastolic blood 2020-05-17 22:30:00 54 mm[Hg] Unive rsity of pressure [place] [facility] Heart rate 2020-05-17 22:30:00 76 /min Universi ty of [place] [facility] Respiratory rate 2020-05-17 22:30:00 18 /min Univ ersity of [place] [facility] Oxygen saturation in 2020-05-17 22:30:00 100 /min University of Arterial blood by [place] [facility] norberto Pulse oximetry Branch Body temperature 2020-05-17 19:53:00 36.5 Rohini Univ ersity [facility] [place] [facility] Body weight 2020-05-17 19:53:00 127.007 kg Universi ty of [place] [facility] BMI 2020-05-17 19:53:00 56.55 kg/m2 Universi ty [facility] [place] [facility] Systolic blood 2020-04-24 04:53:00 158 mm[Hg] Univer sity of pressure [place] [facility] Diastolic blood 2020-04-24 04:53:00 69 mm[Hg] Unive rsity of pressure [place] [facility] Heart rate 2020-04-24 04:53:00 61 /min Universi ty of [place] [facility] Body temperature 2020-04-24 04:53:00 37.5 Rohini Univ ersity [facility] [place] [facility] Respiratory rate 2020-04-24 04:53:00 20 /min Univ ersity [facility] [place] [facility] Body weight 2020-04-24 04:53:00 127.007 kg Universi ty [facility] [place] [facility] BMI 2020-04-24 04:53:00 56.55 kg/m2 Universi ty [facility] [place] [facility] Oxygen saturation in 2020-04-24 04:53:00 100 /min University of Arterial blood by [place] [facility] norberto Pulse oximetry Branch Systolic blood 2020-04-24 04:53:00 158 mm[Hg] Univer sity of pressure [place] [facility] Diastolic blood 2020-04-24 04:53:00 69 mm[Hg] Unive rsity of pressure [place] [facility] Heart rate 2020-04-24 04:53:00 61 /min Universi ty of [place] [facility] Body temperature 2020-04-24 04:53:00 37.5 Rohini Univ ersity [facility] [place] [facility] Respiratory rate 2020-04-24 04:53:00 20 /min Univ ersity [facility] [place] [facility] Body weight 2020-04-24 04:53:00 127.007 kg Universi ty [facility] [place] [facility] BMI 2020-04-24 04:53:00 56.55 kg/m2 Universi ty [facility] [place] [facility] Oxygen saturation in 2020-04-24 04:53:00 100 /min University of Arterial blood by [facility] Pulse oximetry Branch Body temperature 2020-01-03 21:00:05 36.44 Rohini Univ ersity [facility] [place] [facility] Systolic blood 2020-01-03 20:20:00 127 mm[Hg] Univer sity of pressure [place] [facility] Diastolic blood 2020-01-03 20:20:00 68 mm[Hg] Unive rsity of pressure [place] [facility] Heart rate 2020-01-03 20:20:00 68 /min Universi ty of [place] [facility] Respiratory rate 2020-01-03 20:20:00 12 /min Univ ersity of [place] [facility] Oxygen saturation in 2020-01-03 20:20:00 99 /min University of Arterial blood by [place] [facility] norberto Pulse oximetry Branch Body height 2020-01-03 17:01:00 149.9 cm Universi ty [facility] [place] [facility] Body weight 2020-01-03 17:01:00 127.007 kg Universi ty [facility] [place] [facility] BMI 2020-01-03 17:01:00 56.55 kg/m2 Universi ty [facility] [place] [facility] Body temperature 2020-01-03 21:00:05 36.44 Rohini Univ ers[facility] [place] [facility] Systolic blood 2020-01-03 20:20:00 127 mm[Hg] Univer sity of pressure [place] [facility] Diastolic blood 2020-01-03 20:20:00 68 mm[Hg] Unive rsity of pressure [place] [facility] Heart rate 2020-01-03 20:20:00 68 /min Universi ty of [place] [facility] Respiratory rate 2020-01-03 20:20:00 12 /min Univ ersity [facility] [place] [facility] Oxygen saturation in 2020-01-03 20:20:00 99 /min University of Arterial blood by [place] [employer] norberto Pulse oximetry Branch Body height 2020-01-03 17:01:00 149.9 cm Universi ty [facility] [place] [facility] Body weight 2020-01-03 17:01:00 127.007 kg Universi ty [facility] [place] [facility] BMI 2020-01-03 17:01:00 56.55 kg/m2 Universi ty [facility] [place] [facility] Systolic blood 2019-10-14 18:30:00 134 mm[Hg] Univer sity of pressure [place] [facility] Diastolic blood 2019-10-14 18:30:00 72 mm[Hg] Unive rsity of pressure [place] [facility] Heart rate 2019-10-14 18:30:00 73 /min Universi ty of [place] [facility] Respiratory rate 2019-10-14 18:30:00 17 /min Univ ersity of [place] [facility] Oxygen saturation in 2019-10-14 18:30:00 97 /min University of Arterial blood by [place] [facility] norberto Pulse oximetry Branch Body temperature 2019-10-14 15:46:00 36.67 Rohini Univ ers[facility] [place] [facility] Body height 2019-10-14 15:46:00 152.4 cm Universi ty [facility] [place] [facility] Body weight 2019-10-14 15:46:00 127.007 kg [facility]i ty [facility] [place] [facility] BMI 2019-10-14 15:46:00 54.68 kg/m2 Universi ty [facility] [place] [facility] Systolic blood 2019-10-14 18:30:00 134 mm[Hg] Univer sity of pressure [place] [facility] Diastolic blood 2019-10-14 18:30:00 72 mm[Hg] Unive rsity of pressure [place] [facility] Heart rate 2019-10-14 18:30:00 73 /min Universi ty [facility] [place] [facility] Respiratory rate 2019-10-14 18:30:00 17 /min Univ ersity [facility] [place] [facility] Oxygen saturation in 2019-10-14 18:30:00 97 /min University of Arterial blood by [facility] Pulse oximetry Branch Body temperature 2019-10-14 15:46:00 36.67 Rohini Univ ers[facility] [place] [facility] Body height 2019-10-14 15:46:00 152.4 cm Universi ty [facility] [place] [facility] Body weight 2019-10-14 15:46:00 127.007 kg [facility]i ty [facility] [place] [facility] BMI 2019-10-14 15:46:00 54.68 kg/m2 [facility]i ty [facility] [place] [facility] Systolic blood 2019-05-28 00:40:30 132 mm[Hg] Univer sity of pressure [place] [facility] Diastolic blood 2019-05-28 00:40:30 80 mm[Hg] Unive rsity of pressure [place] [facility] Heart rate 2019-05-28 00:40:30 83 /min Universi ty [facility] [place] [facility] Respiratory rate 2019-05-28 00:40:30 18 /min Univ ers[facility] [place] [facility] Oxygen saturation in 2019-05-28 00:40:30 99 /min University of Arterial blood by [facility] Pulse oximetry Branch Body temperature 2019-05-27 22:45:22 36.72 Rohini Univ [facility] [place] [facility] Body weight 2019-05-27 21:48:00 127.007 kg [facility]i ty [facility] [place] [facility] BMI 2019-05-27 21:48:00 54.68 kg/m2 [facility]i ty [facility] [place] [facility] Systolic blood 2019-05-28 00:40:30 132 mm[Hg] Univer sity of pressure [place] [facility] Diastolic blood 2019-05-28 00:40:30 80 mm[Hg] Unive rsity of pressure [place] [facility] Heart rate 2019-05-28 00:40:30 83 /min Universi ty [facility] [place] [facility] Respiratory rate 2019-05-28 00:40:30 18 /min Univ ersity [facility] [place] [facility] Oxygen saturation in 2019-05-28 00:40:30 99 /min University of Arterial blood by [facility] Pulse oximetry Branch Body temperature 2019-05-27 22:45:22 36.72 Rohini Univ [facility] [place] [facility] Body weight 2019-05-27 21:48:00 127.007 kg [facility] BMI 2019-05-27 21:48:00 54.68 kg/m2 [facility] Procedures Procedure Date / Time Performing Clinician Source Performed RAPID STREP SCREEN FOR 2021-07-12 01:08:00 [facility] [place] [facility] A Medical Branch RAPID INFLUENZA A/B 2021-07-12 01:08:00 Bhavin Pichardo [facility] COVID-19 (ID NOW RAPID 2021-07-12 01:08:00 [facility] [place] [facility] TESTING) Medical Branch CONSENT/REFUSAL FOR 2021-07-12 00:40:57 Doctor Unassigned, No Un [facility] [place] DIAGNOSIS AND TREATMENT Name Medical Branch XR CHEST 2 VW 2021-05-10 04:05:14 Julio César Coleman [place] [facility] NOTICE OF PRIVACY 2021-05-10 03:11:40 Doctor Unassigned, No [facility] Medical Branch CONSENT/REFUSAL FOR 2021-05-10 03:08:35 Doctor Unassigned, No Un [facility] [place] DIAGNOSIS AND TREATMENT Name Medical [place] URINALYSIS 2021-04-04 02:04:00 Almita Vargas [facility] RAPID STREP SCREEN FOR 2021-04-04 02:04:00 Almita Vargas [facility] GROUP A Medical Branch CONSENT/REFUSAL FOR 2021-04-04 01:28:15 Doctor Unassigned, No [facility] [place] DIAGNOSIS AND TREATMENT Name Medical Branch XR KNEE 3 VW RIGHT 2021-03-08 05:41:41 Ruby Perry [facility] XR RIBS 3 VW RIGHT 2021-03-08 05:41:41 Ruby Perry [facility] URINALYSIS 2021-03-08 04:56:00 Ruby Perry [facility] POCT TEST 2021-03-08 04:55:00 Ruby Perry [facility] CONSENT/REFUSAL FOR 2021-03-08 04:26:49 Doctor Unassigned, No Un [facility] [place] DIAGNOSIS AND TREATMENT Name Medical Branch CT ABDOMEN PELVIS W 2020-05-17 22:00:14 Julio César Coleman [facility] CONTRAST [facility] Branch URINALYSIS 2020-05-17 20:58:00 Julio César Coleman [facility] POCT TEST 2020-05-17 20:57:00 Julio César Coleman [facility] LIPASE 2020-05-17 20:11:00 Julio César Coleman [facility] TEST, SERUM 2020-05-17 20:11:00 Julio César Coleman [facility] COMP. METABOLIC PANEL 2020-05-17 20:11:00 Julio César Coleman [facility] ([id number]) Medical [place] CBC WITH DIFF 2020-05-17 20:11:00 Julio César Coleman [facility] NOTICE OF PRIVACY 2020-05-17 19:45:39 Doctor Unassigned, No [facility]SENT[facility]REFUSAL FOR 2020-05-17 19:45:23 Doctor Unassigned, No [facility] [place] DIAGNOSIS AND TREATMENT Name [facility] POCT TEST 2020-04-24 05:17:00 Ruby Perry [facility] NOTICE OF PRIVACY 2020-04-24 04:47:03 Doctor Unassigned, No [facility] CONSENT/REFUSAL FOR 2020-04-24 04:46:22 Doctor Unassigned, No [facility] [place] DIAGNOSIS AND TREATMENT Name [facility] XR CHEST 1 VW 2020-01-03 18:47:04 Almita Vargas [facility] CT HEAD WO CONTRAST 2020-01-03 18:19:31 Almita Vargas [facility] BASIC METABOLIC PANEL 2020-01-03 18:05:00 Almita Vargas [facility] (NA, K, CL, CO2, Medical Branch GLUCOSE, BUN, CREATININE, CA) CBC WITH DIFF 2020-01-03 18:05:00 Almita Vargas [facility] URINALYSIS 2020-01-03 18:05:00 Almita Vargas [facility] POCT TEST 2020-01-03 17:59:00 Almita Vargas [facility] EKG-12 LEAD 2020-01-03 17:31:39 Almita Vargas [facility] NOTICE OF PRIVACY 2020-01-03 16:54:57 Doctor Unassigned, No [facility] PRACTICES Name Medical Branch CONSENT/REFUSAL FOR 2020-01-03 16:54:25 Doctor Unassigned, No [facility] DIAGNOSIS AND TREATMENT Name Medical Branch URINALYSIS 2019-10-14 17:14:00 Almita Vargas [facility] XR CHEST 1 VW COVID 2019-10-14 16:52:08 hBavin Pichardo [facility] LIPASE 2019-10-14 16:17:00 Bhavin Pichadro [facility] TROPONIN I 2019-10-14 16:17:00 Bhavin Pichardo [facility] COMP. METABOLIC PANEL 2019-10-14 16:17:00 Bhavin Pichardo [facility] ([id number]) Medical Branch CBC WITH DIFFERENTIAL 2019-10-14 16:17:00 Bhavin Pichardo [facility] PROTHROMBIN TIME / INR 2019-10-14 16:17:00 Bhavin Pichardo [facility] ACTIVATED PARTIAL 2019-10-14 16:17:00 Bhavin Pichardo [facility] THRMPLAS ELEANOR [facility] COVID-19 (ID NOW RAPID 2019-10-14 16:17:00 Bhavin Pichardo [facility] TESTING) Medical Branch EKG-12 LEAD 2019-10-14 16:13:25 Bhavin Pichardo [facility] CT CHEST PULMONARY 2019-05-28 00:28:48 Almita Vargas [facility] ANGIOGRAM Medical Branch XR CHEST 1 VW 2019-05-27 22:57:06 Almita Vargas [facility] TROPONIN I 2019-05-27 22:56:00 Almita Vargas [facility] BASIC METABOLIC PANEL 2019-05-27 22:56:00 Almita Vargas [facility] (NA, K, CL, CO2, Medical Branch GLUCOSE, BUN, CREATININE, CA) CBC WITH DIFFERENTIAL 2019-05-27 22:56:00 Almita Vargas [facility] D-DIMER 2019-05-27 22:56:00 Almita Vargas [place] [facility] POCT TEST 2019-05-27 22:43:00 Almita Vargas [facility] EKG-12 LEAD 2019-05-27 22:28:03 Almita Vargas [place] [facility] CONSENT/REFUSAL FOR 2019-05-27 21:41:13 Doctor Unassigned, No Un [facility] DIAGNOSIS AND TREATMENT Name Medical [place] Encounters Start End Encounter Admission Attending Care Care Encounter Source Date/Time Date/Time Type Type Clinicians Facility Department ID 2021-07-11 2021-07-11 [id number] Univers 19:09:00 20:23:00 BHAVIN [facility] [place] [facility] 2021-07-11 2021-07-11 [facility] [id number] Univers 19:09:00 20:23:00 Bhavin [place] [id number] i ty of [place] [id number] [facility] [id number] [address] 2021-05-09 2021-05-09 Emergency X [facility] ERT [id number] Univers 21:23:00 22:43:00 JULIO CÉSAR [facility] [place] [facility] 2021-05-09 2021-05-09 Emergency [facility] [id number] Univers 21:23:00 22:43:00 Julio César [place] [id number] i ty of [place] [id number] [facility] [id number] [address] 2021-04-03 2021-04-03 [facility] [id number] Univers 19:35:00 21:18:00 ALMITA [facility] [place] [facility] 2021-04-03 2021-04-03 Emergency [facility] [id number] Univers 19:35:00 21:18:00 Almita [place] 350.1.13.10 i ty of [place] 4.2.7.2.686 [facility] [id number] [address] 2021-03-07 2021-03-08 Emergency X PERRY, [facility] ERT [id number] Univers 23:43:00 01:52:[address] [facility] 2021-03-07 2021-03-08 Emergency [place], [facility] 1.2.840.114 [id number] Univers 23:43:00 01:52:00 Ruby [place] 350.1.13.10 i ty of [place] 4.2.7.2.686 [facility] [id number] [address] 2020-05-17 2020-05-17 Emergency [place], [facility] 1.2.145.380 [id number] 191 13:51:00 17:08:00 Julio César R [place] 350.1.13.10 [place] 4.2.7.2.686 [place] [id number] [facility] 2020-05-17 2020-05-17 Emergency [place], [facility] 1.2.184.973 [id number] Univers 13:51:00 17:08:00 Julio César R [place] 350.1.13.10 i ty of [place] 4.2.7.2.686 [facility] [id number] [address] 2020-05-17 2020-05-17 Emergency X [facility] ERT [id number] Univers 13:45:00 13:45:00 ity [facility] 2020-04-23 2020-04-23 Emergency [place], [facility] 1.2.840.114 [id number] 22:55:00 23:39:00 Ruby [place] 350.1.13.10 [place] 4.2.7.2.686 [place] [id number] [facility] 2020-04-23 2020-04-23 Emergency [place], [facility] 1.2.840.114 [id number] Univers 22:55:00 23:39:00 Ruby [place] 350.1.13.10 i ty of [place] 4.2.7.2.686 [facility] [id number] [address] 2020-04-23 2020-04-23 Emergency X PERRY, [facility] ERT [id number] Univers 22:55:00 22:55:00 RUBY weir [facility] 2020-01-03 2020-01-03 [facility] 1.2.009.436 [id number] 12:08:00 16:01:00 Almita S [place] 350.1.13.10 [place] 4.2.7.2.686 [place] [id number] [facility] 2020-01-03 2020-01-03 Emergency [facility] 1.2.583.197 [id number] Univers 12:08:00 16:01:00 Almita S [place] 350.1.13.10 i ty of [place] 4.2.7.2.686 [facility] [id number] [address] 2020-01-03 2020-01-03 [facility] [id number] Univers 12:08:00 12:08:00 ALMITA weir [facility] 2019-10-14 2019-10-14 [facility] 1.2.279.055 [id number] 10:47:05 13:44:00 Almita S [place] 350.1.13.10 [place] 4.2.7.2.686 [place] [id number] [facility] 2019-10-14 2019-10-14 Emergency [place] [facility] [id number] Univers 10:47:05 13:44:00 ALMITA weir [facility] 2019-10-14 2019-10-14 [facility] 1.2.890.825 [id number] Univers 10:47:05 13:44:00 Almita S [place] 350.1.13.10 i ty of [place] 4.2.7.2.686 [facility] [id number] [address] 2019-05-27 2019-05-27 [facility] 1.2.702.706 [id number] 15:49:53 19:35:00 Almita S [place] 350.1.13.10 [place] 4.2.7.2.686 [place] [id number] [facility] 2019-05-27 2019-05-27 [facility] 1.2.508.607 [id number] [facility] 15:49:53 19:35:00 Almita [place] 350.1.13.10 i ty of [place] 4.2.7.2.686 [facility] [id number] [facility] [address] 2019-05-27 2019-05-27 Orders Doctor BRANDON 1.2.840.114 [id number] 00:00:00 00:00:00 Only Unassigned, YANETH 350.1.13.10 [place] [facility] 4.2.7.2.686 [id number] 2019-05-27 2019-05-27 Orders Doctor BRANDON 1.2.840.114 [id number] Univers 00:00:00 00:00:00 Only Unassigned, YANETH 350.1.13.10 ity of [facility] 4.2.7.2.686 [facility] [id number] [address] Results Test Description Test Time Test Comments Results Result Comments Source POCT TEST 2021-03-08 04:55:00 Test Item Value Reference Range Interpretation Comme nts POCT PREG (test code = 1605) negative On board controls acceptable with C Line (test code = 3574) present POCT PREG LOT # (test code = 3575) [id number] POCT PREG TEST DATE (test code = 3576) Lab Interpretation (test code = 04087-2) Normal [facility] [id number] 22:05:30CT Abdomen and Pelvis with intravenous contrast. [...] Unremarkable.CONCLUSION: No acute intra-abdominal or pelvic abnormalities detected.[facility]. METABOLIC PANEL ([id number])2020-05-17 21:35:00 Test Item Value Reference Range Interpretation Comments NA (test code = 136 mmol/L 135-145 2926260580) K (test code = 4.5 mmol/L 3.5-5 0201951865) CL (test code = 103 mmol/L 98-108 2834042509) CO2 TOTAL (test code = 27 mmol/L 23-31 2751794416) AGAP (test code = 2-16 4216204183) BUN (test code = 16 mg/dL 7-23 5673672328) GLUCOSE (test code = 95 mg/dL 70-110 4806687135) CREATININE (test code = 0.55 mg/dL 0.5-1.04 2222285469) TOTAL BILI (test code = 0.9 mg/dL 0.1-1.4 2596881433) CALCIUM (test code = 8.3 mg/dL 8.6-10.6 L 0904334258) T PROTEIN (test code = 7.8 g/dL 6.3-8.2 7071583967) ALBUMIN (test code = 4.1 g/dL 3.5-5 3580590249) ALK PHOS (test code = 75 U/L 34-122 8443506617) ALTv (test code = 15 U/L 5-35 1742-6) AST(SGOT) (test code = 32 U/L 13-40 3824754043) eGFR Calculation mL/min/1.73m2 (Non-) (test code = 1774796650) eGFR Calculation mL/min/1.73m2 () (test code = 9022264001) MARCO (test code = MARCO) Association of [...] tests). Lab Interpretation Abnormal (test code = 43790-0) [facility] 21:34:00 Test Item Value Reference Range Interpretation Comments LIPASE (test code = 1594096709) 26 U/L 0-220 Lab Interpretation (test code = Normal 10004-6) [facility]2021-[facility]-13 21:29:00 Test Item Value Reference Range Interpretation Comments APPEARANCE (test code = Hazy Clear A 7502262374) COLOR (test code = Yellow Yellow 1175844661) PH (test code = 4.8-8.0 5587355737) SP GRAVITY (test code = 1.003-1.030 6181024318) GLU U QUAL (test code = Normal Normal 8461351311) BLOOD (test code = 3+ Negative A 3770017660) KETONES (test code = Negative Negative 3057497261) PROTEIN (test code = 30 mg/dL Negative A 2887-8) UROBILIN (test code = Normal Normal 9002895756) BILIRUBIN (test code = Negative Negative 5139291531) NITRITE (test code = Negative Negative 6291028217) LEUK ROBERTO (test code = 250/uL Negative A 8908873058) RBC/HPF (test code = See_Comment H [Autom ated message] 1612194753) The system Re-APP generated this result transmitted ref erence range: 0 - 3 HP F. The reference range was not used to int erpret this result as normal/abnormal . WBC/HPF (test code = See_Comment H [Autom ated message] 2233297985) The system Re-APP generated this result transmitted ref erence range: 0 - 5 HP F. The reference range was not used to int erpret this result as normal/abnormal . BACTERIA (test code = Negative Negative 2498451224) MUCOUS (test code = Marked Negative LPF A 8347061803) SQ EPITH (test code = HPF 5822362854) Lab Interpretation (test Abnormal code = 21106-8) [facility], [id number] 21:21:00 Test Item Value Reference Range Interpretation Comments PREG SERUM (test code Negative = 9277264395) MARCO (test code = MARCO) Less than 10 IU/L. ?If low titer or ectopic is suspected, resubmit specimen in 48-72 hours. [facility]PO[facility] [id number] 20:57:00 Test Item Value Reference Range Interpretation Comments POCT PREG (test code = 1605) negative On board controls acceptable with present C Line (test code = 3574) POCT PREG LOT # (test code = 3575) [id number] POCT PREG TEST DATE (test 01/02/2022 code = 3576) Lab Interpretation (test code = Normal 79398-3) [facility]CB WITH [id number] 20:33:00 Test Item Value Reference Range Interpretation Comments WBC (test code = See_Comment [Automated 6890-2) message] The sy stem which generated this [...] RDW-SD (test code = 45.9 fL 39-49.9 59996-7) RDW-CV (test code = 15.3 % 12-15.5 788-0) PLT (test code = See_Comment H [Automated 777-3) message] The sy stem which generated this result transmitted reference range : 166 - 358 10*3/ ?L. The reference r rupesh was not used to interpret this result as normal/abnormal . MPV (test code = 9.9 fL 9.5-12.9 31374-1) NRBC/100 WBC (test See_Comment [Automat ed code = 6361127661) message] The system which generated this result transmitted reference range : 0.0 - 10.0 /100 WBCs. The refer ence range was not u sed to interpret th is result as normal/abnormal . NRBC x10^3 (test code <0.01 See_Comment [Auto mated = 0899645036) message] The s ystem which generated this result transmitted reference range : 10*3/?L. The reference range was not used to interpret this result as normal/abnormal . GRAN MAT (NEUT) % 66.2 % (test code = 770-8) IMM GRAN % (test code 0.30 % = 2735321275) LYMPH % (test code = 26.8 % 736-9) MONO % (test code = 4.6 % 5905-5) EOS % (test code = 1.4 % 713-8) BASO % (test code = 0.7 % 706-2) GRAN MAT x10^3(ANC) 5.88 10*3/uL 1.88-7.09 (test code = 8459921597) IMM GRAN x10^3 (test 0.03 10*3/uL 0-0.06 code = 8073340282) LYMPH x10^3 (test code 2.38 10*3/uL 1.32-3.29 = 731-0) MONO x10^3 (test code 0.41 10*3/uL 0.33-0.92 = 742-7) EOS x10^3 (test code = 0.12 10*3/uL 0.03-0.39 711-2) BASO x10^3 (test code 0.06 10*3/uL 0.01-0.07 = 704-7) Lab Interpretation Abnormal (test code = 73898-8) [facility]PO[facility] [id number] 05:17:00 Test Item Value Reference Range Interpretation Comments POCT PREG (test code = 1605) negative On board controls acceptable with present C Line (test code = 3574) POCT PREG LOT # (test code = 3575) [id number] POCT PREG TEST DATE (test 2021-09-01 code = 3576) Lab Interpretation (test code = Normal 75048-5) [facility]XR CHEST 1 [id number] 18:56:37 No acute cardiopulmonary abnormality. Preliminary Report [...] reviewed this study and agree with the abovereport.[facility] CenterCT HEAD WO [id number] 18:41:07 No acute intracranial hemorrhage or mass [...] reviewed this study and agree with theabove report.[facility] METABOLIC PANEL (NA, K, CL, CO2, GLUCOSE, BUN, CREATININE, CA)2020-01-03 18:30:00 Test Item Value Reference Range Interpretation Comments NA (test code = 137 mmol/L 135-145 1164082474) K (test code = 4.0 mmol/L 3.5-5 3801282352) CL (test code = 105 mmol/L 98-108 7813658234) CO2 TOTAL (test code = 28 mmol/L 23-31 8496429189) AGAP (test code = 2-16 8807962433) BUN (test code = 15 mg/dL 7-23 4784009717) GLUCOSE (test code = 89 mg/dL 70-110 6582975172) CREATININE (test code 0.52 mg/dL 0.5-1.04 = 3214226362) CALCIUM (test code = 8.6 mg/dL 8.6-10.6 8422688836) eGFR Calculation mL/min/1.73m2 (Non-) (test code = 3020244789) eGFR Calculation mL/min/1.73m2 () (test code = 2040255590) MARCO (test code = MARCO) Association of [...] or urine or abnormalities in imaging tests). [facility] WITH [id number] 18:27:00 Test Item Value Reference Range Interpretation [...] RDW-SD (test code = 49.1 fL 39-49.9 51008-1) RDW-CV (test code = 16.1 % 12-15.5 H 788-0) PLT (test code = See_Comment [Automated 777-3) message] The sy stem which generated this result transmitted reference range : 166 - 358 10*3/ ?L. The reference r rupesh was not used to interpret this result as normal/abnormal . MPV (test code = 10.1 fL 9.5-12.9 85879-7) NRBC/100 WBC (test See_Comment [Automat ed code = 6831770439) message] The system which generated this result transmitted reference range : 0.0 - 10.0 /100 WBCs. The refer ence range was not u sed to interpret th is result as normal/abnormal . NRBC x10^3 (test code <0.01 See_Comment [Auto mated = 4320816242) message] The s ystem which generated this result transmitted reference range : 10*3/?L. The reference range was not used to interpret this result as normal/abnormal . GRAN MAT (NEUT) % 65.7 % (test code = 770-8) IMM GRAN % (test code 0.50 % = 5407089807) LYMPH % (test code = 26.6 % 736-9) MONO % (test code = 4.9 % 5905-5) EOS % (test code = 1.9 % 713-8) BASO % (test code = 0.4 % 706-2) GRAN MAT x10^3(ANC) 6.23 10*3/uL 1.88-7.09 (test code = 6413878171) IMM GRAN x10^3 (test 0.05 10*3/uL 0-0.06 code = 1533569887) LYMPH x10^3 (test code 2.53 10*3/uL 1.32-3.29 = 731-0) MONO x10^3 (test code 0.47 10*3/uL 0.33-0.92 = 742-7) EOS x10^3 (test code = 0.18 10*3/uL 0.03-0.39 711-2) BASO x10^3 (test code 0.04 10*3/uL 0.01-0.07 = 704-7) Lab Interpretation Abnormal (test code = 16837-9) [facility]IN[facility]IS2020-08-31 18:22:00 Test Item Value Reference Range Interpretation Comments APPEARANCE (test code = Clear Clear 6862997789) COLOR (test code = Yellow Yellow 4266015319) PH (test code = 4.8-8.0 7916301178) SP GRAVITY (test code = 1.003-1.030 4633646150) GLU U QUAL (test code = Normal Normal 9494112812) BLOOD (test code = Negative Negative 1940193047) KETONES (test code = Negative Negative 7483852745) PROTEIN (test code = Negative Negative 2887-8) UROBILIN (test code = Normal Normal 1460207729) BILIRUBIN (test code = Negative Negative 8429233725) NITRITE (test code = Negative Negative 8949087657) LEUK ROBERTO (test code = Negative Negative 1099293033) RBC/HPF (test code = See_Comment H [Autom ated message] 7185609856) The system Re-APP generated this result transmitted ref erence range: 0 - 3 HP F. The reference range was not used to int erpret this result as normal/abnormal . WBC/HPF (test code = See_Comment [Autom ated message] 5290882439) The system Re-APP generated this result transmitted ref erence range: 0 - 5 HP F. The reference range was not used to int erpret this result as normal/abnormal . BACTERIA (test code = Few Negative A 0725383518) MUCOUS (test code = Slight Negative LPF A 0949032618) SQ EPITH (test code = HPF 4134376255) Lab Interpretation (test Abnormal code = 84062-6) [facility]PO[facility] [id number] 17:59:00 Test Item Value Reference Range Interpretation Comments POCT PREG (test code = 1605) negative On board controls acceptable with present C Line (test code = 3574) POCT PREG LOT # (test code = 3575) [id number] POCT PREG TEST DATE (test 12/02/2020 code = 3576) Lab Interpretation (test code = Normal 53170-5) [facility]URIN[facility]IS2020-06-11 17:36:00 Test Item Value Reference Range Interpretation Comments APPEARANCE (test code = Hazy Clear A 1917366946) COLOR (test code = Yellow Yellow 5338486428) PH (test code = 4.8-8.0 7835772508) SP GRAVITY (test code = 1.003-1.030 2051905394) GLU U QUAL (test code = Normal Normal 0633288858) BLOOD (test code = Negative Negative 7585090521) KETONES (test code = Negative Negative 8927134822) PROTEIN (test code = Negative Negative 2887-8) UROBILIN (test code = Normal Normal 0092976196) BILIRUBIN (test code = Negative Negative 3765368818) NITRITE (test code = Negative Negative 4262720183) LEUK ROBERTO (test code = 25/uL Negative A 9707696861) RBC/HPF (test code = See_Comment [Autom ated message] 7070332731) The system Re-APP generated this result transmitted ref erence range: 0 - 3 HP F. The reference range was not used to int erpret this result as normal/abnormal . WBC/HPF (test code = See_Comment [Autom ated message] 6925122987) The system Re-APP generated this result transmitted ref erence range: 0 - 5 HP F. The reference range was not used to int erpret this result as normal/abnormal . BACTERIA (test code = Few Negative A 2641124566) MUCOUS (test code = Marked Negative LPF A 4470342176) SQ EPITH (test code = HPF 7586462864) Lab Interpretation (test Abnormal code = 13613-2) [facility]ST 1 VW [id number] 16:54:27 1. Minimal congestion in the lungs, nonspecific and likely secondary toviral infection/bronchitis.2. No pneumonia. Disclaimer: Generally, the findings on chest imaging in COVID-19 are notspecific, andoverlap with other infections, including influenza, H1N1,SARS and MERS.According to the Centers for Disease Control (CDC) and the [employer] [place] [employer], viral testing remains the only specific method of diagnosiseven if CXR or CT findings are suggestive of COVID-19. PROCEDURE: CHEST XRAY, portable AP erect. CLINICAL INDICATION: sob COMPARISON: None FINDINGS: Lungs: Minimal congestion near thehila and in the lower lungs. Pleura: No pleural effusion or pneumothorax is seen. The heart is normal insize. No acute bony abnormality. [place], Radiant Results Inft User - 10/14/2019 11:55 AM CDTPROCEDURE: CHEST XRAY, portable AP erect.CLINICAL INDICATION: sob COMPARISON: NoneFINDINGS:Lungs: Minimal congestion near the shmuel and in the lower lungs.Pleura: No pleural effusion or pneumothorax is seen. The heart is normal insize.No acute bony abnormality.IMPRESSION1. Minimal congestion in the lungs, nonspecific and likely secondary toviral infection/bronchitis.2. No pneumonia. Disclaimer: Generally, thefindings on chest imaging in COVID-19 are notspecific, and overlap with other infections, including influenza, H1N1,SARS and MERS.According to the Centers for Disease Control (CDC) and the [employer] [place] [employer], viral testing remains the only specific method of diagnosiseven if CXR or CT findings are suggestive of COVID-19.[facility] CenterTRYULIANA [id number] 16:54:00 Test Item Value Reference Range Interpretation Comments TROPONIN I (test <0.012 See_Comment [Automated code = 0744867634) message] The system which generated this result [...] ? Lab Interpretation Normal (test code = 86977-3) [facility] CenterCOVID-[facility] (ID NOW RAPID TESTING)2019-10-14 16:51:00 Test Item Value Reference Range Interpretation Comments SARS-CoV-2 Rapid ID NOW Not Detected Not Detected (test code = 39365-6) MARCO (test code = MARCO) ID NOW COVID-19 Assay is an isothermal nucleic acid amplification test intended for the qualitative detection of nucleic acid from SARS-CoV-2 viral RNA in nasopharyngeal (PLASTIC EXTRUDING MACHINE OPERATOR) specimens. It is used under Emergency Use [...] indicated. Lab Interpretation Normal (test code = 53112-2) [facility] CenteraPTT2020-06-11 16:44:00 Test Item Value Reference Range Interpretation Comments APTT Patient (test See_Comment [Automat ed code = 3173-2) message] The system which generated this result transmitted reference range : 23 - 38 Seconds . The reference range was not used to interpr et this result as normal/abnormal . MARCO (test code = MARCO) The [facility] patient population mean normal value for aPTT is 30 seconds. Lab Interpretation Normal (test code = 37283-4) [facility] CenterCOMP. METABOLIC PANEL (69534)2019-10-14 16:43:00 Test Item Value Reference Range Interpretation Comments NA (test code = 137 mmol/L 135-145 4358050127) K (test code = 4.1 mmol/L 3.5-5 9152164690) CL (test code = 107 mmol/L 98-108 8275442943) CO2 TOTAL (test code = 26 mmol/L 23-31 7255366772) AGAP (test code = 2-16 7343859414) BUN (test code = 18 mg/dL 7-23 2669134229) GLUCOSE (test code = 97 mg/dL 70-110 0409162077) CREATININE (test code 0.55 mg/dL 0.5-1.04 = 5635465299) TOTAL BILI (test code 0.3 mg/dL 0.1-1.1 = 7144378597) CALCIUM (test code = 9.0 mg/dL 8.6-10.6 1612727089) T PROTEIN (test code = 7.7 g/dL 6.3-8.2 3447833080) ALBUMIN (test code = 4.1 g/dL 3.5-5 6341800855) ALK PHOS (test code = 89 U/L 34-122 5130556808) ALTv (test code = 14 U/L 5-35 1742-6) AST(SGOT) (test code = 22 U/L 13-40 3336577370) eGFR Calculation mL/min/1.73m2 (Non-) (test code = 8772795004) eGFR Calculation mL/min/1.73m2 () (test code = 5252080164) MARCO (test code = MARCO) Association of [...] or urine or abnormalities in imaging tests). [facility] CenterLIPASE, [id number] 16:43:00 Test Item Value Reference Range Interpretation Comments LIPASE (test code = 4449000999) 48 U/L 0-220 Lab Interpretation (test code = Normal 27898-3) [facility] CenterPROTHROMBIN TIME / [id number] 16:42:00 Test Item Value Reference Range Interpretation [...] tions. Lab Interpretation (test Normal code = 84850-6) [facility] WITH [id number] 16:29:00 Test Item Value Reference Range Interpretation Comments WBC (test code = See_Comment [Automated 1190-2) message] The sy stem which generated this [...] RDW-SD (test code = 49.1 fL 39-49.9 94652-9) RDW-CV (test code = 16.0 % 12-15.5 H 788-0) PLT (test code = See_Comment [Automated 777-3) message] The sy stem which generated this result transmitted reference range : 166 - 358 10*3/ ?L. The reference r rupesh was not used to interpret this result as normal/abnormal . MPV (test code = 10.0 fL 9.5-12.9 53634-2) NRBC/100 WBC (test See_Comment [Automat ed code = 6343163089) message] The system which generated this result transmitted reference range : 0.0 - 10.0 /100 WBCs. The refer ence range was not u sed to interpret th is result as normal/abnormal . NRBC x10^3 (test code <0.01 See_Comment [Auto mated = 6505551664) message] The s ystem which generated this result transmitted reference range : 10*3/?L. The reference range was not used to interpret this result as normal/abnormal . GRAN MAT (NEUT) % 67.4 % (test code = 770-8) IMM GRAN % (test code 0.40 % = 8803653545) LYMPH % (test code = 24.7 % 736-9) MONO % (test code = 4.4 % 5905-5) EOS % (test code = 2.7 % 713-8) BASO % (test code = 0.4 % 706-2) GRAN MAT x10^3(ANC) 6.53 10*3/uL 1.88-7.09 (test code = 0347926364) IMM GRAN x10^3 (test 0.04 10*3/uL 0-0.06 code = 8317866578) LYMPH x10^3 (test code 2.40 10*3/uL 1.32-3.29 = 731-0) MONO x10^3 (test code 0.43 10*3/uL 0.33-0.92 = 742-7) EOS x10^3 (test code = 0.26 10*3/uL 0.03-0.39 711-2) BASO x10^3 (test code 0.04 10*3/uL 0.01-0.07 = 704-7) Lab Interpretation Abnormal (test code = 92432-6) [facility] CenterCT CHEST PULMONARY [id number] 00:50:34No pulmonary embolus.2. No thoracic aortic aneurysm [...] signed by Naif Cantrell at 05/27/2019 6:50 PMGrace Medical CenterD-[id number] 23:38:00 Test Item Value Reference Interpretation Comments Range D-DIMER (test code = See_Comment H [Autom ated 7648407072) message] The system which generated this result [...] diagnosis. Lab Interpretation Abnormal (test code = 35263-0) [facility] CenterTRAMADOUNIN [id number] 23:30:00 Test Item Value Reference Range Interpretation Comments TROPONIN I (test <0.012 See_Comment [Automated code = 4650964593) message] The system which generated this result transmitted reference range : <=0.034 ng/mL. The reference range was not used to interpr et this result as normal/abnormal . AMRCO (test code = Equal or Less than [...] ? Lab Interpretation Normal (test code = 84319-0) [facility] CenterBASIC METABOLIC PANEL (NA, K, CL, CO2, GLUCOSE, BUN, CREATININE, CA)2019-05-27 23:19:00 Test Item Value Reference Range Interpretation Comments NA (test code = 139 mmol/L 135-145 5411988790) K (test code = 3.7 mmol/L 3.5-5 7496875433) CL (test code = 103 mmol/L 98-108 8412172930) CO2 TOTAL (test code = 28 mmol/L 23-31 7120278492) AGAP (test code = 2-16 8949589939) BUN (test code = 12 mg/dL 7-23 3381678981) GLUCOSE (test code = 90 mg/dL 70-110 3775039088) CREATININE (test code 0.60 mg/dL 0.5-1.04 = 5087245978) CALCIUM (test code = 8.8 mg/dL 8.6-10.6 5475483866) eGFR Calculation mL/min/1.73m2 (Non-) (test code = 3178304997) eGFR Calculation mL/min/1.73m2 () (test code = 5944367982) MARCO (test code = MARCO) Association of [...] or urine or abnormalities in imaging tests). [facility] WITH [id number] 23:07:00 Test Item Value Reference Range Interpretation [...] RDW-SD (test code = 49.0 fL 39-49.9 76598-1) RDW-CV (test code = 15.9 % 12-15.5 H 788-0) PLT (test code = See_Comment H [Automated 777-3) message] The sy stem which generated this result transmitted reference range : 166 - 358 10*3/ ?L. The reference r rupesh was not used to interpret this result as normal/abnormal . MPV (test code = 10.2 fL 9.5-12.9 81369-5) NRBC/100 WBC (test See_Comment [Automat ed code = 6861107068) message] The system which generated this result transmitted reference range : 0.0 - 10.0 /100 WBCs. The refer ence range was not u sed to interpret th is result as normal/abnormal . NRBC x10^3 (test code <0.01 See_Comment [Auto mated = [id number]) message] The s ystem which generated this result transmitted reference range : 10*3/?L. The reference range was not used to interpret this result as normal/abnormal . GRAN MAT (NEUT) % 68.7 % (test code = 770-8) IMM GRAN % (test code 0.50 % = 9404798878) LYMPH % (test code = 24.5 % 736-9) MONO % (test code = 4.1 % 5905-5) EOS % (test code = 1.9 % 713-8) BASO % (test code = 0.3 % 706-2) GRAN MAT x10^3(ANC) 8.30 10*3/uL 1.88-7.09 H (test code = 1357066812) IMM GRAN x10^3 (test 0.06 10*3/uL 0-0.06 code = 4184598070) LYMPH x10^3 (test code 2.97 10*3/uL 1.32-3.29 = 731-0) MONO x10^3 (test code 0.50 10*3/uL 0.33-0.92 = 742-7) EOS x10^3 (test code = 0.23 10*3/uL 0.03-0.39 711-2) BASO x10^3 (test code 0.04 10*3/uL 0.01-0.07 = 704-7) Lab Interpretation Abnormal (test code = 03862-2) [id number] 22:58:55HISTORY: SOB. TECHNIQUE: Portable AP erect view of the chest is obtained. Comparison madewith 02/18/2016 study. FINDINGS: No acute pneumonia. No pneumothorax or pleural effusion orpulmonary congestion detected. Cardiac size is within normal limits. [place] of prominent left cervical rib. CONCLUSIONS:No signs of acute cardiopulmonary disease.[facility], Radiant Results Inft User - 05/27/2019 5:00 PM CSTHISTORY: SOB.TECHNIQUE: Portable AP erect view of the chest is obtained. Comparison madewith 02/18/2016study.FINDINGS: No acute pneumonia. No pneumothorax or pleural effusion orpulmonary congestion detected. Cardiac size is within normal limits. [place] of prominent left cervical rib.CONCLUSIONS: No signs of acute cardiopulmonary disease.[id number]43[facility]00 Test Item Value Reference Range Interpretation Comments POCT PREG (test code = 1605) Negative On board controls acceptable with yes C Line (test code = 3574) POCT PREG LOT # (test code = 3575) [id number] POCT PREG TEST DATE (test 12-02-20 code = 3576) Lab Interpretation (test code = Normal 03565-4) [facility]
[2022-01-24 18:20] LABS: Urine Blood Trace-intact (Negative); Urine Glucose Negative (Negative); Urine Protein Trace (Negative); Urine Specific Gravity >=1.030 (1.005-1.030); Urine pH 5.5 (5.0-7.0)
[2022-01-24 18:45] LABS: Absolute Lymphocytes (CBC) 2.4 K/uL (0.7-4.9); Lymphocytes % 26.7 % (15.3-44.8); MCV 78.9 fL (80-100); MPV 7.5 fL (7.6-11.3); RBC Red Blood Cell Count 4.56 M/uL (3.86-4.86)
[2022-01-24 18:54] LABS: Urine Mucus 1+ /HPF (None Seen)
[2022-01-24 19:12] LABS: Albumin 3.1 g/dL (3.4-5.0); Bilirubin Total 0.2 mg/dL (0.2-1.0); Potassium 3.5 mmol/L (3.5-5.1); Protein, Total 7.7 g/dL (6.4-8.2)
--- NOTE | 2022-01-24 19:12 | RAD REPORT ---
EXAM DESCRIPTION: US - Abdomen Exam Limited - 01/24/2022 6:03 pm CLINICAL HISTORY: right flank pain COMPARISON: Abdomen Pelvis W Contrast dated 12/20/2021 FINDINGS: Multiple gallstones are present filling the lumen of a partially contracted gallbladder. T here is no wall thickening or pericholecystic fluid. No common duct stone or biliary tree dilatation identified. IMPRESSION: Multi stone cholelithiasis. No sonographic findings of acute cholecystitis. No biliary tree abnormality.
[2022-01-24] MEDS ORDERED: KETOROLAC 30 MG/ML INJ ONE (19:21)
[2022-01-24] MEDS ORDERED: FAMOTIDINE 20 MG/2 ML VIAL IV ONE (19:21)
[2022-01-24] MEDS ORDERED: ONDANSETRON 4 MG/2 ML VIAL ONE (19:21)
--- NOTE | 2022-01-24 20:03 | RAD REPORT ---
EXAM DESCRIPTION: CT - Stone Protocol - 01/24/2022 7:43 pm CLINICAL HISTORY: right flank pain COMPARISON: <Comparisons> TECHNIQUE: Axial 3 mm thick images were obtained without oral or IV contrast. The [id number]-niua span s the entirety of the system including uppermost abdomen and lung bases. All CT scans are performed using dose optimization technique as appropriate and may include automated exposure control or mA/KV adjustment according to patient size. FINDINGS: There significant ring artifact present in the mid and lower pelvis accentuated by body stone bitus affects. No hydronephrosis is present and no obstructing ureteral calculi. No suspicious renal masses. Isodens e masses and pyelonephritis are not excluded on a stone protocol CT scan. No significant adrenal find ing. Urinary bladder is partially contracted. The contracted state and superimposed artifact limits a ssessment. No bladder calculi are seen. RN LVN structures cannot be adequately visualized. Imaged portions of the liver, spleen and pancreas show no suspicious findings on non-contrast imaging . No gallbladder or biliary tree abnormality identified. No suspicious bowel findings. No appendicitis. No active GI process seen. No hernia, mass or bulky lymphadenopathy noted. No free air, free fluid or inflammatory stranding. No significant bony abnormality. IMPRESSION: No hydronephrosis, obstructing calculus or acute finding seen. Isodense masses and pyelonephritis are not excluded on stone protocol technique. No acute GI findings identifiable. RN LVN structures are limited in assessment due substantial technical ring artifact and body habitus affects.
--- NOTE | 2022-01-24 20:04 | RAD REPORT ---
EXAM DESCRIPTION: RAD - Chest Single View - 01/24/2022 7:47 pm CLINICAL HISTORY: SOB COMPARISON: Two view chest 07/17/2021 TECHNIQUE: AP portable chest image was obtained 01/24/2022 7:47 pm . FINDINGS: Detail is limited by large body habitus. No dense consolidation or mass. Interstitial christopher sonia is not significantly different. Lung base interstitial infiltrate is doubtful but not entirely ex cluded. No significant failure or volume overload. Heart and vasculature are normal. No measurable pleural effusion and no pneumothorax. No acute bony abnormality seen. No acute aortic findings suspected. IMPRESSION: Limited portable study without acute cardiopulmonary finding.
[2022-01-24] MEDS ORDERED: LIDOCAINE VISCOUS 2% SOLN 15 ML UDC ONE (21:31)
[2022-01-24] MEDS ORDERED: DICYCLOMINE HCL 20 MG/2 ML AMP IM ONE (21:31)
[2022-01-24] MEDS ORDERED: MAGNES/ALUMIN/SIMET 30ML UCUP ONE (21:31)
--- NOTE | 2022-01-24 21:39 | ER ---
Nurse's Notes [facility] Name: Lorelei Bolaños Age: 36 yrs Sex: Female : 1985 Arrival Date: 01/24/2022 Time: 16:32 Bed Treatment Private MD: Diagnosis: Other cholelithiasis without obstruction Presentation: 01/24 17:11 Chief complaint: Patient states: vomiting, diarrhea, right flank pain that began 2-3 aa5 days ago. Urinary frequency and slight burning with urination. Coronavirus screen: nausea, vomiting. Ebola Screen: Patient denies travel to an Ebola-affected area in the 21 days before illness onset. Initial Sepsis Screen: Does the patient meet any 2 criteria? No. Patient's initial sepsis screen is negative. Does the patient have a suspected source of infection? No. Patient's initial sepsis screen is negative. Risk Assessment: Do you want to hurt yourself or someone else? Patient reports no desire to harm self or others. Onset of symptoms was January 2022. 17:11 Method Of Arrival: Ambulatory aa5 17:11 Acuity: DUTCH 3 aa5 Historical: - Allergies: 17:11 No Known Allergies; aa5 - PMHx: 17:11 Anxiety; Asthma; Bipolar disorder; Depression; Diabetes - NIDDM; Hypertensive disorder; aa5 - Immunization history:: Adult Immunizations up to date, Client reports having NOT received the Covid vaccine. - Social history:: Smoking status: unknown. Screenin:18 Abuse screen: Denies threats or abuse. Denies injuries from another. Nutritional lg3 screening: No deficits noted. Tuberculosis screening: No symptoms or risk factors identified. Fall Risk None identified. Assessment: 19:18 General: Appears in no apparent distress. uncomfortable, Behavior is calm, cooperative. lg3 Pain: Complains of pain in right upper quadrant and left upper quadrant, right flank. Neuro: No deficits noted. Level of Consciousness is awake, alert, obeys commands, Oriented to person, place, time, situation. Cardiovascular: No deficits noted. Denies chest pain, Rhythm is sinus rhythm. Respiratory: No deficits noted. Airway is patent Trachea midline Respiratory effort is even, unlabored, Respiratory pattern is regular, symmetrical, Breath sounds are clear bilaterally. GI: No deficits noted. Abdomen is round non-distended, obese, Bowel sounds present X 4 quads. Abd is soft X 4 quads Abdomen is tender to palpation in right upper quadrant and left upper quadrant Reports upper abdominal pain, cramping, diarrhea, nausea. : Reports burning with urination, urgency, urinary frequency. EENT: No deficits noted. No signs and/or symptoms were reported regarding the EENT system. Derm: No deficits noted. No signs and/or symptoms reported regarding the dermatologic system. Skin is intact, is healthy with good turgor, Skin is dry, Skin is normal. Musculoskeletal: No deficits noted. No signs and/or symptoms reported regarding the musculoskeletal system. Circulation, motion, and sensation intact. Range of motion: intact in all extremities. 21:18 Reassessment: Patient appears in no apparent distress at this time. No changes from lg3 previously documented assessment. Patient and/or family updated on plan of care and expected duration. Pain level reassessed. Patient is alert, oriented x 3, equal unlabored respirations, skin warm/dry/pink. 22:32 Reassessment: Patient appears in no apparent distress at this time. No changes from lg3 previously documented assessment. Patient and/or family updated on plan of care and expected duration. Pain level reassessed. Patient is alert, oriented x 3, equal unlabored respirations, skin warm/dry/pink. Patient states symptoms have improved. Vital Signs: 17:11 BP 134 / 77; Pulse 86; Resp 18 S; Temp 97.0(TE); Pulse Ox 98% on R/A; aa5 17:16 Weight 162.39 kg (M); aa5 22:33 BP 128 / 78; Pulse 82; Resp 18 S; Pulse Ox 99% on R/A; lg3 ED Course: 16:32 Patient arrived in ED. rg4 16:32 Charles Win PA is PHCP. cp 16:32 Charles Scales MD is Attending Physician. cp 17:11 Arm band placed on. aa5 17:12 Triage completed. aa5 18:05 Abdomen Limited US In Process Unspecified. EDMS 18:21 Initial lab(s) drawn, by ED staff, sent to lab. Inserted saline lock: 20 gauge in right em1 antecubital area, using aseptic technique. Blood collected. 19:08 Nadia Henry, RN is Primary Nurse. lg3 19:18 Patient has correct armband on for positive identification. Bed in low position. Call lg3 light in reach. Side rails up X 1. Client placed on continuous cardiac and pulse oximetry monitoring. NIBP monitoring applied. Door closed. Noise minimized. Warm blanket given. 19:44 CT Stone Protocol In Process Unspecified. EDMS 19:49 XRAY Chest (1 view) In Process Unspecified. EDMS 21:38 Juan Bearden MD is Referral Physician. cp 22:33 No provider procedures requiring assistance completed. IV discontinued, intact, lg3 bleeding controlled, No redness/swelling at site. Pressure dressing applied. Administered Medications: 19:17 Drug: Pepcid (famotidine) 20 mg Route: IVP; Site: right antecubital; lg3 21:18 Follow up: Response: No adverse reaction lg3 19:17 Drug: Ketorolac 30 mg Route: IVP; Site: right antecubital; lg3 21:18 Follow up: Response: No adverse reaction; Marked relief of symptoms lg3 19:18 Drug: Zofran (Ondansetron) 4 mg Route: IVP; Site: right antecubital; lg3 21:18 Follow up: Response: No adverse reaction lg3 21:36 Drug: Dicyclomine 20 mg Route: IM; Site: left deltoid; lg3 22:32 Follow up: Response: No adverse reaction lg3 21:36 Drug: GI Cocktail without - (Maalox Suspension 30 ml, Lidocaine Liquid 2 % 15 lg3 ml) Route: PO; 22:32 Follow up: Response: No adverse reaction lg3 Medication: 22:33 VIS not applicable for this client. lg3 Outcome: 21:38 Discharge ordered by MD. cp 22:33 Discharged to home ambulatory. lg3 22:33 Condition: good 22:33 Discharge instructions given to patient, Instructed on discharge instructions, follow up and referral plans. medication usage, Demonstrated understanding of instructions, follow-up care, medications, Prescriptions given X 3. 22:34 Patient left the ED. lg3 Signatures: Dispatcher [employer] Dante Tom em1 Della Russ, RN RN aa5 Charles Win PA PA Cece Cuellar rg4 Nadia Henry RN RN lg3 Corrections: (The following items were deleted from the chart) 17:13 17:11 Chief complaint: Patient states: vomiting, diarrhea, right flank pain that began aa5 2-3 days ago. aa5 17:16 17:11 Pulse 86bpm; Resp 18bpm; Spontaneous; Pulse Ox 98% RA; Temp 97.0F Temporal; aa5 aa5
--- NOTE | 2022-01-24 21:39 | EDPHYS ---
Physician Documentation [facility] Name: Lorelei Bolaños Age: 36 yrs Sex: Female : 1985 Arrival Date: 01/24/2022 Time: 16:32 Bed Treatment Private MD: ED Physician Charles Scales HPI: 01/24 17:30 This 36 yrs old Female presents to ER via Ambulatory with complaints of cp Breathing Difficulty, Flank Pain. 17:30 The patient complains of pain in the right flank. The pain radiates to the mid back cp area. Onset: The symptoms/episode began/occurred 3 day(s) ago. 17:30 Modifying factors: the symptoms are aggravated by movement, deep breath. Associated cp signs and symptoms: Pertinent positives: diarrhea, headache, vomiting, shortness of breath, Pertinent negatives: dysuria, fever, hematuria, pain radiating to the lower extremities. Severity of pain: in the emergency department the pain is unchanged despite home interventions. Historical: - Allergies: 17:11 No Known Allergies; aa5 - PMHx: 17:11 Anxiety; Asthma; Bipolar disorder; Depression; Diabetes - NIDDM; Hypertensive disorder; aa5 - Immunization history:: Adult Immunizations up to date, Client reports having NOT received the Covid vaccine. - Social history:: Smoking status: unknown. ROS: 17:35 Constitutional: Negative for body aches, chills, fever, poor PO intake. cp 17:35 Eyes: Negative for injury, pain, redness, and discharge. cp 17:35 ENT: Negative for drainage from ear(s), ear pain, sore throat, difficulty swallowing, difficulty handling secretions. 17:35 Cardiovascular: Negative for chest pain, edema, palpitations. 17:35 Respiratory: Positive for shortness of breath, Negative for cough, wheezing. 17:35 Abdomen/GI: Positive for abdominal pain, nausea, vomiting, diarrhea, Negative for constipation, anorexia, black/tarry stool, rectal bleeding. 17:35 Back: Positive for radiated pain, of the mid back area. 17:35 : Negative for urinary symptoms. 17:35 Skin: Negative for cellulitis, rash. 17:35 Neuro: Negative for altered mental status, headache, weakness. 17:35 All other systems are negative. Exam: 17:45 Constitutional: The patient appears in no acute distress, alert, awake, cp non-diaphoretic, non-toxic, well developed, well nourished, morbidly obese 17:45 Head/Face: Normocephalic, atraumatic. cp 17:45 Eyes: Periorbital structures: appear normal, Conjunctiva: normal, no exudate, no injection, Sclera: no appreciated abnormality, Lids and lashes: appear normal, bilaterally. 17:45 ENT: External ear(s): are unremarkable, Nose: is normal, Mouth: Lips: moist, Oral mucosa: pink and intact, moist, Posterior pharynx: Airway: no evidence of obstruction, patent. 17:45 Neck: ROM/movement: is normal, is supple, without pain, no range of motions limitations. 17:45 Chest/axilla: Inspection: normal, Palpation: is normal, no crepitus, no tenderness. 17:45 Cardiovascular: Rate: normal, Rhythm: regular, Edema: is not appreciated, JVD: is not appreciated. 17:45 Respiratory: the patient does not display signs of respiratory distress, Respirations: normal, no use of accessory muscles, no retractions, labored breathing, is not present, Breath sounds: are clear throughout, no decreased breath sounds, no stridor, no wheezing. 17:45 Abdomen/GI: Inspection: obese Bowel sounds: active, all quadrants, Palpation: soft, in all quadrants, mild abdominal tenderness, in the epigastric area and right upper quadrant, moderate abdominal tenderness, in the upper posterior aspect of right lateral abdomen and upper anterior aspect of right lateral abdomen, rebound tenderness, is not appreciated, voluntary guarding. 17:45 Back: pain, that is moderate, of the mid back area, ROM is normal, Straight leg raises: of both lower extremities does not illicit pain. 17:45 Skin: cellulitis, is not appreciated, no rash present. 17:45 Neuro: Orientation: to person, place \T\ time. Mentation: is normal, Motor: moves all fours, strength is normal, Sensation: is normal. Vital Signs: 17:11 BP 134 / 77; Pulse 86; Resp 18 S; Temp 97.0(TE); Pulse Ox 98% on R/A; aa5 17:16 Weight 162.39 kg (M); aa5 22:33 BP 128 / 78; Pulse 82; Resp 18 S; Pulse Ox 99% on R/A; lg3 MDM: 17:30 Differential diagnosis: nephrolithiasis, pyelonephritis, UTI, pancreatitis, cp cholelithiasis, cholecystitis. 17:48 Patient medically screened. alex 20:41 Data reviewed: vital signs, nurses notes, lab test result(s), radiologic studies, CT cp scan, plain films, ultrasound. Test interpretation: by ED physician or midlevel provider: plain radiologic studies. Counseling: I had a detailed discussion with the patient and/or guardian regarding: the historical points, exam findings, and any diagnostic results supporting the discharge/admit diagnosis, lab results, radiology results, the need for outpatient follow up, for definitive care, a general surgeon, to return to the emergency department if symptoms worsen or persist or if there are any questions or concerns that arise at home. Special discussion: Based on the patient's Hx, exam, and Dx evaluation, there is no indication for emergent surgery or inpatient Tx. It is understood by the patient/guardian that if the Sx's persist or worsen they need to return immediately for re-evaluation. ED course: VSS. Discussed results of labs and radiology studies. Will discharge to home for continued monitoring with recommendation to f/u with general surgery. 01/24 17:20 Order name: CBC with Diff; Complete Time: 19:13 01/24 19:13 Interpretation: Normal except: MCV 78.9; MCH 26.3; RDW 16.3; MPV 7.5; EOSINOPHIL % 9.5; cp EOSA 0.9. 01/24 17:20 Order name: CMP; Complete Time: 19:13 01/24 20:22 Interpretation: Reviewed. 01/24 17:20 Order name: Lipase; Complete Time: 19:13 01/24 17:20 Order name: Urine Microscopic Only; Complete Time: 19:13 01/24 18:21 Order name: Urine Dipstick-Ancillary; Complete Time: 18:37 EDMS 01/24 19:14 Interpretation: Normal except: UBLD Trace-intact; UPROT Trace; UESTR Trace. 01/24 17:18 Order name: CT Stone Protocol; Complete Time: 20:20 01/24 20:22 Interpretation: Report reviewed. 01/24 17:20 Order name: Abdomen Limited US; Complete Time: 19:15 01/24 19:15 Interpretation: Report reviewed. 01/24 19:15 Order name: XRAY Chest (1 view); Complete Time: 20:20 cp 01/24 20:22 Interpretation: Report review. 01/24 17:20 Order name: IV Saline Lock; Complete Time: 19:10 cp 01/24 17:20 Order name: Labs collected and sent; Complete Time: 19:07 cp 01/24 17:20 Order name: Urine Dipstick-Ancillary (obtain specimen); Complete Time: 19:07 cp 01/24 17:20 Order name: Urine Test (obtain specimen); Complete Time: 19:07 cp Administered Medications: 19:17 Drug: Pepcid (famotidine) 20 mg Route: IVP; Site: right antecubital; lg3 21:18 Follow up: Response: No adverse reaction lg3 19:17 Drug: Ketorolac 30 mg Route: IVP; Site: right antecubital; lg3 21:18 Follow up: Response: No adverse reaction; Marked relief of symptoms lg3 19:18 Drug: Zofran (Ondansetron) 4 mg Route: IVP; Site: right antecubital; lg3 21:18 Follow up: Response: No adverse reaction lg3 21:36 Drug: Dicyclomine 20 mg Route: IM; Site: left deltoid; lg3 22:32 Follow up: Response: No adverse reaction lg3 21:36 Drug: GI Cocktail without - (Maalox Suspension 30 ml, Lidocaine Liquid 2 % 15 lg3 ml) Route: PO; 22:32 Follow up: Response: No adverse reaction lg3 Disposition Summary: 01/24/22 21:38 Discharge Ordered Location: Home cp Problem: new cp Symptoms: have improved cp Condition: Stable cp Diagnosis - Other cholelithiasis without obstruction cp Followup: cp - With: Juan Bearden MD - When: 1 - 2 days - Reason: Recheck today's complaints Discharge Instructions: - Discharge Summary Sheet cp - Cholelithiasis cp Forms: - Medication Reconciliation Form cp - Thank You Letter cp - Antibiotic Education cp - Prescription Opioid Use cp Prescriptions: - Ibuprofen 800 mg Oral Tablet - take 1 tablet by ORAL route every 8 hours As needed take with food; 30 tablet; cp Refills: 0, Product Selection Permitted - Zofran 4 mg Oral Tablet - take 1 tablet by ORAL route every 12 hours As needed; 20 tablet; Refills: 0, cp Product Selection Permitted - dicyclomine 20 mg Oral Tablet - take 1 tablet by ORAL route 4 times per day; 30 tablet; Refills: 0, Product cp Selection Permitted Signatures: Dispatcher [employer] Charles Nam MD MD cha Calderon, Audri, RN RN aa5 Charles Win PA PA cp Gibson, Lacie RN RN lg3
[2022-01-26 09:35] VITALS: TEMP 97
[2022-01-26 09:42] VITALS: BP 128/78; O2SAT 99
== END 2022-01-24 22:34 | disposition home or self-care (01) ==
LOC: ER 16:29
DX: K80.80 Other cholelithiasis without obstruction (principal)
CPT/HCPCS: 85025; 36415; 83690; 80053; 76377; 74176; 71045; 76705; 96375; 96372; 96374; 99284; J0500; J2405; 81003; 81015

== ENCOUNTER 2022-09-24 20:05 | Emergency (ER) | payer OTHER ==
--- OUTSIDE RECORDS SUMMARY | 2022-09-24 20:10 | XMS REPORT | Continuity of Care Document ---
:1985 Author Organization [facility] t Address [address] [facility] [address] [place] [address] Care Team Providers Name Role Phone PCP, PATIENT DOES NOT HAVE A Primary Care Physician Unavaila BHAVIN Harrison Attending Clinician Unavailable Bhavin Pichardo MD Attending Clinician JULIO CÉSAR COLEMAN Attending Clinician Unavailable Julio César Pang Attending Clinician ALMITA VARGAS Attending Clinician Unavailable Almita Renteria S Attending Clinician RUBY PERRY Attending Clinician Unavailable Ruby Zambrano Attending Clinician Doctor Unassigned, [place] Attending Clinician Unavailable JULIO CÉSAR COLEMAN Admitting Clinician Unavailable RUBY PERRY Admitting Clinician Unavailable BHAVIN PICHARDO Admitting Clinician Unavailable Payers Payer Name Policy Type Policy Number Effective Date Expiration Date S charles MEDICAID PENDING PENDING 2021 00:00:00 [facility] [place] [id number] 2021 WOMEN 00:00:00 Problems Condition Condition Condition [...] Date Date Clinician NO KNOWN Drug Active [facility] ALLERGIE Class ity of S [facility] Social History Social Habit Start Date Stop Date Quantity Comments Source History of Cigarette Smoker Universi ty of tobacco use [facility] Exposure to Not sure [facility] of SARS-CoV-2 [facility] (event) [place] Alcohol intake 2021-05-09 2021-05-09 0 /d University of 00:00:00 00:00:00 [facility] Tobacco use and 2016-02-18 2016-02-18 Never used Universit y of exposure 00:00:00 00:00:00 [facility] Sex Ass[birth year] At [birth year] Universit y of 00:00:00 00:00:00 [facility] Smoking Status Start Date Stop Date Source Light tobacco smoker 2016-02-18 00:00:00 [facility] ity of [facility] Medications Ordered Filled Start Stop Current Ordering Indication Dosage Frequency Signature Comments Components Source Medication Medication Date Date Medication? Clinician (SIG) Name Name benzonatate Yes [id number] 100mg Take 1 Univers 100 mg 3-09 capsule by ity of capsule 00:00: mouth 3 [place] 00 (three) Medical times [place] daily as needed for Cough. azithromyci Yes [id number] 250mg Take 1 Univers n 3-09 tablet by ity of (ZITHROMAX 00:00: mouth [place] Z-SUSAN) 250 00 daily. Medical mg tablet Take 500 Branch mg day 1, then 250 mg days 2 to 5. montelukast Yes [id number] 10mg Take 1 Univers 10 mg 3-09 tablet by ity of tablet 00:00: mouth [place] 00 every 24 Medical (twenty-fo Branch ur) hours as needed (symptoms) . loratadine- 0 Yes [id number] 1{tbl} Take 1 Univers pseudoephed 3-09 tablet by ity of rine 00:00: mouth (CLARITIN-D 00 daily. Medica l 24 HOUR) Branch 10-240 mg per 24 hr tablet albuterol 0 Yes [id number] 2{puff} Inhale 2 Univers 90 1-05 Puffs ity of mcg/actuati 00:00: every 4 [place] as on inhaler 00 (four) Medical hours as Branch needed for Wheezing or Shortness of Breath. benzonatate Yes [id number] 100mg Take 1 Univers 100 mg 1-05 capsule by ity of capsule 00:00: mouth (three) Medical times Branch daily as needed for Cough. bromphenira 0 Yes [id number] 5mL Take 5 mL Univers mine-pseudo 1-05 by mouth 4 it y of ephedrine-D 00:00: ([place] (BROMFED 00 times Medical DM) 2-30-10 daily as Bran ch mg/5 mL needed for syrup Cough. albuterol Yes [id number] 2{puff} Inhale 2 Univers 90 1-05 Puffs ity of mcg/actuati 00:00: every 4 [place] as on inhaler 00 (four) Medical hours as Branch needed for Wheezing or Shortness of Breath. benzonatate 0 Yes [id number] 100mg Take 1 Univers 100 mg 1-05 capsule by ity of capsule 00:00: mouth (three) Medical times Branch daily as needed for Cough. bromphenira 0 Yes [id number] 5mL Take 5 mL Univers mine-pseudo 1-05 [...] for Other (muscle spasm). predniSONE 2020-05- No [id number] 40mg Take 2 U nivers 20 mg [...] ity o f (PF)) 21:00: 22:32 [place], [place] injection 00 :00 ONCE, 1 Medical 50 mcg dose, Wed Branch 05/17/20 at 1500, Routine ibuprofen Yes [id number] 600mg Take 1 Univers 600 mg 1-13 100 tablet by ity of tablet 00:00: mouth [place] 00 every 6 Medical (six) Branch hours as needed for Pain (scale 4-6). ibuprofen Yes [id number] 600mg Take 1 Univers 600 mg 1-13 100 tablet by ity of tablet 00:00: mouth [place] 00 every 6 Medical (six) Branch hours as needed for Pain (scale 4-6). ibuprofen Yes [id number] 600mg Take 1 Univers 600 mg 1-13 100 tablet by ity of tablet 00:00: mouth [place] 00 every 6 Medical (six) Branch hours as needed for Pain (scale 4-6). ibuprofen 0 Yes [id number] 600mg Take 1 Univers 600 mg 1-13 100 tablet by ity of tablet 00:00: mouth [place] 00 every 6 Medical (six) Branch hours as needed for Pain (scale 4-6). ibuprofen Yes [id number] 600mg Take 1 Univers 600 mg 1-13 [...] tablet at 0015, CARLINE penicillin 2019-05- No [id number] 500mg Take 1 Univers v potassium 06-24 [...] :00 Infusion, Medical ONCE, 1 Branch dose, [facility] 01/03/20 at 1530, STAT ketorolac 2019- No 30mg 30 mg, Unive rs (TORADOL) 01-02 Slow IV ity of injection 20:30: 19:50 Push, [place] 30 mg 00 :00 ONCE, 1 Medical dose, [facility] 01/03/20 at 1530, CARLINE
Fa culty member [...] dose, Lety Medica l mL) 05/27/19 at [place] injection 1845, 120 mL Routine acetaminoph 2015-05 [...] Immunizations Ordered Filled Immunization Date Status Comments [facility] Immunization Name Name Influenza Virus 2016-02-19 Completed Universit y of Vaccine Quad IM 3+ 00:00:00 [facility] Influenza Virus 2016-02-19 Completed Universit y of Vaccine Quad IM 3+ 00:00:00 [facility] Influenza Virus 2016-02-19 Completed Universit y of Vaccine Quad IM 3+ 00:00:00 [facility] Influenza Virus 2016-02-19 Completed Universit y of Vaccine Quad IM 3+ 00:00:00 [facility] Influenza Virus 2016-02-19 Completed Universit y of Vaccine Quad IM 3+ 00:00:00 [facility] Branch Influenza Virus 2016-02-19 Completed Universit y of Vaccine Quad IM 3+ 00:00:00 [facility] Branch Influenza Virus 2016-02-19 Completed Universit y of Vaccine Quad IM 3+ 00:00:00 [facility] Branch Influenza Virus 2016-02-19 Completed Universit y of Vaccine Quad IM 3+ 00:00:00 [facility] Branch Influenza Virus 2016-02-19 Completed Universit y of Vaccine Quad IM 3+ 00:00:00 [facility] Branch Influenza Virus 2016-02-19 Completed Universit y of Vaccine Quad IM 3+ 00:00:00 [facility] Vital Signs Vital Name Observation Time Observation Value Comments Source Systolic blood 2021-07-12 01:00:00 139 mm[Hg] Univer sity of pressure [facility] Diastolic blood 2021-07-12 01:00:00 83 mm[Hg] Unive rsity of pressure [facility] Heart rate 2021-07-12 01:00:00 85 /min [facility] Body temperature 2021-07-12 01:00:00 36.94 Rohini [facility] Res[facility] rate 2021-07-12 01:00:00 18 /min [facility] Body height 2021-07-12 01:00:00 149.9 cm [facility] Body weight 2021-07-12 01:00:00 129.729 kg [facility] BMI 2021-07-12 01:00:00 57.76 kg/m2 [facility] Oxygen saturation in 2021-07-12 01:00:00 99 /min [facility] Arterial blood by [facility] Pulse oximetry Branch Systolic blood 2021-05-10 03:19:00 149 mm[Hg] Univer sity of pressure [facility] Diastolic blood 2021-05-10 03:19:00 86 mm[Hg] Unive rsity of pressure [facility] Heart rate 2021-05-10 03:19:00 98 /min Universi ty [facility] Body temperature 2021-05-10 03:19:00 37.22 Rohini [facility] Respiratory rate 2021-05-10 03:19:00 18 /min Univ ersity of [place] [facility] Oxygen saturation in 2021-05-10 03:19:00 97 /min University of Arterial blood by [facility] norberto Pulse oximetry Branch Systolic blood 2021-04-04 03:16:24 116 mm[Hg] Univer sity of pressure [place] [facility] Diastolic blood 2021-04-04 03:16:24 64 mm[Hg] Unive rsity of pressure [place] [facility] Heart rate 2021-04-04 03:16:24 77 /min Universi ty of [place] [facility] Respiratory rate 2021-04-04 03:16:24 18 /min Univ ersity of [place] [facility] Oxygen saturation in 2021-04-04 03:16:24 96 /min University of Arterial blood by [facility] Pulse oximetry Branch Body temperature 2021-04-04 01:33:00 36.83 Rohini Univ ersity of [place] [facility] Body height 2021-04-04 01:33:00 149.9 cm Universi ty of [place] [facility] Body weight 2021-04-04 01:33:00 145.151 kg Universi ty of [place] [facility] BMI 2021-04-04 01:33:00 64.63 kg/m2 Universi ty of [place] [facility] Systolic blood 2021-03-08 06:03:00 142 mm[Hg] Univer sity of pressure [place] [facility] Diastolic blood 2021-03-08 06:03:00 80 mm[Hg] Unive rsity of pressure [place] [facility] Heart rate 2021-03-08 06:03:00 66 /min Universi ty of [place] [facility] Respiratory rate 2021-03-08 06:03:00 21 /min Univ ersity of [place] [facility] Oxygen saturation in 2021-03-08 06:03:00 100 /min University of Arterial blood by [facility] Pulse oximetry Branch Body temperature 2021-03-08 04:39:00 37.17 Rohini Univ ersity of [place] [facility] Body height 2021-03-08 04:39:00 149.9 cm Universi ty of [place] [facility] Body weight 2021-03-08 04:39:00 127.007 kg Universi ty of [place] [facility] BMI 2021-03-08 04:39:00 56.55 kg/m2 Universi ty of [place] [facility] Systolic blood 2020-05-17 22:30:00 99 mm[Hg] Univer sity of pressure [place] [facility] Diastolic blood 2020-05-17 22:30:00 54 mm[Hg] Unive rsity of pressure [place] [facility] Heart rate 2020-05-17 22:30:00 76 /min Universi ty of [place] [facility] Respiratory rate 2020-05-17 22:30:00 18 /min Univ ersity of [place] [facility] Oxygen saturation in 2020-05-17 22:30:00 100 /min University of Arterial blood by [facility] norberto Pulse oximetry Branch Body temperature 2020-05-17 19:53:00 36.5 Rohini Univ ersity of [place] [facility] Body weight 2020-05-17 19:53:00 127.007 kg Universi ty of [place] [facility] BMI 2020-05-17 19:53:00 56.55 kg/m2 Universi ty of [place] [facility] Systolic blood 2020-05-17 22:30:00 99 mm[Hg] Univer sity of pressure [place] [facility] Diastolic blood 2020-05-17 22:30:00 54 mm[Hg] Unive rsity of pressure [place] [facility] Heart rate 2020-05-17 22:30:00 76 /min Universi ty of [place] [facility] Respiratory rate 2020-05-17 22:30:00 18 /min Univ ersity of [place] [facility] Oxygen saturation in 2020-05-17 22:30:00 100 /min University of Arterial blood by [facility] norberto Pulse oximetry Branch Body temperature 2020-05-17 19:53:00 36.5 Rohini Univ ersity of [place] [facility] Body weight 2020-05-17 19:53:00 127.007 kg Universi ty of [place] [facility] BMI 2020-05-17 19:53:00 56.55 kg/m2 Universi ty of [place] [facility] Systolic blood 2020-04-24 04:53:00 158 mm[Hg] Univer sity of pressure [place] [facility] Diastolic blood 2020-04-24 04:53:00 69 mm[Hg] Unive rsity of pressure [place] [facility] Heart rate 2020-04-24 04:53:00 61 /min Universi ty of [place] [facility] Body temperature 2020-04-24 04:53:00 37.5 Rohini Univ ersity of [place] [facility] Respiratory rate 2020-04-24 04:53:00 20 /min Univ ersity of [place] [facility] Body weight 2020-04-24 04:53:00 127.007 kg Universi ty of [place] [facility] BMI 2020-04-24 04:53:00 56.55 kg/m2 Universi ty of [place] [facility] Oxygen saturation in 2020-04-24 04:53:00 100 /min University of Arterial blood by [facility] norberto Pulse oximetry Branch Systolic blood 2020-04-24 04:53:00 158 mm[Hg] Univer sity of pressure [place] [facility] Diastolic blood 2020-04-24 04:53:00 69 mm[Hg] Unive rsity of pressure [place] [facility] Heart rate 2020-04-24 04:53:00 61 /min Universi ty of [place] [facility] Body temperature 2020-04-24 04:53:00 37.5 Rohini Univ ersity of [place] [facility] Respiratory rate 2020-04-24 04:53:00 20 /min Univ ersity of [place] [facility] Body weight 2020-04-24 04:53:00 127.007 kg Universi ty of [place] [facility] BMI 2020-04-24 04:53:00 56.55 kg/m2 Universi ty of [place] [facility] Oxygen saturation in 2020-04-24 04:53:00 100 /min University of Arterial blood by [facility] Pulse oximetry Branch Body temperature 2020-01-03 21:00:05 36.44 Rohini Univ ersity of [place] [facility] Systolic blood 2020-01-03 20:20:00 127 mm[Hg] Univer sity of pressure [place] [facility] Diastolic blood 2020-01-03 20:20:00 68 mm[Hg] Unive rsity of pressure [place] [facility] Heart rate 2020-01-03 20:20:00 68 /min Universi ty of [place] [facility] Respiratory rate 2020-01-03 20:20:00 12 /min Univ ersity of [place] [facility] Oxygen saturation in 2020-01-03 20:20:00 99 /min University of Arterial blood by [facility] norberto Pulse oximetry Branch Body height 2020-01-03 17:01:00 149.9 cm Universi ty of [place] [facility] Body weight 2020-01-03 17:01:00 127.007 kg Universi ty of [place] [facility] BMI 2020-01-03 17:01:00 56.55 kg/m2 Universi ty of [place] [facility] Body temperature 2020-01-03 21:00:05 36.44 Rohini Univ ersity [facility] [place] [facility] Systolic blood 2020-01-03 20:20:00 127 mm[Hg] Univer sity of pressure [place] [facility] Diastolic blood 2020-01-03 20:20:00 68 mm[Hg] Unive rsity of pressure [place] [facility] Heart rate 2020-01-03 20:20:00 68 /min Universi ty of [place] [facility] Respiratory rate 2020-01-03 20:20:00 12 /min Univ ersity of [place] [facility] Oxygen saturation in 2020-01-03 20:20:00 99 /min University of Arterial blood by [place] [facility] norberto Pulse oximetry Branch Body height 2020-01-03 17:01:00 149.9 cm Universi ty of [place] [facility] Body weight 2020-01-03 17:01:00 127.007 kg Universi ty [facility] [place] [facility] BMI 2020-01-03 17:01:00 56.55 kg/m2 Universi ty of [place] [facility] Systolic blood 2019-10-14 18:30:00 134 mm[Hg] Univer sity of pressure [place] [facility] Diastolic blood 2019-10-14 18:30:00 72 mm[Hg] Unive rsity of pressure [place] [facility] Heart rate 2019-10-14 18:30:00 73 /min Universi ty of [place] [facility] Respiratory rate 2019-10-14 18:30:00 17 /min Univ ersity of [place] [facility] Oxygen saturation in 2019-10-14 18:30:00 97 /min University of Arterial blood by [facility] norberto Pulse oximetry Branch Body temperature 2019-10-14 15:46:00 36.67 Rohini Univ ersity [facility] [place] [facility] Body height 2019-10-14 15:46:00 152.4 cm Universi ty [facility] [place] [facility] Body weight 2019-10-14 15:46:00 127.007 kg [facility]i ty of [place] [facility] BMI 2019-10-14 15:46:00 54.68 kg/m2 Universi ty of [place] [facility] Systolic blood 2019-10-14 18:30:00 134 mm[Hg] Univer sity of pressure [place] [facility] Diastolic blood 2019-10-14 18:30:00 72 mm[Hg] Unive rsity of pressure [place] [facility] Heart rate 2019-10-14 18:30:00 73 /min Universi ty of [place] [facility] Respiratory rate 2019-10-14 18:30:00 17 /min Univ ersity of [place] [facility] Oxygen saturation in 2019-10-14 18:30:00 97 /min University of Arterial blood by [facility] Pulse oximetry Branch Body temperature 2019-10-14 15:46:00 36.67 Rohini Univ ersity [facility] [place] [facility] Body height 2019-10-14 15:46:00 152.4 cm Universi ty [facility] [place] [facility] Body weight 2019-10-14 15:46:00 127.007 kg [facility]i ty [facility] [place] [facility] BMI 2019-10-14 15:46:00 54.68 kg/m2 Universi ty of [place] [facility] Systolic blood 2019-05-28 00:40:30 132 mm[Hg] Univer sity of pressure [place] [facility] Diastolic blood 2019-05-28 00:40:30 80 mm[Hg] Unive rsity of pressure [place] [facility] Heart rate 2019-05-28 00:40:30 83 /min Universi ty of [place] [facility] Respiratory rate 2019-05-28 00:40:30 18 /min Univ ersity of [place] [facility] Oxygen saturation in 2019-05-28 00:40:30 99 /min University of Arterial blood by [facility] Pulse oximetry Branch Body temperature 2019-05-27 22:45:22 36.72 Rohini Univ [facility] [place] [facility] Body weight 2019-05-27 21:48:00 127.007 kg Universi ty [facility] [place] [facility] BMI 2019-05-27 21:48:00 54.68 kg/m2 Universi ty [facility] [place] [facility] Systolic blood 2019-05-28 00:40:30 132 mm[Hg] Univer sity of pressure [place] [facility] Diastolic blood 2019-05-28 00:40:30 80 mm[Hg] Unive rsity of pressure [place] [facility] Heart rate 2019-05-28 00:40:30 83 /min Universi ty [facility] [place] [facility] Respiratory rate 2019-05-28 00:40:30 18 /min Univ ersity of [place] [facility] Oxygen saturation in 2019-05-28 00:40:30 99 /min University of Arterial blood by [facility] Pulse oximetry Branch Body temperature 2019-05-27 22:45:22 36.72 Rohini Univ ers[facility] [place] [facility] Body weight 2019-05-27 21:48:00 127.007 [facility] BMI 2019-05-27 21:48:00 54.68 kg/m2 [facility] Procedures Procedure Date / Time Performing Clinician Source Performed RAPID STREP SCREEN FOR 2021-07-12 01:08:00 [facility] GROUP A Medical Branch RAPID INFLUENZA A/B 2021-07-12 01:08:00 Bhavin Pichardo [facility] COVID-19 (ID NOW RAPID 2021-07-12 01:08:00 [facility] TESTING) Medical Branch CONSENT/REFUSAL FOR 2021-07-12 00:40:57 Doctor Unassigned, No [facility] [place] DIAGNOSIS AND TREATMENT Name Medical Branch XR CHEST 2 VW 2021-05-10 04:05:14 Julio César Coleman [facility] NOTICE OF PRIVACY 2021-05-10 03:11:40 Doctor Unassigned, No [facility] [place] [facility] Name Medical Branch CONSENT/REFUSAL FOR 2021-05-10 03:08:35 Doctor Unassigned, No [facility] [place] DIAGNOSIS AND TREATMENT Name Medical [place] URINALYSIS 2021-04-04 02:04:00 Almita Vargas [facility] RAPID STREP SCREEN FOR 2021-04-04 02:04:00 Almita Vargas [facility] GROUP A Medical Branch CONSENT/REFUSAL FOR 2021-04-04 01:28:15 Doctor Unassigned, No [facility] [place] DIAGNOSIS AND TREATMENT Name Medical Branch XR KNEE 3 VW RIGHT 2021-03-08 05:41:41 Ruby [facility] XR RIBS 3 VW RIGHT 2021-03-08 05:41:41 Ruby [facility] URINALYSIS 2021-03-08 04:56:00 Ruby Perry [facility] POCT TEST 2021-03-08 04:55:00 Ruby [facility] CONSENT/REFUSAL FOR 2021-03-08 04:26:49 Doctor Unassigned, No [facility] [place] DIAGNOSIS AND TREATMENT Name Medical Branch CT ABDOMEN PELVIS W 2020-05-17 22:00:14 Julio César Coleman [facility] CONTRAST [facility] Branch URINALYSIS 2020-05-17 20:58:00 Julio César Coleman [facility] POCT TEST 2020-05-17 20:57:00 Julio César [facility] LIPASE 2020-05-17 20:11:00 Julio César Coleman [facility] TEST, SERUM 2020-05-17 20:11:00 Julio César Coleman [facility] COMP. METABOLIC PANEL 2020-05-17 20:11:00 Julio César Coleman [facility] ([id number]) Medical [place] CBC WITH DIFF 2020-05-17 20:11:00 Julio César Coleman [facility] NOTICE OF PRIVACY 2020-05-17 19:45:39 Doctor Unassigned, No [facility] CONSENT/REFUSAL FOR 2020-05-17 19:45:23 Doctor Unassigned, No [facility] [place] DIAGNOSIS AND TREATMENT Name [facility] POCT TEST 2020-04-24 05:17:00 Ruby Perry [facility] NOTICE OF PRIVACY 2020-04-24 04:47:03 Doctor Unassigned, No [facility] CONSENT/REFUSAL FOR 2020-04-24 04:46:22 Doctor Unassigned, No [facility] [place] DIAGNOSIS AND TREATMENT Name [facility] XR CHEST 1 VW 2020-01-03 18:47:04 Almita Vargas [facility] CT HEAD WO CONTRAST 2020-01-03 18:19:31 Almita Vargas [facility] BASIC METABOLIC PANEL 2020-01-03 18:05:00 Almita Vargas [facility] (NA, K, CL, CO2, Medical Branch GLUCOSE, BUN, CREATININE, CA) CBC WITH DIFF 2020-01-03 18:05:00 Almita Vargas [facility] URINALYSIS 2020-01-03 18:05:00 Almita Vargas [facility] POCT TEST 2020-01-03 17:59:00 Almita [facility]argas [facility] EKG-12 LEAD 2020-01-03 17:31:39 Almita Vargas [facility] NOTICE OF PRIVACY 2020-01-03 16:54:57 Doctor Unassigned, No [facility] PRACTICES Name Medical Branch CONSENT/REFUSAL FOR 2020-01-03 16:54:25 Doctor Unassigned, No [facility] DIAGNOSIS AND TREATMENT Name Medical Branch URINALYSIS 2019-10-14 17:14:00 Almita Vargas [facility] XR CHEST 1 VW COVID 2019-10-14 16:52:08 Bhavin Pichardo [facility] LIPASE 2019-10-14 16:17:00 Bhavin Pichardo [facility] TROPONIN I 2019-10-14 16:17:00 Bhavin Pichardo [facility] COMP. METABOLIC PANEL 2019-10-14 16:17:00 Bhavin Pichardo [facility] ([id number]) Medical Branch CBC WITH DIFFERENTIAL 2019-10-14 16:17:00 Bhavin Pichardo [facility] PROTHROMBIN TIME / INR 2019-10-14 16:17:00 Bhavin Pichardo [facility] ACTIVATED PARTIAL 2019-10-14 16:17:00 Bhavin Pichardo [facility] THRMPLAS ELEANOR [facility] COVID-19 (ID NOW RAPID 2019-10-14 16:17:00 Bhavin Pichardo [facility] TESTING) Medical Branch EKG-12 LEAD 2019-10-14 16:13:25 Bhavin Pichardo [facility] CT CHEST PULMONARY 2019-05-28 00:28:48 Almita Vargas [facility] ANGIOGRAM Medical Branch XR CHEST 1 VW 2019-05-27 22:57:06 Almita Vargas [facility] TROPONIN I 2019-05-27 22:56:00 Almita Vargas [facility] BASIC METABOLIC PANEL 2019-05-27 22:56:00 Almita Vargas [facility] (NA, K, CL, CO2, Medical Branch GLUCOSE, BUN, CREATININE, CA) CBC WITH DIFFERENTIAL 2019-05-27 22:56:00 Almita Vargas [facility] D-DIMER 2019-05-27 22:56:00 Almita Vargas [facility] POCT TEST 2019-05-27 22:43:00 [facility] EKG-12 LEAD 2019-05-27 22:28:03 Almita Vargas [facility] CONSENT/REFUSAL FOR 2019-05-27 21:41:13 Doctor Unassigned, No Un [facility] DIAGNOSIS AND TREATMENT Name Medical [place] Encounters Start End Encounter Admission Attending Care Care Encounter Source Date/Time Date/Time Type Type Clinicians Facility Department ID 2021-07-11 2021-07-11 [id number] Univers 19:09:00 20:23:00 BHAVIN [facility] 2021-07-11 2021-07-11 [facility] [id number] Univers 19:09:00 20:23:00 Bhavin [place] [id number] i ty of [place] [id number] [facility] [id number] [address] 2021-05-09 2021-05-09 Emergency X [facility] ERT [id number] Univers 21:23:00 22:43:00 JULIO CÉSAR [facility] 2021-05-09 2021-05-09 Emergency [facility] [id number] Univers 21:23:00 22:43:00 Julio César [place] [id number] i ty of [place] [id number] [facility] [id number] [address] 2021-04-03 2021-04-03 Emergency [facility] [id number] Univers 19:35:00 21:18:00 ALMITA [facility] 2021-04-03 2021-04-03 Emergency [facility] [id number] Univers 19:35:00 21:18:00 Almita [place] [id number] i ty of [place] [id number] [facility] [id number] [address] 2021-03-07 2021-03-08 Emergency X PERRY, [facility] ERT [id number] Univers 23:43:00 01:52:00 RUBY ity of [facility] 2021-03-07 2021-03-08 Emergency [place], [facility] 1.2.840.114 [id number] Univers 23:43:00 01:52:00 Ruby [place] 350.1.13.10 i ty of [place] 4.2.7.2.686 [facility] [id number] [address] 2020-05-17 2020-05-17 Emergency [place], [facility] 1.2.749.856 [id number] 191 13:51:00 17:08:00 Julio César R [place] 350.1.13.10 [place] 4.2.7.2.686 [place] [phone] [facility] 2020-05-17 2020-05-17 Emergency [place], [facility] 1.2.584.465 [id number] Univers 13:51:00 17:08:00 Julio César R [place] 350.1.13.10 i ty of [place] 4.2.7.2.686 [facility] [id number] [address] 2020-05-17 2020-05-17 Emergency X [facility] ERT [id number] Univers 13:45:00 13:45:00 ity [facility] 2020-04-23 2020-04-23 Emergency [place], [facility] 1.2.840.114 [id number] 22:55:00 23:39:00 Ruby [place] 350.1.13.10 [place] 4.2.7.2.686 [place] [id number] [facility] 2020-04-23 2020-04-23 Emergency [place], [facility] 1.2.840.114 [id number] Univers 22:55:00 23:39:00 Ruby [place] 350.1.13.10 i ty of [place] 4.2.7.2.686 [facility] [phone] [address] 2020-04-23 2020-04-23 Emergency X PERR[place], [facility] ERT [id number] Univers 22:55:00 22:55:00 RUBY weir [facility] 2020-01-03 2020-01-03 Emergency [facility] [id number] 12:08:00 16:01:00 Almita S [place] 350.1.13.10 [place] 4.2.7.2.686 [place] [id number] [facility] 2020-01-03 2020-01-03 Emergency [facility] 1.2.207.825 [id number] Univers 12:08:00 16:01:00 Almita S [place] 350.1.13.10 i ty of [place] 4.2.7.2.686 [facility] [id number] [address] 2020-01-03 2020-01-03 Emergency [facility] ERT [id number] Univers 12:08:00 12:08:00 ALMITA weir [facility] 2019-10-14 2019-10-14 [facility] 1.2.701.990 [id number] 10:47:05 13:44:00 Almita S [place] 350.1.13.10 [place] 4.2.7.2.686 [place] [id number] [facility] 2019-10-14 2019-10-14 Emergency [place] [facility] ERT [id number] Univers 10:47:05 13:44:00 ALMITA weir [facility] 2019-10-14 2019-10-14 [facility] 1.2.525.515 [id number] Univers 10:47:05 13:44:00 Almita S [place] 350.1.13.10 i ty of [place] 4.2.7.2.686 [facility] [id number] [address] 2019-05-27 2019-05-27 [facility] 1.2.423.489 [id number] 15:49:53 19:35:00 Almita S [place] 350.1.13.10 [place] 4.2.7.2.686 [place] [id number] [facility] 2019-05-27 2019-05-27 [facility] 1.2.746.302 [id number] [facility] 15:49:53 19:35:00 Almita [place] 350.1.13.10 i ty of [place] 4.2.7.2.686 [facility] [phone] [facility] [address] 2019-05-27 2019-05-27 Orders Doctor BRANDON 1.2.840.114 [id number] 00:00:00 00:00:00 Only Unassigned, YANETH 350.1.13.10 [place] [facility] 4.2.7.2.686 [id number] 009 2019-05-27 2019-05-27 Orders Doctor BRANDON 1.2.840.114 [id number] Univers 00:00:00 00:00:00 Only Unassigned, YANETH 350.1.13.10 ity of [facility] 4.2.7.2.686 [facility] [phone] [address] Results Test Description Test Time Test Comments Results Result Comments Source POCT TEST 2021-03-08 04:55:00 Test Item Value Reference Range Interpretation Comme nts POCT PREG (test code = 1605) negative On board controls acceptable with C Line (test code = 3574) present POCT PREG LOT # (test code = 3575) [id number] POCT PREG TEST DATE (test code = 3576) Lab Interpretation (test code = 70475-5) Normal [facility]OM[facility] PEL[facility] W [id number] 22:05:30CT Abdomen and Pelvis with intravenous contrast. [...] Unremarkable.CONCLUSION: No acute intra-abdominal or pelvic abnormalities detected.[facility]. METABOLIC PANEL (03719)2020-05-17 21:35:00 Test Item Value Reference Range Interpretation Comments NA (test code = 136 mmol/L 135-145 8350163262) K (test code = 4.5 mmol/L 3.5-5 0425790368) CL (test code = 103 mmol/L 98-108 8706193065) CO2 TOTAL (test code = 27 mmol/L 23-31 8725342805) AGAP (test code = 2-16 5827808831) BUN (test code = 16 mg/dL 7-23 2969174534) GLUCOSE (test code = 95 mg/dL 70-110 3949195719) CREATININE (test code = 0.55 mg/dL 0.5-1.04 9489321783) TOTAL BILI (test code = 0.9 mg/dL 0.1-1.3 9666411687) CALCIUM (test code = 8.3 mg/dL 8.6-10.6 L 2986784967) T PROTEIN (test code = 7.8 g/dL 6.3-8.2 1869730344) ALBUMIN (test code = 4.1 g/dL 3.5-5 4162868495) ALK PHOS (test code = 75 U/L 34-122 5966306795) ALTv (test code = 15 U/L 5-35 1742-6) AST(SGOT) (test code = 32 U/L 13-40 0005330248) eGFR Calculation mL/min/1.73m2 (Non-) (test code = 2758600230) eGFR Calculation mL/min/1.73m2 () (test code = 4556138097) MARCO (test code = MARCO) Association of [...] tests). Lab Interpretation Abnormal (test code = 76780-8) [facility]2021-01-13 21:34:00 Test Item Value Reference Range Interpretation Comments LIPASE (test code = 0330894244) 26 U/L 0-220 Lab Interpretation (test code = Normal 92536-0) [facility]URINALYSIS2021-01-13 21:29:00 Test Item Value Reference Range Interpretation Comments APPEARANCE (test code = Hazy Clear A 5981480709) COLOR (test code = Yellow Yellow 0772251935) PH (test code = 4.8-8.0 9569448316) SP GRAVITY (test code = 1.003-1.030 1562525214) GLU U QUAL (test code = Normal Normal 0063995066) BLOOD (test code = 3+ Negative A 4388824492) KETONES (test code = Negative Negative 8204425363) PROTEIN (test code = 30 mg/dL Negative A 2887-8) UROBILIN (test code = Normal Normal 1620393905) BILIRUBIN (test code = Negative Negative 1001555718) NITRITE (test code = Negative Negative 5946396556) LEUK ROBERTO (test code = 250/uL Negative A 0019970747) RBC/HPF (test code = See_Comment H [Autom ated message] 2799876414) The system Angella Joy generated this result transmitted ref erence range: 0 - 3 HP F. The reference range was not used to int erpret this result as normal/abnormal . WBC/HPF (test code = See_Comment H [Autom ated message] 8069537970) The system Angella Joy generated this result transmitted ref erence range: 0 - 5 HP F. The reference range was not used to int erpret this result as normal/abnormal . BACTERIA (test code = Negative Negative 4516815217) MUCOUS (test code = Marked Negative LPF A 6848406240) SQ EPITH (test code = HPF 0560137625) Lab Interpretation (test Abnormal code = 84203-9) [facility], [id number] 21:21:00 Test Item Value Reference Range Interpretation Comments PREG SERUM (test code Negative = 5439387656) MARCO (test code = MARCO) Less than 10 IU/L. ?If low titer or ectopic is suspected, resubmit specimen in 48-72 hours. [facility] TylerPOCT [id number] 20:57:00 Test Item Value Reference Range Interpretation Comments POCT PREG (test code = 1605) negative On board controls acceptable with present C Line (test code = 3574) POCT PREG LOT # (test code = 3575) [id number] POCT PREG TEST DATE (test 01/02/2022 code = 3576) Lab Interpretation (test code = Normal 67674-0) [facility] TylerCB WITH [id number] 20:33:00 Test Item Value Reference Range Interpretation Comments WBC (test code = See_Comment [Automated 1790-2) message] The sy stem which generated this [...] RDW-SD (test code = 45.9 fL 39-49.9 47247-3) RDW-CV (test code = 15.3 % 12-15.5 788-0) PLT (test code = See_Comment H [Automated 777-3) message] The sy stem which generated this result transmitted reference range : 166 - 358 10*3/ ?L. The reference r rupesh was not used to interpret this result as normal/abnormal . MPV (test code = 9.9 fL 9.5-12.9 22816-6) NRBC/100 WBC (test See_Comment [Automat ed code = 0413308997) message] The system which generated this result transmitted reference range : 0.0 - 10.0 /100 WBCs. The refer ence range was not u sed to interpret th is result as normal/abnormal . NRBC x10^3 (test code <0.01 See_Comment [Auto mated = 4115454897) message] The s ystem which generated this result transmitted reference range : 10*3/?L. The reference range was not used to interpret this result as normal/abnormal . GRAN MAT (NEUT) % 66.2 % (test code = 770-8) IMM GRAN % (test code 0.30 % = 5171766478) LYMPH % (test code = 26.8 % 736-9) MONO % (test code = 4.6 % 5905-5) EOS % (test code = 1.4 % 713-8) BASO % (test code = 0.7 % 706-2) GRAN MAT x10^3(ANC) 5.88 10*3/uL 1.88-7.09 (test code = 9855517595) IMM GRAN x10^3 (test 0.03 10*3/uL 0-0.06 code = 3589328862) LYMPH x10^3 (test code 2.38 10*3/uL 1.32-3.29 = 731-0) MONO x10^3 (test code 0.41 10*3/uL 0.33-0.92 = 742-7) EOS x10^3 (test code = 0.12 10*3/uL 0.03-0.39 711-2) BASO x10^3 (test code 0.06 10*3/uL 0.01-0.07 = 704-7) Lab Interpretation Abnormal (test code = 84565-3) [facility] TylerPO[facility] [id number] 05:17:00 Test Item Value Reference Range Interpretation Comments POCT PREG (test code = 1605) negative On board controls acceptable with present C Line (test code = 3574) POCT PREG LOT # (test code = 3575) [id number] POCT PREG TEST DATE (test 2021-09-01 code = 3576) Lab Interpretation (test code = Normal 57477-3) [facility] CHEST 1 [id number] 18:56:37 No acute cardiopulmonary abnormality. Preliminary Report [...] reviewed this study and agree with the abovereport.[facility] TylerCT HEAD WO [id number] 18:41:07 No acute intracranial hemorrhage or mass [...] report.[facility] METABOLIC PANEL (NA, K, CL, CO2, GLUCOSE, BUN, CREATININE, CA)2020-01-03 18:30:00 Test Item Value Reference Range Interpretation Comments NA (test code = 137 mmol/L 135-145 8095348599) K (test code = 4.0 mmol/L 3.5-5 4693488530) CL (test code = 105 mmol/L 98-108 0959799922) CO2 TOTAL (test code = 28 mmol/L 23-31 7178125127) AGAP (test code = 2-16 9130867757) BUN (test code = 15 mg/dL 7-23 1199168018) GLUCOSE (test code = 89 mg/dL 70-110 8739443907) CREATININE (test code 0.52 mg/dL 0.5-1.04 = 5125404264) CALCIUM (test code = 8.6 mg/dL 8.6-10.6 8248702532) eGFR Calculation mL/min/1.73m2 (Non-) (test code = 2152581804) eGFR Calculation mL/min/1.73m2 () (test code = 1986032202) MARCO (test code = MARCO) Association of [...] or urine or abnormalities in imaging tests). [facility] WITH [id number] 18:27:00 Test Item Value Reference Range Interpretation [...] RDW-SD (test code = 49.1 fL 39-49.9 07321-0) RDW-CV (test code = 16.1 % 12-15.5 H 788-0) PLT (test code = See_Comment [Automated 777-3) message] The sy stem which generated this result transmitted reference range : 166 - 358 10*3/ ?L. The reference r rupesh was not used to interpret this result as normal/abnormal . MPV (test code = 10.1 fL 9.5-12.9 01626-4) NRBC/100 WBC (test See_Comment [Automat ed code = 1860589746) message] The system which generated this result transmitted reference range : 0.0 - 10.0 /100 WBCs. The refer ence range was not u sed to interpret th is result as normal/abnormal . NRBC x10^3 (test code <0.01 See_Comment [Auto mated = 0760800247) message] The s ystem which generated this result transmitted reference range : 10*3/?L. The reference range was not used to interpret this result as normal/abnormal . GRAN MAT (NEUT) % 65.7 % (test code = 770-8) IMM GRAN % (test code 0.50 % = 7700729331) LYMPH % (test code = 26.6 % 736-9) MONO % (test code = 4.9 % 5905-5) EOS % (test code = 1.9 % 713-8) BASO % (test code = 0.4 % 706-2) GRAN MAT x10^3(ANC) 6.23 10*3/uL 1.88-7.09 (test code = 9358940220) IMM GRAN x10^3 (test 0.05 10*3/uL 0-0.06 code = 2184114074) LYMPH x10^3 (test code 2.53 10*3/uL 1.32-3.29 = 731-0) MONO x10^3 (test code 0.47 10*3/uL 0.33-0.92 = 742-7) EOS x10^3 (test code = 0.18 10*3/uL 0.03-0.39 711-2) BASO x10^3 (test code 0.04 10*3/uL 0.01-0.07 = 704-7) Lab Interpretation Abnormal (test code = 68794-4) [facility]INALYSIS2020-08-31 18:22:00 Test Item Value Reference Range Interpretation Comments APPEARANCE (test code = Clear Clear 6688403611) COLOR (test code = Yellow Yellow 3904441961) PH (test code = 4.8-8.0 2135168970) SP GRAVITY (test code = 1.003-1.030 2195832228) GLU U QUAL (test code = Normal Normal 4526988035) BLOOD (test code = Negative Negative 4100743431) KETONES (test code = Negative Negative 8968591732) PROTEIN (test code = Negative Negative 2887-8) UROBILIN (test code = Normal Normal 9153132232) BILIRUBIN (test code = Negative Negative 7709382834) NITRITE (test code = Negative Negative 3682091932) LEUK ROBERTO (test code = Negative Negative 5207553316) RBC/HPF (test code = See_Comment H [Autom ated message] 8517693051) The system Angella Joy generated this result transmitted ref erence range: 0 - 3 HP F. The reference range was not used to int erpret this result as normal/abnormal . WBC/HPF (test code = See_Comment [Autom ated message] 4180623723) The system Angella Joy generated this result transmitted ref erence range: 0 - 5 HP F. The reference range was not used to int erpret this result as normal/abnormal . BACTERIA (test code = Few Negative A 4365004719) MUCOUS (test code = Slight Negative LPF A 0537657205) SQ EPITH (test code = HPF 1110067638) Lab Interpretation (test Abnormal code = 85709-2) [facility] TylerPO[facility] [id number] 17:59:00 Test Item Value Reference Range Interpretation Comments POCT PREG (test code = 1605) negative On board controls acceptable with present C Line (test code = 3574) POCT PREG LOT # (test code = 3575) [id number] POCT PREG TEST DATE (test 12/02/2020 code = 3576) Lab Interpretation (test code = Normal 08843-3) [facility]URINALYSIS2020-06-11 17:36:00 Test Item Value Reference Range Interpretation Comments APPEARANCE (test code = Hazy Clear A 2389045353) COLOR (test code = Yellow Yellow 2466364476) PH (test code = 4.8-8.0 4197947645) SP GRAVITY (test code = 1.003-1.030 3873935617) GLU U QUAL (test code = Normal Normal 9848362539) BLOOD (test code = Negative Negative 2933384118) KETONES (test code = Negative Negative 3319671657) PROTEIN (test code = Negative Negative 2887-8) UROBILIN (test code = Normal Normal 4613307081) BILIRUBIN (test code = Negative Negative 4975172836) NITRITE (test code = Negative Negative 5577610508) LEUK ROBERTO (test code = 25/uL Negative A 7072966141) RBC/HPF (test code = See_Comment [Autom ated message] 5245809299) The system Angella Joy generated this result transmitted ref erence range: 0 - 3 HP F. The reference range was not used to int erpret this result as normal/abnormal . WBC/HPF (test code = See_Comment [Autom ated message] 4903263236) The system Angella Joy generated this result transmitted ref erence range: 0 - 5 HP F. The reference range was not used to int erpret this result as normal/abnormal . BACTERIA (test code = Few Negative A 7337822919) MUCOUS (test code = Marked Negative LPF A 9442283912) SQ EPITH (test code = HPF 4296014258) Lab Interpretation (test Abnormal code = 31691-2) [facility] CHEST 1 VW [id number] 16:54:27 1. Minimal congestion in the lungs, nonspecific and likely secondary toviral infection/bronchitis.2. No pneumonia. Disclaimer: Generally, the findings on chest imaging in COVID-19 are notspecific, andoverlap with other infections, including influenza, H1N1,SARS and MERS.According to the Centers for Disease Control (CDC) and the [employer], viral testing remains the only specific method of diagnosiseven if CXR or CT findings are suggestive of COVID-19. PROCEDURE: CHEST XRAY, portable AP erect. CLINICAL INDICATION: sob COMPARISON: None FINDINGS: Lungs: Minimal congestion near the shmuel and in the lower lungs. Pleura: No pleural effusion or pneumothorax is seen. The heart is normalinsize. No acute bony abnormality. [facility], Radiant Results Inft User - 10/14/2019 11:55 [...] Centers for Disease Control (CDC) and the [employer], viral testing remains the only specific method of diagnosiseven if CXR or CT findings are suggestive of COVID-19.[facility] TylerTROPOANKURN [id number] 16:54:00 Test Item Value Reference Range Interpretation Comments TROPONIN I (test <0.012 See_Comment [Automated code = 9729681611) message] The system which generated this result [...] ? Lab Interpretation Normal (test code = 38521-1) [facility] TylerCOVID[facility] (ID NOW RAPID TESTING)2019-10-14 16:51:00 Test Item Value Reference Range Interpretation Comments SARS-CoV-2 Rapid ID NOW Not Detected Not Detected (test code = 40597-3) MARCO (test code = MARCO) ID NOW COVID-19 Assay is an isothermal nucleic acid amplification test intended for the qualitative detection of nucleic acid from SARS-CoV-2 viral RNA in nasopharyngeal (INPATIENT CODER) specimens. It is used under Emergency Use [...] indicated. Lab Interpretation Normal (test code = 50376-1) [facility] TyleraPTT2020-06-11 16:44:00 Test Item Value Reference Range Interpretation Comments APTT Patient (test See_Comment [Automat ed code = 3173-2) message] The system which generated this result transmitted reference range : 23 - 38 Seconds . The reference range was not used to interpr et this result as normal/abnormal . MARCO (test code = MARCO) The [facility] patient population mean normal value for aPTT is 30 seconds. Lab Interpretation Normal (test code = 18457-4) [facility] TylerCOMP. METABOLIC PANEL (18371)2019-10-14 16:43:00 Test Item Value Reference Range Interpretation Comments NA (test code = 137 mmol/L 135-145 9831534073) K (test code = 4.1 mmol/L 3.5-5 6810766148) CL (test code = 107 mmol/L 98-108 6188995628) CO2 TOTAL (test code = 26 mmol/L 23-31 5831020318) AGAP (test code = 2-16 9118771879) BUN (test code = 18 mg/dL 7-23 2992147654) GLUCOSE (test code = 97 mg/dL 70-110 3249563974) CREATININE (test code 0.55 mg/dL 0.5-1.04 = 1675031618) TOTAL BILI (test code 0.3 mg/dL 0.1-1.1 = 2384692756) CALCIUM (test code = 9.0 mg/dL 8.6-10.6 3539906581) T PROTEIN (test code = 7.7 g/dL 6.3-8.2 2730539660) ALBUMIN (test code = 4.1 g/dL 3.5-5 7613538081) ALK PHOS (test code = 89 U/L 34-122 4170381642) ALTv (test code = 14 U/L 5-35 1742-6) AST(SGOT) (test code = 22 U/L 13-40 7593823592) eGFR Calculation mL/min/1.73m2 (Non-) (test code = 3259755599) eGFR Calculation mL/min/1.73m2 () (test code = 5931285354) MARCO (test code = MARCO) Association of [...] or urine or abnormalities in imaging tests). [facility] TylerLIPASE, [id number] 16:43:00 Test Item Value Reference Range Interpretation Comments LIPASE (test code = 9571032405) 48 U/L 0-220 Lab Interpretation (test code = Normal 07514-8) [facility] TylerPROTHROMBIN TIME / [id number] 16:42:00 Test Item Value Reference Range Interpretation [...] tions. Lab Interpretation (test Normal code = 36249-1) [facility] WITH [id number] 16:29:00 Test Item Value Reference Range Interpretation [...] RDW-SD (test code = 49.1 fL 39-49.9 45383-1) RDW-CV (test code = 16.0 % 12-15.5 H 788-0) PLT (test code = See_Comment [Automated 777-3) message] The sy stem which generated this result transmitted reference range : 166 - 358 10*3/ ?L. The reference r rupesh was not used to interpret this result as normal/abnormal . MPV (test code = 10.0 fL 9.5-12.9 53369-2) NRBC/100 WBC (test See_Comment [Automat ed code = 6487242552) message] The system which generated this result transmitted reference range : 0.0 - 10.0 /100 WBCs. The refer ence range was not u sed to interpret th is result as normal/abnormal . NRBC x10^3 (test code <0.01 See_Comment [Auto mated = 4699878837) message] The s ystem which generated this result transmitted reference range : 10*3/?L. The reference range was not used to interpret this result as normal/abnormal . GRAN MAT (NEUT) % 67.4 % (test code = 770-8) IMM GRAN % (test code 0.40 % = 7344001990) LYMPH % (test code = 24.7 % 736-9) MONO % (test code = 4.4 % 5905-5) EOS % (test code = 2.7 % 713-8) BASO % (test code = 0.4 % 706-2) GRAN MAT x10^3(ANC) 6.53 10*3/uL 1.88-7.09 (test code = 3904719053) IMM GRAN x10^3 (test 0.04 10*3/uL 0-0.06 code = 3222242787) LYMPH x10^3 (test code 2.40 10*3/uL 1.32-3.29 = 731-0) MONO x10^3 (test code 0.43 10*3/uL 0.33-0.92 = 742-7) EOS x10^3 (test code = 0.26 10*3/uL 0.03-0.39 711-2) BASO x10^3 (test code 0.04 10*3/uL 0.01-0.07 = 704-7) Lab Interpretation Abnormal (test code = 60751-0) [facility] CHEST PULMONARY [id number] 00:50:34No pulmonary embolus.2. No thoracic aortic aneurysm [...] signed by Naif Cantrell at 05/27/2019 6:50 PMUnB[facility] [id number] 23:38:00 Test Item Value Reference Interpretation Comments Range D-DIMER (test code = See_Comment H [Autom ated 5949435265) message] The system which generated this result [...] diagnosis. Lab Interpretation Abnormal (test code = 38692-3) [facility] TylerTROPONIN [id number] 23:30:00 Test Item Value Reference Range Interpretation Comments TROPONIN I (test <0.012 See_Comment [Automated code = 7047330860) message] The system which generated this result [...] ? Lab Interpretation Normal (test code = 67760-2) [facility] TylerBASIC METABOLIC PANEL (NA, K, CL, CO2, GLUCOSE, BUN, CREATININE, CA)2019-05-27 23:19:00 Test Item Value Reference Range Interpretation Comments NA (test code = 139 mmol/L 135-145 2237306623) K (test code = 3.7 mmol/L 3.5-5 4275516959) CL (test code = 103 mmol/L 98-108 7301502514) CO2 TOTAL (test code = 28 mmol/L 23-31 6974440694) AGAP (test code = 2-16 5403451855) BUN (test code = 12 mg/dL 7-23 0644135011) GLUCOSE (test code = 90 mg/dL 70-110 8075716863) CREATININE (test code 0.60 mg/dL 0.5-1.04 = 1888779274) CALCIUM (test code = 8.8 mg/dL 8.6-10.6 5401578220) eGFR Calculation mL/min/1.73m2 (Non-) (test code = 5665071605) eGFR Calculation mL/min/1.73m2 () (test code = 7399878318) MARCO (test code = MARCO) Association of [...] or urine or abnormalities in imaging tests). [facility] WITH [id number] 23:07:00 Test Item Value Reference Range Interpretation [...] RDW-SD (test code = 49.0 fL 39-49.9 62032-6) RDW-CV (test code = 15.9 % 12-15.5 H 788-0) PLT (test code = See_Comment H [Automated 777-3) message] The sy stem which generated this result transmitted reference range : 166 - 358 10*3/ ?L. The reference r rupesh was not used to interpret this result as normal/abnormal . MPV (test code = 10.2 fL 9.5-12.9 22478-8) NRBC/100 WBC (test See_Comment [Automat ed code = 3570084436) message] The system which generated this result transmitted reference range : 0.0 - 10.0 /100 WBCs. The refer ence range was not u sed to interpret th is result as normal/abnormal . NRBC x10^3 (test code <0.01 See_Comment [Auto mated = 8708666909) message] The s ystem which generated this result transmitted reference range : 10*3/?L. The reference range was not used to interpret this result as normal/abnormal . GRAN MAT (NEUT) % 68.7 % (test code = 770-8) IMM GRAN % (test code 0.50 % = 9876719374) LYMPH % (test code = 24.5 % 736-9) MONO % (test code = 4.1 % 5905-5) EOS % (test code = 1.9 % 713-8) BASO % (test code = 0.3 % 706-2) GRAN MAT x10^3(ANC) 8.30 10*3/uL 1.88-7.09 H (test code = 2352538296) IMM GRAN x10^3 (test 0.06 10*3/uL 0-0.06 code = 6951073104) LYMPH x10^3 (test code 2.97 10*3/uL 1.32-3.29 = 731-0) MONO x10^3 (test code 0.50 10*3/uL 0.33-0.92 = 742-7) EOS x10^3 (test code = 0.23 10*3/uL 0.03-0.39 711-2) BASO x10^3 (test code 0.04 10*3/uL 0.01-0.07 = 704-7) Lab Interpretation Abnormal (test code = 22158-8) [facility] CHEST 1 [id number] 22:58:55HISTORY: SOB. TECHNIQUE: Portable AP erect view of the chest is obtained. Comparison madewith 02/18/2016 study. FINDINGS: No acute pneumonia. No pneumothorax or pleural effusion orpulmonary congestion detected. Cardiac size is within normal limits. [place] of prominent left cervical rib. CONCLUSIONS:No signs of acute cardiopulmonary disease.[facility], Radiant Results Inft User - 05/27/2019 5:00 PM CSTHISTORY: SOB.TECHNIQUE: Portable AP erect view of the chest is obtained. Comparison madewith 02/18/2016study.FINDINGS: No acute pneumonia. No pneumothorax or pleural effusion orpulmonary congestion detected. Cardiac size is within normal limits. [place] of prominent left cervical rib.CONCLUSIONS: No signs of acute cardiopulmonary disease.[id number] 22:43:00 Test Item Value Reference Range Interpretation Comments POCT PREG (test code = 1605) Negative On board controls acceptable with yes C Line (test code = 3574) POCT PREG LOT # (test code = 3575) [id number] POCT PREG TEST DATE (test 12-02-20 code = 3576) Lab Interpretation (test code = Normal 00423-0) [facility]
[2022-09-24] MEDS ORDERED: CODEINE 30MG/APAP 300MG TAB ONE (21:16)
[2022-09-24] MEDS ORDERED: IBUPROFEN 400 MG TAB ONE (21:16)
[2022-09-24] MEDS ORDERED: PROMETHAZINE 25 MG TABLET ONE (21:16)
[2022-09-24] MEDS ORDERED: DIPHENHYDRAMINE 25 MG TAB/CAP ONE (21:16)
[2022-09-24] MEDS ORDERED: ALBUTEROL 2.5 MG/3 ML NEB SOL ONE (21:17)
[2022-09-24] MEDS ORDERED: IPRATROPIUM BROM 0.5MG/2.5ML ONE (21:17)
[2022-09-24 21:42] LABS: SARS-CoV-2 Antigen Rapid Res Negative (Negative)
--- NOTE | 2022-09-24 22:34 | ER ---
Nurse's Notes [facility] Name: Lorelei Bolaños Age: 37 yrs Sex: Female : 1985 Arrival Date: 09/24/2022 Time: 20:05 Bed [id number] Private MD: Diagnosis: Upper respiratory infection, acute systemic viral illness, common cold, body aches Presentation: 09/24 20:39 Chief complaint: Patient states: congestion began this am. RUQ intermittent pain x 1 kl year. Dx with gallstone 1 year ago. Coronavirus screen: Vaccine status: Patient reports being unvaccinated. 20:39 Method Of Arrival: Ambulatory kl 20:39 Acuity: DUTCH 4 kl 22:11 Ebola Screen: Patient negative for fever greater than or equal to 101.5 degrees vc1 Fahrenheit, and additional compatible Ebola Virus Disease symptoms Patient denies exposure to infectious person. Patient denies travel to an Ebola-affected area in the 21 days before illness onset. No symptoms or risks identified at this time. Initial Sepsis Screen: Does the patient meet any 2 criteria? No. Patient's initial sepsis screen is negative. Does the patient have a suspected source of infection? No. Patient's initial sepsis screen is negative. Risk Assessment: Do you want to hurt yourself or someone else? Patient reports no desire to harm self or others. Onset of symptoms was September 24, 2022. Triage Assessment: 22:10 General: Appears in no apparent distress. comfortable, ill, Behavior is calm, vc1 cooperative, agitated. Respiratory: Reports shortness of breath at rest cough that is Onset: The symptoms/episode began/occurred 3 days, the patient has mild shortness of breath. 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 Screenin:09 [facility] ED Fall Risk Assessment (Adult) History of falling in the last 3 months, vc1 including since admission No falls in past 3 months (0 pts) Confusion or Disorientation No (0 pts) Intoxicated or Sedated No (0 pts) Impaired Gait No (0 pts) Mobility Assist Device Used No (0 pt) Altered Elimination No (0 pt) Score/Fall Risk Level 0 - 2 = Low Risk Oriented to surroundings, Maintained a safe environment, Educated pt \T\ family on fall prevention, incl call for assistance when getting out of bed. Abuse screen: Denies threats or abuse. Nutritional screening: No deficits noted. Tuberculosis screening: No symptoms or risk factors identified. Assessment: 22:09 Pain: Complains of pain in chest (with coughing). Neuro: Level of Consciousness is vc1 awake, alert, obeys commands, Oriented to person, place, time, situation, Appropriate for age. Cardiovascular: Rhythm is sinus tachycardia. Respiratory: Airway is patent Respiratory effort is even, unlabored, Breath sounds are clear. GI: No deficits noted. No signs and/or symptoms were reported involving the gastrointestinal system. : No deficits noted. No signs and/or symptoms were reported regarding the genitourinary system. EENT: Nares with drainage noted. Derm: No deficits noted. No signs and/or symptoms reported regarding the dermatologic system. 22:53 Reassessment: Patient and/or family updated on plan of care and expected duration. Pain vc1 level reassessed. Patient is alert, oriented x 3, equal unlabored respirations, skin warm/dry/pink. Patient states feeling better. Patient states symptoms have improved. Vital Signs: 20:39 BP 121 / 61; Pulse 86; Resp 20; Temp 97.9; Pulse Ox 100% ; Weight 163.29 kg; Height 4 kl ft. 11 in. ; Pain 0/10; 22:08 BP 137 / 72; Pulse 100; Resp 18; Pulse Ox 100% ; vc1 20:39 Body Mass Index 72.71 (163.29 kg, 149.86 cm) kl 20:39 Pain Scale: Adult kl ED Course: 20:09 Patient arrived in ED. ag3 20:40 Triage completed. kl 20:54 Theodora Price RN is Primary Nurse. vc1 20:56 Td Davies MD is Attending Physician. sp4 21:21 Influenza Screen (a \T\ B) Sent. vc1 21:21 SARS RAPID Sent. vc1 22:11 No provider procedures requiring assistance completed. Patient did not have IV access vc1 during this emergency room visit. 22:11 Arm band placed on left wrist. vc1 22:12 Patient has correct armband on for positive identification. Bed in low position. Call vc1 light in reach. Client placed on continuous cardiac and pulse oximetry monitoring. NIBP monitoring applied. 22:32 Ayan Sanchez MD is Referral Physician. sp4 Administered Medications: 21:21 Drug: diphenhydrAMINE PO 50 mg Route: PO; vc1 21:21 Drug: Ibuprofen PO 800 mg Route: PO; vc1 21:21 Drug: Acetaminophen-Codeine PO (300 mg-30 mg) 2 tabs Route: PO; vc1 21:21 Drug: DuoNeb Nebulize (3:1) (2.5 mg - 0.5 mg) 3 ml Route: Nebulizer; vc1 21:21 Drug: Promethazine PO 25 mg Route: PO; vc1 Medication: 22:12 VIS not applicable for this client. vc1 Point of Care Testing: Blood Glucose: 22:08 Blood Glucose: 109 mg/dL; vc1 Ranges: Outcome: 22:34 Discharge ordered by . sp4 22:52 Discharged to home ambulatory, with family. vc1 22:52 Condition: good 22:52 Discharge instructions given to patient, Instructed on discharge instructions, follow up and referral plans. medication usage, Demonstrated understanding of instructions, follow-up care, medications, Prescriptions given X 5 22:53 Patient left the ED. vc1 Signatures: Ramona Fleming RN RN kl Gomez, Alice 3 Theodora Price RN RN vc1 Td Davies MD MD sp4
--- NOTE | 2022-09-24 22:35 | EDPHYS ---
Physician Documentation [facility] Name: Lorelei Bolaños Age: 37 yrs Sex: Female : 1985 Arrival Date: 09/24/2022 Time: 20:05 Bed IW10 Private MD: ED Physician Td Davies HPI: 09/24 20:56 This 37 yrs old Female presents to ER via Ambulatory with complaints of sp4 Shortness Of Breath, Cough. 21:03 37-year-old female with history of morbid obesity and prediabetes presents with acute sp4 onset of congestion, sore for out, feeling on a well, sensation of closing airway, body aches, starting this morning. . Patient denies fever or vomiting, denies sick contacts,. 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 ROS: 21:04 Constitutional: Negative for fever, chills, and weight loss, positive for body aches, sp4 feeling unwell, feeling stressed out Eyes: Negative for injury, pain, redness, and discharge, ENT: Negative for injury, positive for sore throat, nasal congestion, nasal drainage, sensation of closing throat Neck: Negative for injury, pain, and swelling, Cardiovascular: Negative for chest pain, palpitations, and edema, Respiratory: Negative for shortness of breath, cough, wheezing, and pleuritic chest pain, Abdomen/GI: Negative for abdominal pain, nausea, vomiting, diarrhea, and constipation, Back: Negative for injury and pain, : Negative for injury, bleeding, discharge, and swelling, MS/Extremity: Negative for injury and deformity, Skin: Negative for injury, rash, and discoloration, Neuro: Negative for headache, weakness, numbness, tingling, and seizure, Psych: Negative for depression, anxiety, Allergy/Immunology: Negative for hives, rash, and allergies Endocrine: Negative for neck swelling, polydipsia, polyuria, polyphagia, and weight changes Hematologic/Lymphatic: Negative for swollen nodes, abnormal bleeding, and unusual bruising Exam: 21:04 Constitutional: This is a well developed, well nourished patient who is awake, alert, sp4 and in no acute distress. Morbidly overweight female Head/Face: Normocephalic, atraumatic. Eyes: Pupils equal round and reactive to light, extra-ocular motions intact. Lids and lashes normal. Conjunctiva and sclera are not injected. Cornea within normal limits. Periorbital areas with no swelling, redness, or edema. ENT: Nares patent. No nasal discharge, no septal abnormalities noted. Tympanic membranes are normal and external auditory canals are clear. Positive for nasal congestion, nasal drainage, bilateral pharyngeal redness without exudates Neck: Trachea midline, no thyromegaly or masses palpated, and no cervical lymphadenopathy. Supple, full range of motion without nuchal rigidity, or vertebral point tenderness. No Meningismus. Chest/axilla: Normal chest wall appearance and motion. Nontender with no deformity. No lesions are appreciated. Cardiovascular: Regular rate and rhythm with a normal S1 and S2. No gallops, murmurs, or rubs. Normal PMI, no JVD. No pulse deficits. Respiratory: Lungs have equal breath sounds bilaterally, clear to auscultation and percussion. No rales, rhonchi or wheezes noted. No increased work of breathing, no retractions or nasal flaring. Abdomen/GI: Soft, non-tender, with normal bowel sounds. No distension or tympany. No guarding or rebound. No evidence of tenderness throughout. Back: No spinal tenderness. No costovertebral tenderness. Skin: Warm, dry with normal turgor. Normal color with no rashes, no lesions, and no evidence of cellulitis. MS/ Extremity: Pulses equal, no cyanosis. Neurovascular intact. Full, normal range of motion. Neuro: Awake and alert, GCS 15, oriented to person, place, time, and situation. Cranial nerves II-XII grossly intact. Motor strength 5/5 in all extremities. Sensory grossly intact. Psych: Awake, alert, with orientation to person, place and time. Behavior, mood, and affect are within normal limits Vital Signs: 20:39 BP 121 / 61; Pulse 86; Resp 20; Temp 97.9; Pulse Ox 100% ; Weight 163.29 kg; Height 4 kl ft. 11 in. ; Pain 0/10; 22:08 BP 137 / 72; Pulse 100; Resp 18; Pulse Ox 100% ; vc1 20:39 Body Mass Index 72.71 (163.29 kg, 149.86 cm) kl 20:39 Pain Scale: Adult kl MDM: 21:24 Patient medically screened. sp4 22:31 Differential diagnosis: Anxiety Reaction asthma, Bronchitis pneumonia, reactive airway sp4 disease. Data reviewed: vital signs, nurses notes, lab test result(s), finger stick glucose, Flu: negative. ED course: Influenza A is negative COVID is negative blood sugar 109 patient feels improved after medications patient is stable for discharge home with as needed medication such as albuterol, nebulized albuterol, Phenergan, Benadryl, ibuprofen and Tylenol. 09/24 21:03 Order name: SARS RAPID; Complete Time: 22:01 sp4 09/24 21:03 Order name: Influenza Screen (a \T\ B); Complete Time: 22:27 sp4 09/24 22:14 Order name: Glucose, Ancillary Testing; Complete Time: 22:27 EDMS 09/24 21:03 Order name: Accucheck; Complete Time: 22:08 sp4 Administered Medications: 21:21 Drug: diphenhydrAMINE PO 50 mg Route: PO; vc1 21:21 Drug: Ibuprofen PO 800 mg Route: PO; vc1 21:21 Drug: Acetaminophen-Codeine PO (300 mg-30 mg) 2 tabs Route: PO; vc1 21:21 Drug: DuoNeb Nebulize (3:1) (2.5 mg - 0.5 mg) 3 ml Route: Nebulizer; vc1 21:21 Drug: Promethazine PO 25 mg Route: PO; vc1 Point of Care Testing: Blood Glucose: 22:08 Blood Glucose: 109 mg/dL; vc1 Ranges: Critical Glucose Levels:Adult <50 mg/dl or >400 mg/dl <40 mg/dl or >180 mg/dl Disposition Summary: 09/24/22 22:34 Discharge Ordered Location: Home sp4 Problem: new sp4 Symptoms: have improved sp4 Condition: Stable sp4 Diagnosis - Upper respiratory infection, acute systemic viral illness, common cold, body aches sp4 Followup: sp4 - With: Ayan Sanchez MD - When: 1 week - Reason: Recheck today's complaints Discharge Instructions: - Discharge Summary Sheet sp4 - Viral Illness, Adult sp4 Prescriptions: - Benadryl 25 mg Oral Capsule - take 1 capsule by ORAL route once daily As needed PRN congestion; 30 tablet; sp4 Refills: 0, Product Selection Permitted - Ibuprofen 800 mg Oral Tablet - take 1 tablet by ORAL route every 8 hours As needed PRN fever or body aches ( sp4 may take with 1000 mg of Tylenol at the same time ); 30 tablet; Refills: 0, Product Selection Permitted - Tessalon Perles 100 mg Oral Capsule - take 1 capsule by ORAL route every 4 hours As needed PRN cough; 40 capsule; sp4 Refills: 0, Product Selection Permitted - Albuterol Sulfate 2.5 mg /3 mL (0.083 %) Inhalation Solution for Nebulization - inhale 1 unit by NEBULIZATION route every 4 hours As needed Dispense 50 sp4 respules or Two boxes, Dispense with Nebulizer and adult mask , Use one respule every 4 hours nebulized PRN dyspnea; 50 unit; Refills: 0, Product Selection Permitted - promethazine 25 mg Oral Tablet - take 1 tablet by ORAL route every 6 hours As needed; 20 tablet; Refills: 0, sp4 Product Selection Permitted Signatures: Dispatcher [employer] Theodora Ojeda RN RN vc1 Td Davies MD MD sp4
[2022-09-24 23:09] VITALS: TEMP 97.9; O2SAT 100
[2022-09-24 23:11] VITALS: BP 137/72
== END 2022-09-24 22:53 | disposition home or self-care (01) ==
LOC: ER 20:05
DX: J06.9 Acute upper respiratory infection, unspecified (principal); J00 Acute nasopharyngitis [common cold]; B34.9 Viral infection, unspecified; R73.03 Prediabetes; E66.01 Morbid (severe) obesity due to excess calories; Z20.822 Contact with and (suspected) exposure to COVID-19
CPT/HCPCS: 36415; 82947; 87804 ×2; 87811; Q0169; J7613; J7644

== ENCOUNTER 2022-12-02 23:12 | Emergency (ER) | payer OTHER ==
--- OUTSIDE RECORDS SUMMARY | 2022-12-02 23:18 | XMS REPORT | Continuity of Care Document ---
:1985 Author Organization [facility] t Address [address] [place] [address] Care Team Providers Name Role Phone PCP, PATIENT DOES NOT HAVE A Primary Care Physician UnavailBHAVIN Soria Attending Clinician Unavailable Bhavin Pichardo MD Attending Clinician JULIO CÉSAR COLEMAN Attending Clinician Unavailable Julio César Pang Attending Clinician ALMITA VARGAS Attending Clinician Unavailable Almita Renteria S Attending Clinician RUBY PERRY Attending Clinician Unavailable Ruby Zambrano Attending Clinician Doctor Unassigned, Marlin Attending Clinician Unavailable JULIO CÉSAR COLEMAN Admitting Clinician Unavailable RUBY PERRY Admitting Clinician Unavailable BHAVIN PICHARDO Admitting Clinician Unavailable Payers Payer Name Policy Type Policy Number Effective Date Expiration Date S charles MEDICAID PENDING PENDING 2021 00:00:00 [facility] [place] [id number] 2021 WOMEN 00:00:00 Problems Condition Condition Condition [...] Date Date Clinician NO KNOWN Drug Active [facility] ALLERGIE Class ity of S [facility] Social History Social Habit Start Date Stop Date Quantity Comments Source History of Cigarette Smoker Universi ty of tobacco use [facility] Exposure to Not sure [place] of SARS-CoV-2 [facility] (event) [place] Alcohol intake 2021-05-09 2021-05-09 0 /d University of 00:00:00 00:00:00 [facility] Tobacco use and 2016-02-18 2016-02-18 Never used Universit y of exposure 00:00:00 00:00:00 [facility] Sex Ass[birth year] At [birth year] Universit y of 00:00:00 00:00:00 [facility] Smoking Status Start Date Stop Date Source Light tobacco smoker 2016-02-18 00:00:00 [facility] ity of [facility] Medications Ordered Filled Start Stop Current Ordering Indication Dosage Frequency Signature Comments Components Source Medication Medication Date Date Medication? Clinician (SIG) Name Name benzonatate Yes [id number] 100mg Take 1 Univers 100 mg 3-09 capsule by ity of capsule 00:00: mouth 3 [place] 00 (three) Medical times [place] daily as needed for Cough. azithromyci Yes [id number] 250mg Take 1 Univers n 3-09 tablet by ity of (ZITHROMAX 00:00: mouth [place] Z-SUSAN) 250 00 daily. Medical mg tablet Take 500 Branch mg day 1, then 250 mg days 2 to 5. montelukast Yes [id number] 10mg Take 1 Univers 10 mg 3-09 tablet by ity of tablet 00:00: mouth [place] 00 every 24 Medical (twenty-fo Branch ur) hours as needed (symptoms) . loratadine- 0 Yes [id number] 1{tbl} Take 1 Univers pseudoephed 3-09 tablet by ity of rine 00:00: mouth (CLARITIN-D 00 daily. Medica l 24 HOUR) Branch 10-240 mg per 24 hr tablet albuterol 0 Yes [id number] 2{puff} Inhale 2 Univers 90 1-05 Puffs ity of mcg/actuati 00:00: every 4 [place] as on inhaler 00 (four) Medical hours as Branch needed for Wheezing or Shortness of Breath. benzonatate Yes [id number] 100mg Take 1 Univers 100 mg 1-05 capsule by ity of capsule 00:00: mouth (three) Medical times Branch daily as needed for Cough. bromphenira 0 Yes [id number] 5mL Take 5 mL Univers mine-pseudo 1-05 by mouth 4 it y of ephedrine-D 00:00: (four[place] (BROMFED 00 times Medical DM) 2-30-10 daily as Bran ch mg/5 mL needed for syrup Cough. albuterol Yes [id number] 2{puff} Inhale 2 Univers 90 1-05 Puffs ity of mcg/actuati 00:00: every 4 [place] as on inhaler 00 (four) Medical hours as Branch needed for Wheezing or Shortness of Breath. benzonatate 0 Yes [id number] 100mg Take 1 Univers 100 mg 1-05 capsule by ity of capsule 00:00: mouth (three) Medical times Branch daily as needed for Cough. bromphenira 0 Yes [id number] 5mL Take 5 mL Univers mine-pseudo 1-05 [...] for Other (muscle spasm). predniSONE 2020-05- No [id number] 40mg Take 2 U nivers 20 mg [...] ity o f (PF)) 21:00: 22:32 [place], [place] injection 00 :00 ONCE, 1 Medical 50 mcg dose, Wed Branch 05/17/20 at 1500, Routine ibuprofen Yes [id number] 600mg Take 1 Univers 600 mg 1-13 100 tablet by ity of tablet 00:00: mouth [place] 00 every 6 Medical (six) Branch hours as needed for Pain (scale 4-6). ibuprofen Yes [id number] 600mg Take 1 Univers 600 mg 1-13 100 tablet by ity of tablet 00:00: mouth [place] 00 every 6 Medical (six) Branch hours as needed for Pain (scale 4-6). ibuprofen Yes [id number] 600mg Take 1 Univers 600 mg 1-13 100 tablet by ity of tablet 00:00: mouth [place] 00 every 6 Medical (six) Branch hours as needed for Pain (scale 4-6). ibuprofen 0 Yes [id number] 600mg Take 1 Univers 600 mg 1-13 100 tablet by ity of tablet 00:00: mouth [place] 00 every 6 Medical (six) Branch hours as needed for Pain (scale 4-6). ibuprofen Yes [id number] 600mg Take 1 Univers 600 mg 1-13 [...] tablet at 0015, CARLINE penicillin 2019-05- No [id number] 500mg Take 1 Univers v potassium 06-24 [...] :00 Infusion, Medical ONCE, 1 Branch dose, [facility] 01/03/20 at 1530, STAT ketorolac 2019- No 30mg 30 mg, Unive rs (TORADOL) 01-02 Slow IV ity of injection 20:30: 19:50 [place], [place] 30 mg 00 :00 ONCE, 1 Medical dose, [facility] 01/03/20 at 1530, CARLINE
Fa culty [...] dose, Lety Medica l mL) 05/27/19 at [place] injection 1845, 120 mL Routine acetaminoph 2015-05 [...] Immunizations Ordered Filled Immunization Date Status Comments [facility] e Immunization Name Name Influenza Virus 2016-02-19 Completed Universit y of Vaccine Quad IM 3+ 00:00:[address] [facility] Influenza Virus 2016-02-19 Completed Universit y of Vaccine Quad IM 3+ 00:00:[address] [facility] Influenza Virus 2016-02-19 Completed Universit y of Vaccine Quad IM 3+ 00:00:[address] [facility] Influenza Virus 2016-02-19 Completed Universit y of Vaccine Quad IM 3+ 00:00:[address] [facility] Influenza Virus 2016-02-19 Completed Universit y of Vaccine Quad IM 3+ 00:00:00 [facility] Branch Influenza Virus 2016-02-19 Completed Universit y of Vaccine Quad IM 3+ 00:00:00 [facility] Branch Influenza Virus 2016-02-19 Completed Universit y of Vaccine Quad IM 3+ 00:00:00 [facility] Branch Influenza Virus 2016-02-19 Completed Universit y of Vaccine Quad IM 3+ 00:00:00 [facility] Branch Influenza Virus 2016-02-19 Completed Universit y of Vaccine Quad IM 3+ 00:00:00 [facility] Branch Influenza Virus 2016-02-19 Completed Universit y of Vaccine Quad IM 3+ 00:00:[address] [facility] Vital Signs Vital Name Observation Time Observation Value Comments Source Systolic blood 2021-07-12 01:00:00 139 mm[Hg] Univer sity of pressure [facility] Diastolic blood 2021-07-12 01:00:00 83 mm[Hg] Unive rsity of pressure [facility] Heart rate 2021-07-12 01:00:00 85 /min [facility] Body temperature 2021-07-12 01:00:00 36.94 Rohini [facility] Respiratory rate 2021-07-12 01:00:00 18 /min [facility] Body height 2021-07-12 01:00:00 149.9 cm [facility] Body weight 2021-07-12 01:00:00 129.729 kg [facility] BMI 2021-07-12 01:00:00 57.76 kg/m2 [facility] Oxygen saturation in 2021-07-12 01:00:00 99 /min [facility] Arterial blood by [facility] Pulse oximetry Branch Systolic blood 2021-05-10 03:19:00 149 mm[Hg] Univer sity of pressure [facility] Diastolic blood 2021-05-10 03:19:00 86 mm[Hg] Unive rsity of pressure [facility] Heart rate 2021-05-10 03:19:00 98 /min Universi ty [facility] Body temperature 2021-05-10 03:19:00 37.22 [facility] Respiratory rate 2021-05-10 03:19:00 18 /min Univ ersity [facility] [place] [facility] Oxygen saturation in 2021-05-10 03:19:00 97 /min University of Arterial blood by [facility] norberto Pulse oximetry Branch Systolic blood 2021-04-04 03:16:24 116 mm[Hg] Univer sity of pressure [place] [facility] Diastolic blood 2021-04-04 03:16:24 64 mm[Hg] Unive rsity of pressure [place] [facility] Heart rate 2021-04-04 03:16:24 77 /min Universi ty of [place] [facility] Respiratory rate 2021-04-04 03:16:24 18 /min Univ ersity of [place] [facility] Oxygen saturation in 2021-04-04 03:16:24 96 /min University of Arterial blood by [facility] Pulse oximetry Branch Body temperature 2021-04-04 01:33:00 36.83 Rohini Univ ersity of [place] [facility] Body height 2021-04-04 01:33:00 149.9 cm Universi ty [facility] [place] [facility] Body weight 2021-04-04 01:33:00 145.151 kg Universi ty [facility] [place] [facility] BMI 2021-04-04 01:33:00 64.63 kg/m2 Universi ty [facility] [place] [facility] Systolic blood 2021-03-08 06:03:00 142 mm[Hg] Univer sity of pressure [place] [facility] Diastolic blood 2021-03-08 06:03:00 80 mm[Hg] Unive rsity of pressure [place] [facility] Heart rate 2021-03-08 06:03:00 66 /min Universi ty of [place] [facility] Respiratory rate 2021-03-08 06:03:00 21 /min Univ ersity of [place] [facility] Oxygen saturation in 2021-03-08 06:03:00 100 /min University of Arterial blood by [facility] Pulse oximetry Branch Body temperature 2021-03-08 04:39:00 37.17 Rohini Univ ersity of [place] [facility] Body height 2021-03-08 04:39:00 149.9 cm Universi ty of [place] [facility] Body weight 2021-03-08 04:39:00 127.007 kg Universi ty of [place] [facility] BMI 2021-03-08 04:39:00 56.55 kg/m2 Universi ty of [place] [facility] Systolic blood 2020-05-17 22:30:00 99 mm[Hg] Univer sity of pressure [place] [facility] Diastolic blood 2020-05-17 22:30:00 54 mm[Hg] Unive rsity of pressure [place] [facility] Heart rate 2020-05-17 22:30:00 76 /min Universi ty of [place] [facility] Respiratory rate 2020-05-17 22:30:00 18 /min Univ ersity of [place] [facility] Oxygen saturation in 2020-05-17 22:30:00 100 /min University of Arterial blood by [facility] norberto Pulse oximetry Branch Body temperature 2020-05-17 19:53:00 36.5 Rohini Univ ersity of [place] [facility] Body weight 2020-05-17 19:53:00 127.007 kg Universi ty of [place] [facility] BMI 2020-05-17 19:53:00 56.55 kg/m2 Universi ty [facility] [place] [facility] Systolic blood 2020-05-17 22:30:00 99 mm[Hg] Univer sity of pressure [place] [facility] Diastolic blood 2020-05-17 22:30:00 54 mm[Hg] Unive rsity of pressure [place] [facility] Heart rate 2020-05-17 22:30:00 76 /min Universi ty of [place] [facility] Respiratory rate 2020-05-17 22:30:00 18 /min Univ ersity of [place] [facility] Oxygen saturation in 2020-05-17 22:30:00 100 /min University of Arterial blood by [facility] norberto Pulse oximetry Branch Body temperature 2020-05-17 19:53:00 36.5 Rohini Univ ersity of [place] [facility] Body weight 2020-05-17 19:53:00 127.007 kg Universi ty of [place] [facility] BMI 2020-05-17 19:53:00 56.55 kg/m2 Universi ty of [place] [facility] Systolic blood 2020-04-24 04:53:00 158 mm[Hg] Univer sity of pressure [place] [facility] Diastolic blood 2020-04-24 04:53:00 69 mm[Hg] Unive rsity of pressure [place] [facility] Heart rate 2020-04-24 04:53:00 61 /min Universi ty of [place] [facility] Body temperature 2020-04-24 04:53:00 37.5 Rohini Univ ersity of [place] [facility] Respiratory rate 2020-04-24 04:53:00 20 /min Univ ersity of [place] [facility] Body weight 2020-04-24 04:53:00 127.007 kg Universi ty [facility] [place] [facility] BMI 2020-04-24 04:53:00 56.55 kg/m2 Universi ty [facility] [place] [facility] Oxygen saturation in 2020-04-24 04:53:00 100 /min University of Arterial blood by [facility] norberto Pulse oximetry Branch Systolic blood 2020-04-24 04:53:00 158 mm[Hg] Univer sity of pressure [place] [facility] Diastolic blood 2020-04-24 04:53:00 69 mm[Hg] Unive rsity of pressure [place] [facility] Heart rate 2020-04-24 04:53:00 61 /min Universi ty of [place] [facility] Body temperature 2020-04-24 04:53:00 37.5 Rohini Univ ersity of [place] [facility] Respiratory rate 2020-04-24 04:53:00 20 /min Univ ersity of [place] [facility] Body weight 2020-04-24 04:53:00 127.007 kg Universi ty [facility] [place] [facility] BMI 2020-04-24 04:53:00 56.55 kg/m2 Universi ty [facility] [place] [facility] Oxygen saturation in 2020-04-24 04:53:00 100 /min University of Arterial blood by [facility] Pulse oximetry Branch Body temperature 2020-01-03 21:00:05 36.44 Rohini Univ ersity of [place] [facility] Systolic blood 2020-01-03 20:20:00 127 mm[Hg] Univer sity of pressure [place] [facility] Diastolic blood 2020-01-03 20:20:00 68 mm[Hg] Unive rsity of pressure [place] [facility] Heart rate 2020-01-03 20:20:00 68 /min Universi ty of [place] [facility] Respiratory rate 2020-01-03 20:20:00 12 /min Univ ersity of [place] [facility] Oxygen saturation in 2020-01-03 20:20:00 99 /min University of Arterial blood by [facility] norberto Pulse oximetry Branch Body height 2020-01-03 17:01:00 149.9 cm Universi ty of [place] [facility] Body weight 2020-01-03 17:01:00 127.007 kg Universi ty [facility] [place] [facility] BMI 2020-01-03 17:01:00 56.55 kg/m2 Universi ty [facility] [place] [facility] Body temperature 2020-01-03 21:00:05 36.44 Rohini Univ ersity [facility] [place] [facility] Systolic blood 2020-01-03 20:20:00 127 mm[Hg] Univer sity of pressure [place] [facility] Diastolic blood 2020-01-03 20:20:00 68 mm[Hg] Unive rsity of pressure [place] [facility] Heart rate 2020-01-03 20:20:00 68 /min Universi ty of [place] [facility] Respiratory rate 2020-01-03 20:20:00 12 /min Univ ersity of [place] [facility] Oxygen saturation in 2020-01-03 20:20:00 99 /min University of Arterial blood by [place] [employer] norberto Pulse oximetry Branch Body height 2020-01-03 17:01:00 149.9 cm Universi ty [facility] [place] [facility] Body weight 2020-01-03 17:01:00 127.007 kg Universi ty [facility] [place] [facility] BMI 2020-01-03 17:01:00 56.55 kg/m2 Universi ty [facility] [place] [facility] Systolic blood 2019-10-14 18:30:00 134 mm[Hg] Univer sity of pressure [place] [facility] Diastolic blood 2019-10-14 18:30:00 72 mm[Hg] Unive rsity of pressure [place] [facility] Heart rate 2019-10-14 18:30:00 73 /min Universi ty of [place] [facility] Respiratory rate 2019-10-14 18:30:00 17 /min Univ ersity of [place] [facility] Oxygen saturation in 2019-10-14 18:30:00 97 /min University of Arterial blood by [facility] norberto Pulse oximetry Branch Body temperature 2019-10-14 15:46:00 36.67 Rohini Univ ersity [facility] [place] [facility] Body height 2019-10-14 15:46:00 152.4 cm Universi ty [facility] [place] [facility] Body weight 2019-10-14 15:46:00 127.007 kg Universi ty [facility] [place] [facility] BMI 2019-10-14 15:46:00 54.68 kg/m2 Universi ty of [place] [facility] Systolic blood 2019-10-14 18:30:00 134 mm[Hg] Univer sity of pressure [place] [facility] Diastolic blood 2019-10-14 18:30:00 72 mm[Hg] Unive rsity of pressure [place] [facility] Heart rate 2019-10-14 18:30:00 73 /min Universi ty of [place] [facility] Respiratory rate 2019-10-14 18:30:00 17 /min Univ ersity of [place] [facility] Oxygen saturation in 2019-10-14 18:30:00 97 /min University of Arterial blood by [facility] Pulse oximetry Branch Body temperature 2019-10-14 15:46:00 36.67 Rohini Univ ersity [facility] [place] [facility] Body height 2019-10-14 15:46:00 152.4 cm Universi ty [facility] [place] [facility] Body weight 2019-10-14 15:46:00 127.007 kg Universi ty [facility] [place] [facility] BMI 2019-10-14 15:46:00 54.68 kg/m2 Universi ty [facility] [place] [facility] Systolic blood 2019-05-28 00:40:30 132 mm[Hg] Univer sity of pressure [place] [facility] Diastolic blood 2019-05-28 00:40:30 80 mm[Hg] Unive rsity of pressure [place] [facility] Heart rate 2019-05-28 00:40:30 83 /min Universi ty of [place] [facility] Respiratory rate 2019-05-28 00:40:30 18 /min Univ ersity [facility] [place] [facility] Oxygen saturation in 2019-05-28 00:40:30 99 /min University of Arterial blood by [facility] Pulse oximetry Branch Body temperature 2019-05-27 22:45:22 36.72 Rohini Univ ers[facility] [place] [facility] Body weight 2019-05-27 21:48:00 127.007 kg Universi ty [facility] [place] [facility] BMI 2019-05-27 21:48:00 54.68 kg/m2 [facility]i ty [facility] [place] [facility] Systolic blood 2019-05-28 00:40:30 132 mm[Hg] Univer sity of pressure [place] [facility] Diastolic blood 2019-05-28 00:40:30 80 mm[Hg] Unive rsity of pressure [place] [facility] Heart rate 2019-05-28 00:40:30 83 /min Universi ty [facility] [place] [facility] Respiratory rate 2019-05-28 00:40:30 18 /min Univ ersity of [place] [facility] Oxygen saturation in 2019-05-28 00:40:30 99 /min University of Arterial blood by [facility] Pulse oximetry Branch Body temperature 2019-05-27 22:45:22 36.72 Rohini Univ ers[facility] [place] [facility] Body weight 2019-05-27 21:48:00 127.007 kg [facility] BMI 2019-05-27 21:48:00 54.68 kg/m2 [facility] Procedures Procedure Date / Time Performing Clinician Source Performed RAPID STREP SCREEN FOR 2021-07-12 01:08:00 [facility] A Medical Branch RAPID INFLUENZA A/B 2021-07-12 01:08:00 Bhavin Pichardo [facility] COVID-19 (ID NOW RAPID 2021-07-12 01:08:00 [facility]in [facility] TESTING) Medical Branch CONSENT/REFUSAL FOR 2021-07-12 00:40:57 Doctor Unassigned, No Un [facility] [place] DIAGNOSIS AND TREATMENT Name Medical Branch XR CHEST 2 VW 2021-05-10 04:05:14 Julio César Coleman [place] [facility] NOTICE OF PRIVACY 2021-05-10 03:11:40 Doctor Unassigned, No [facility] Name Medical Branch CONSENT/REFUSAL FOR 2021-05-10 03:08:35 Doctor Unassigned, No Un [facility] [place] DIAGNOSIS AND TREATMENT Name Medical [place] URINALYSIS 2021-04-04 02:04:00 Almita Vargas [facility] RAPID STREP SCREEN FOR 2021-04-04 02:04:00 Almita Vargas [facility] GROUP A Medical Branch CONSENT/REFUSAL FOR 2021-04-04 01:28:15 Doctor Unassigned, No Un [facility] [place] DIAGNOSIS AND TREATMENT Name Medical Branch XR KNEE 3 VW RIGHT 2021-03-08 05:41:41 Ruby Perry [facility] XR RIBS 3 VW RIGHT 2021-03-08 05:41:41 Ruby Perry [facility] URINALYSIS 2021-03-08 04:56:00 Ruby Perry [facility] POCT TEST 2021-03-08 04:55:00 Ruby Perry [facility] CONSENT/REFUSAL FOR 2021-03-08 04:26:49 Doctor Unassigned, No Un [facility] [place] DIAGNOSIS AND TREATMENT Name Medical Branch CT ABDOMEN PELVIS W 2020-05-17 22:00:14 Julio César Coleman [facility] CONTRAST [facility] Branch URINALYSIS 2020-05-17 20:58:00 Julio César Coleman [facility] POCT TEST 2020-05-17 20:57:00 Julio César Coleman [facility] LIPASE 2020-05-17 20:11:00 Julio César Coleman [facility] TEST, SERUM 2020-05-17 20:11:00 Julio César Coleman [facility] COMP. METABOLIC PANEL 2020-05-17 20:11:00 Julio César Coleman [facility] ([id number]) Medical [place] CBC WITH DIFF 2020-05-17 20:11:00 Julio César Coleman [facility] NOTICE OF PRIVACY 2020-05-17 19:45:39 Doctor Unassigned, No [facility]REFUSAL FOR 2020-05-17 19:45:23 Doctor Unassigned, No Un [facility] [place] DIAGNOSIS AND TREATMENT Name [facility] POCT TEST 2020-04-24 05:17:00 Ruby Perry [facility] NOTICE OF PRIVACY 2020-04-24 04:47:03 Doctor Unassigned, No [facility] CONSENT/REFUSAL FOR 2020-04-24 04:46:22 Doctor Unassigned, No Un [facility] [place] DIAGNOSIS AND TREATMENT Name [facility] XR CHEST 1 VW 2020-01-03 18:47:04 Almita Vargas [facility] CT HEAD WO CONTRAST 2020-01-03 18:19:31 Almita Vargas [facility] BASIC METABOLIC PANEL 2020-01-03 18:05:00 Almita Vargas [facility] (NA, K, CL, CO2, Medical Branch GLUCOSE, BUN, CREATININE, CA) CBC WITH DIFF 2020-01-03 18:05:00 Almita Vargas [facility] URINALYSIS 2020-01-03 18:05:00 Almita Vargas [facility] POCT TEST 2020-01-03 17:59:00 Almita Vargas [facility] EKG-12 LEAD 2020-01-03 17:31:39 Almita Vargas [facility] NOTICE OF PRIVACY 2020-01-03 16:54:57 Doctor Unassigned, No [facility] PRACTICES Name Medical Branch CONSENT/REFUSAL FOR 2020-01-03 16:54:25 Doctor Unassigned, No [facility] DIAGNOSIS AND TREATMENT Name Medical Branch URINALYSIS 2019-10-14 17:14:00 Almita Vargas [facility] XR CHEST 1 VW COVID 2019-10-14 16:52:08 Bhavin Pichardo [facility] LIPASE 2019-10-14 16:17:00 Bhavin Pichardo [facility] TROPONIN I 2019-10-14 16:17:00 Bhavin Pichardo [facility] COMP. METABOLIC PANEL 2019-10-14 16:17:00 Bhavin Pichardo [facility] ([id number]) Medical Branch CBC WITH DIFFERENTIAL 2019-10-14 16:17:00 Bhavin Pichardo [facility] PROTHROMBIN TIME / INR 2019-10-14 16:17:00 Bhavin Pichardo [facility] ACTIVATED PARTIAL 2019-10-14 16:17:00 Bhavin Pichardo [facility] THRMPLAS ELEANOR [facility] COVID-19 (ID NOW RAPID 2019-10-14 16:17:00 Bhavin Pichardo [facility] TESTING) Medical Branch EKG-12 LEAD 2019-10-14 16:13:25 Bhavin Pichardo [facility] CT CHEST PULMONARY 2019-05-28 00:28:48 Almita Vargas [facility] ANGIOGRAM Medical Branch XR CHEST 1 VW 2019-05-27 22:57:06 Almita Vargas [facility] TROPONIN I 2019-05-27 22:56:00 Almita Vargas [facility] BASIC METABOLIC PANEL 2019-05-27 22:56:00 Almita Vargas [facility] (NA, K, CL, CO2, Medical Branch GLUCOSE, BUN, CREATININE, CA) CBC WITH DIFFERENTIAL 2019-05-27 22:56:00 Almita Vargas [facility] D-DIMER 2019-05-27 22:56:00 Almita Vargas [place] [facility] POCT TEST 2019-05-27 22:43:00 [facility] EKG-12 LEAD 2019-05-27 22:28:03 Almita Vargas [place] [facility] CONSENT/REFUSAL FOR 2019-05-27 21:41:13 Doctor Unassigned, No Un [facility] DIAGNOSIS AND TREATMENT Name Medical [place] Encounters Start End Encounter Admission Attending Care Care Encounter Source Date/Time Date/Time Type Type Clinicians Facility Department ID 2021-07-11 2021-07-11 [id number] Univers 19:09:00 20:23:00 BHAVIN [facility] [place] [facility] 2021-07-11 2021-07-11 [facility] [id number] Univers 19:09:00 20:23:00 Bhavin [place] [id number] i ty of [place] [id number] [facility] [id number] [address] 2021-05-09 2021-05-09 Emergency X [facility] ERT [id number] Univers 21:23:00 22:43:00 JULIO CÉSAR [facility] [place] [facility] 2021-05-09 2021-05-09 Emergency [facility] [id number] Univers 21:23:00 22:43:00 Julio César [place] [id number] i ty of [place] [id number] [facility] [id number] [address] 2021-04-03 2021-04-03 Emergency [facility] [id number] Univers 19:35:00 21:18:00 ALMITA [facility] 2021-04-03 2021-04-03 Emergency [facility] [id number] Univers 19:35:00 21:18:00 Almita [place] 350.1.13.10 i ty of [place] 4.2.7.2.686 [facility] [id number] [address] 2021-03-07 2021-03-08 Emergency X PERRY, [facility] ERT [id number] Univers 23:43:00 01:52:00 RUBY ity of [facility] 2021-03-07 2021-03-08 Emergency [place], [facility] 1.2.840.114 [id number] Univers 23:43:00 01:52:00 Ruby [place] 350.1.13.10 i ty of [place] 4.2.7.2.686 [facility] [id number] [address] 2020-05-17 2020-05-17 Emergency [place], [facility] 1.2.094.572 [id number] 191 13:51:00 17:08:00 Julio César R [place] 350.1.13.10 [place] 4.2.7.2.686 [place] [phone] [facility] 2020-05-17 2020-05-17 Emergency [place], [facility] 1.2.833.286 [id number] Univers 13:51:00 17:08:00 Julio César R [place]ountain 350.1.13.10 i ty of [place] 4.2.7.2.686 [facility] [id number] [address] 2020-05-17 2020-05-17 Emergency X [facility] ERT [id number] Univers 13:45:00 13:45:00 ity [facility] 2020-04-23 2020-04-23 Emergency [place], [facility] 1.2.840.114 [id number] 22:55:00 23:39:00 Ruby [place] 350.1.13.10 [place] 4.2.7.2.686 [place] [id number] [facility] 2020-04-23 2020-04-23 Emergency [place], [facility] 1.2.840.114 [id number] Univers 22:55:00 23:39:00 Ruby [place] 350.1.13.10 i ty of [place] 4.2.7.2.686 [facility] [id number] [address] 2020-04-23 2020-04-23 Emergency X PERRY, [facility] ERT [id number] Univers 22:55:00 22:55:00 RUBY weir [facility] 2020-01-03 2020-01-03 [facility] 1.2.841.504 [id number] 12:08:00 16:01:00 Almita S [place] 350.1.13.10 [place] 4.2.7.2.686 [place] [id number] [facility] 2020-01-03 2020-01-03 Emergency [facility] 1.2.421.375 [id number] Univers 12:08:00 16:01:00 Almita S [place] 350.1.13.10 i ty of [place] 4.2.7.2.686 [facility] [id number] [address] 2020-01-03 2020-01-03 Emergency [facility] [id number] Univers 12:08:00 12:08:00 ALMITA weir [facility] 2019-10-14 2019-10-14 [facility] 1.2.070.169 [id number] 10:47:05 13:44:00 Almita S [place] 350.1.13.10 [place] 4.2.7.2.686 [place] [id number] [facility] 2019-10-14 2019-10-14 Emergency [place] [facility] [id number] Univers 10:47:05 13:44:00 ALMITA weir [facility] 2019-10-14 2019-10-14 [facility] 1.2.276.408 [id number] Univers 10:47:05 13:44:00 Almita S [place] 350.1.13.10 i ty of [place] 4.2.7.2.686 [facility] [id number] [address] 2019-05-27 2019-05-[address] [facility] 1.2.864.115 [id number] 2200 15:49:53 19:35:00 Almita S [place]ountain 350.1.13.10 [place] 4.2.7.2.686 [place] [id number] [facility] 2019-05-27 2019-05-27 [facility] 1.2.437.339 [id number] [facility] 15:49:53 19:35:00 Almita [place] 350.1.13.10 i ty of [place] 4.2.7.2.686 [facility] [id number] [facility] [address] 2019-05-27 2019-05-27 Orders Doctor BRANDON 1.2.840.114 [id number] 00:00:00 00:00:00 Only Unassigned, YANETH 350.1.13.10 [place] [facility] 4.2.7.2.686 [id number] 2019-05-27 2019-05-27 Orders Doctor BRANDON 1.2.840.114 [id number] Univers 00:00:00 00:00:00 Only Unassigned, YANETH 350.1.13.10 ity of [facility] 4.2.7.2.686 [facility] [id number] [address] Results Test Description Test Time Test Comments Results Result Comments Source POCT TEST 2021-03-08 04:55:00 Test Item Value Reference Range Interpretation Comme nts POCT PREG (test code = 1605) negative On board controls acceptable with C Line (test code = 3574) present POCT PREG LOT # (test code = 3575) [id number] POCT PREG TEST DATE (test code = 3576) Lab Interpretation (test code = 11795-2) Normal [facility] [id number] 22:05:30CT Abdomen and Pelvis with intravenous contrast. [...] Unremarkable.CONCLUSION: No acute intra-abdominal or pelvic abnormalities detected.[facility]. METABOLIC PANEL ([id number])2020-05-17 21:35:00 Test Item Value Reference Range Interpretation Comments NA (test code = 136 mmol/L 135-145 2693339457) K (test code = 4.5 mmol/L 3.5-5 1298956326) CL (test code = 103 mmol/L 98-108 6297451304) CO2 TOTAL (test code = 27 mmol/L 23-31 5507205564) AGAP (test code = 2-16 5053616520) BUN (test code = 16 mg/dL 7-23 6442778291) GLUCOSE (test code = 95 mg/dL 70-110 4408363660) CREATININE (test code = 0.55 mg/dL 0.5-1.04 1392009166) TOTAL BILI (test code = 0.9 mg/dL 0.1-1.6 0230601446) CALCIUM (test code = 8.3 mg/dL 8.6-10.6 L 5596394799) T PROTEIN (test code = 7.8 g/dL 6.3-8.2 2168659500) ALBUMIN (test code = 4.1 g/dL 3.5-5 5824766703) ALK PHOS (test code = 75 U/L 34-122 3649275946) ALTv (test code = 15 U/L 5-35 1742-6) AST(SGOT) (test code = 32 U/L 13-40 2980014494) eGFR Calculation mL/min/1.73m2 (Non-) (test code = 7249789913) eGFR Calculation mL/min/1.73m2 () (test code = 1751853032) MARCO (test code = MARCO) Association of [...] tests). Lab Interpretation Abnormal (test code = 94074-1) [facility] 21:34:00 Test Item Value Reference Range Interpretation Comments LIPASE (test code = 6280032205) 26 U/L 0-220 Lab Interpretation (test code = Normal 14205-2) [facility]2021-[facility]13 21:29:00 Test Item Value Reference Range Interpretation Comments APPEARANCE (test code = Hazy Clear A 1852436745) COLOR (test code = Yellow Yellow 2505669676) PH (test code = 4.8-8.0 4932633621) SP GRAVITY (test code = 1.003-1.030 3014642094) GLU U QUAL (test code = Normal Normal 7300739480) BLOOD (test code = 3+ Negative A 0965176433) KETONES (test code = Negative Negative 7804256896) PROTEIN (test code = 30 mg/dL Negative A 2887-8) UROBILIN (test code = Normal Normal 4174516045) BILIRUBIN (test code = Negative Negative 5338356923) NITRITE (test code = Negative Negative 4267748213) LEUK ROBERTO (test code = 250/uL Negative A 8487158621) RBC/HPF (test code = See_Comment H [Autom ated message] 7348672173) The system inexio generated this result transmitted ref erence range: 0 - 3 HP F. The reference range was not used to int erpret this result as normal/abnormal . WBC/HPF (test code = See_Comment H [Autom ated message] 9246816779) The system inexio generated this result transmitted ref erence range: 0 - 5 HP F. The reference range was not used to int erpret this result as normal/abnormal . BACTERIA (test code = Negative Negative 5847869396) MUCOUS (test code = Marked Negative LPF A 0294110438) SQ EPITH (test code = HPF 5109381115) Lab Interpretation (test Abnormal code = 45755-8) [facility], [id number] 21:21:00 Test Item Value Reference Range Interpretation Comments PREG SERUM (test code Negative = 0467575217) MARCO (test code = MARCO) Less than 10 IU/L. ?If low titer or ectopic is suspected, resubmit specimen in 48-72 hours. [facility] [id number] 20:57:00 Test Item Value Reference Range Interpretation Comments POCT PREG (test code = 1605) negative On board controls acceptable with present C Line (test code = 3574) POCT PREG LOT # (test code = 3575) [id number] POCT PREG TEST DATE (test 01/02/2022 code = 3576) Lab Interpretation (test code = Normal 24655-3) [facility] WITH [id number] 20:33:00 Test Item Value Reference Range Interpretation Comments WBC (test code = See_Comment [Automated 1090-2) message] The sy stem which generated this [...] RDW-SD (test code = 45.9 fL 39-49.9 84159-3) RDW-CV (test code = 15.3 % 12-15.5 788-0) PLT (test code = See_Comment H [Automated 777-3) message] The sy stem which generated this result transmitted reference range : 166 - 358 10*3/ ?L. The reference r rupesh was not used to interpret this result as normal/abnormal . MPV (test code = 9.9 fL 9.5-12.9 64479-8) NRBC/100 WBC (test See_Comment [Automat ed code = 0528179435) message] The system which generated this result transmitted reference range : 0.0 - 10.0 /100 WBCs. The refer ence range was not u sed to interpret th is result as normal/abnormal . NRBC x10^3 (test code <0.01 See_Comment [Auto mated = 4970172461) message] The s ystem which generated this result transmitted reference range : 10*3/?L. The reference range was not used to interpret this result as normal/abnormal . GRAN MAT (NEUT) % 66.2 % (test code = 770-8) IMM GRAN % (test code 0.30 % = 3639330893) LYMPH % (test code = 26.8 % 736-9) MONO % (test code = 4.6 % 5905-5) EOS % (test code = 1.4 % 713-8) BASO % (test code = 0.7 % 706-2) GRAN MAT x10^3(ANC) 5.88 10*3/uL 1.88-7.09 (test code = 2951352694) IMM GRAN x10^3 (test 0.03 10*3/uL 0-0.06 code = 7161956103) LYMPH x10^3 (test code 2.38 10*3/uL 1.32-3.29 = 731-0) MONO x10^3 (test code 0.41 10*3/uL 0.33-0.92 = 742-7) EOS x10^3 (test code = 0.12 10*3/uL 0.03-0.39 711-2) BASO x10^3 (test code 0.06 10*3/uL 0.01-0.07 = 704-7) Lab Interpretation Abnormal (test code = 66793-3) [facility] [id number] 05:17:00 Test Item Value Reference Range Interpretation Comments POCT PREG (test code = 1605) negative On board controls acceptable with present C Line (test code = 3574) POCT PREG LOT # (test code = 3575) [id number] POCT PREG TEST DATE (test 2021-09-01 code = 3576) Lab Interpretation (test code = Normal 94617-5) [facility] 1 [id number] 18:56:37 No acute cardiopulmonary abnormality. Preliminary Report [...] reviewed this study and agree with the abovereport.[facility] HEAD WO [id number] 18:41:07 No acute intracranial hemorrhage or mass [...] reviewed this study and agree with theabove report.[facility] METABOLIC PANEL (NA, K, CL, CO2, GLUCOSE, BUN, CREATININE, CA)2020-01-03 18:30:00 Test Item Value Reference Range Interpretation Comments NA (test code = 137 mmol/L 135-145 7742377083) K (test code = 4.0 mmol/L 3.5-5 0644376495) CL (test code = 105 mmol/L 98-108 4006871950) CO2 TOTAL (test code = 28 mmol/L 23-31 7831608533) AGAP (test code = 2-16 8864452881) BUN (test code = 15 mg/dL 7-23 1616865584) GLUCOSE (test code = 89 mg/dL 70-110 0806101380) CREATININE (test code 0.52 mg/dL 0.5-1.04 = 8478849040) CALCIUM (test code = 8.6 mg/dL 8.6-10.6 9658275681) eGFR Calculation mL/min/1.73m2 (Non-) (test code = 9572681908) eGFR Calculation mL/min/1.73m2 () (test code = 5791327948) MARCO (test code = MARCO) Association of [...] or urine or abnormalities in imaging tests). [facility] WITH [id number] 18:27:00 Test Item Value Reference Range Interpretation [...] RDW-SD (test code = 49.1 fL 39-49.9 33121-4) RDW-CV (test code = 16.1 % 12-15.5 H 788-0) PLT (test code = See_Comment [Automated 777-3) message] The sy stem which generated this result transmitted reference range : 166 - 358 10*3/ ?L. The reference r rupesh was not used to interpret this result as normal/abnormal . MPV (test code = 10.1 fL 9.5-12.9 34266-4) NRBC/100 WBC (test See_Comment [Automat ed code = 8929747183) message] The system which generated this result transmitted reference range : 0.0 - 10.0 /100 WBCs. The refer ence range was not u sed to interpret th is result as normal/abnormal . NRBC x10^3 (test code <0.01 See_Comment [Auto mated = 6701131758) message] The s ystem which generated this result transmitted reference range : 10*3/?L. The reference range was not used to interpret this result as normal/abnormal . GRAN MAT (NEUT) % 65.7 % (test code = 770-8) IMM GRAN % (test code 0.50 % = 4720679753) LYMPH % (test code = 26.6 % 736-9) MONO % (test code = 4.9 % 5905-5) EOS % (test code = 1.9 % 713-8) BASO % (test code = 0.4 % 706-2) GRAN MAT x10^3(ANC) 6.23 10*3/uL 1.88-7.09 (test code = 8553527343) IMM GRAN x10^3 (test 0.05 10*3/uL 0-0.06 code = 7650034137) LYMPH x10^3 (test code 2.53 10*3/uL 1.32-3.29 = 731-0) MONO x10^3 (test code 0.47 10*3/uL 0.33-0.92 = 742-7) EOS x10^3 (test code = 0.18 10*3/uL 0.03-0.39 711-2) BASO x10^3 (test code 0.04 10*3/uL 0.01-0.07 = 704-7) Lab Interpretation Abnormal (test code = 00293-3) [facility]IS2020-08-31 18:22:00 Test Item Value Reference Range Interpretation Comments APPEARANCE (test code = Clear Clear 6855403295) COLOR (test code = Yellow Yellow 5076435563) PH (test code = 4.8-8.0 2784937598) SP GRAVITY (test code = 1.003-1.030 4363865131) GLU U QUAL (test code = Normal Normal 7365480877) BLOOD (test code = Negative Negative 8987254980) KETONES (test code = Negative Negative 6911583345) PROTEIN (test code = Negative Negative 2887-8) UROBILIN (test code = Normal Normal 7864471284) BILIRUBIN (test code = Negative Negative 0050107722) NITRITE (test code = Negative Negative 0334476209) LEUK ROBERTO (test code = Negative Negative 5718034305) RBC/HPF (test code = See_Comment H [Autom ated message] 1422224460) The system inexio generated this result transmitted ref erence range: 0 - 3 HP F. The reference range was not used to int erpret this result as normal/abnormal . WBC/HPF (test code = See_Comment [Autom ated message] 9192358531) The system inexio generated this result transmitted ref erence range: 0 - 5 HP F. The reference range was not used to int erpret this result as normal/abnormal . BACTERIA (test code = Few Negative A 4579358086) MUCOUS (test code = Slight Negative LPF A 5631119305) SQ EPITH (test code = HPF 7008230571) Lab Interpretation (test Abnormal code = 10559-4) [facility]PO[facility] [id number] 17:59:00 Test Item Value Reference Range Interpretation Comments POCT PREG (test code = 1605) negative On board controls acceptable with present C Line (test code = 3574) POCT PREG LOT # (test code = 3575) [id number] POCT PREG TEST DATE (test 12/02/2020 code = 3576) Lab Interpretation (test code = Normal 55043-6) [facility]IS2020-06-11 17:36:00 Test Item Value Reference Range Interpretation Comments APPEARANCE (test code = Hazy Clear A 8157594255) COLOR (test code = Yellow Yellow 0457565566) PH (test code = 4.8-8.0 8853388561) SP GRAVITY (test code = 1.003-1.030 1322517978) GLU U QUAL (test code = Normal Normal 2170087865) BLOOD (test code = Negative Negative 4792805193) KETONES (test code = Negative Negative 3424751682) PROTEIN (test code = Negative Negative 2887-8) UROBILIN (test code = Normal Normal 2171330047) BILIRUBIN (test code = Negative Negative 7011570852) NITRITE (test code = Negative Negative 6246586355) LEUK ROBERTO (test code = 25/uL Negative A 1589408012) RBC/HPF (test code = See_Comment [Autom ated message] 5722183986) The system inexio generated this result transmitted ref erence range: 0 - 3 HP F. The reference range was not used to int erpret this result as normal/abnormal . WBC/HPF (test code = See_Comment [Autom ated message] 7926869260) The system inexio generated this result transmitted ref erence range: 0 - 5 HP F. The reference range was not used to int erpret this result as normal/abnormal . BACTERIA (test code = Few Negative A 0699736532) MUCOUS (test code = Marked Negative LPF A 9581652148) SQ EPITH (test code = HPF 2942078902) Lab Interpretation (test Abnormal code = 91958-2) [facility] 1 VW [id number] 16:54:27 1. Minimal congestion in the lungs, nonspecific and likely secondary toviral infection/bronchitis.2. No pneumonia. Disclaimer: Generally, the findings on chest imaging in COVID-19 are notspecific, andoverlap with other infections, including influenza, H1N1,SARS and MERS.According to the Centers for Disease Control (CDC) and the [place] [employer], viral testing remains the only specific method of diagnosiseven if CXR or CT findings are suggestive of COVID-19. PROCEDURE: CHEST XRAY, portable AP erect. CLINICAL INDICATION: sob COMPARISON: None FINDINGS: Lungs: Minimal congestion near the shmuel and in the lower lungs. Pleura: No pleural effusion or pneumothorax is seen. The heart is normalinsize. No acute bony abnormality. Msmb, Radiant Results Inft User - 10/14/2019 11:55 [...] Centers for Disease Control (CDC) and the [place] [employer], viral testing remains the only specific method of diagnosiseven if CXR or CT findings are suggestive of COVID-19.[facility] HospitalTROPOANKURN [id number] 16:54:00 Test Item Value Reference Range Interpretation Comments TROPONIN I (test <0.012 See_Comment [Automated code = 9807769423) message] The system which generated this result [...] ? Lab Interpretation Normal (test code = 57711-5) [facility]OVID[facility] (ID NOW RAPID TESTING)2019-10-14 16:51:00 Test Item Value Reference Range Interpretation Comments SARS-CoV-2 Rapid ID NOW Not Detected Not Detected (test code = 24095-4) MARCO (test code = MARCO) ID NOW COVID-19 Assay is an isothermal nucleic acid amplification test intended for the qualitative detection of nucleic acid from SARS-CoV-2 viral RNA in nasopharyngeal (TIE MAKER) specimens. It is used under Emergency Use [...] indicated. Lab Interpretation Normal (test code = 21728-0) [facility] HospitalaPTT2020-06-11 16:44:00 Test Item Value Reference Range Interpretation Comments APTT Patient (test See_Comment [Automat ed code = 3173-2) message] The system which generated this result transmitted reference range : 23 - 38 Seconds . The reference range was not used to interpr et this result as normal/abnormal . MARCO (test code = MARCO) The [facility] patient population mean normal value for aPTT is 30 seconds. Lab Interpretation Normal (test code = 33910-9) [facility]COMP. METABOLIC PANEL (29263)2019-10-14 16:43:00 Test Item Value Reference Range Interpretation Comments NA (test code = 137 mmol/L 135-145 5179019745) K (test code = 4.1 mmol/L 3.5-5 9998472270) CL (test code = 107 mmol/L 98-108 7963889438) CO2 TOTAL (test code = 26 mmol/L 23-31 9063685274) AGAP (test code = 2-16 5868217781) BUN (test code = 18 mg/dL 7-23 9646890793) GLUCOSE (test code = 97 mg/dL 70-110 6247948630) CREATININE (test code 0.55 mg/dL 0.5-1.04 = 9405755400) TOTAL BILI (test code 0.3 mg/dL 0.1-1.1 = 2906119209) CALCIUM (test code = 9.0 mg/dL 8.6-10.6 7827045882) T PROTEIN (test code = 7.7 g/dL 6.3-8.2 0132920804) ALBUMIN (test code = 4.1 g/dL 3.5-5 0827434259) ALK PHOS (test code = 89 U/L 34-122 2347053762) ALTv (test code = 14 U/L 5-35 1742-6) AST(SGOT) (test code = 22 U/L 13-40 9761880901) eGFR Calculation mL/min/1.73m2 (Non-) (test code = 8795046982) eGFR Calculation mL/min/1.73m2 () (test code = 6096426770) MARCO (test code = MARCO) Association of [...] or urine or abnormalities in imaging tests). [facility]LIP[facility], [id number] 16:43:00 Test Item Value Reference Range Interpretation Comments LIPASE (test code = 5567284427) 48 U/L 0-220 Lab Interpretation (test code = Normal 71225-4) [facility] HospitalPROTHROMBIN TIME / [id number] 16:42:00 Test Item Value Reference Range Interpretation [...] tions. Lab Interpretation (test Normal code = 32164-9) [facility] WITH [id number] 16:29:00 Test Item Value Reference Range Interpretation [...] RDW-SD (test code = 49.1 fL 39-49.9 26808-7) RDW-CV (test code = 16.0 % 12-15.5 H 788-0) PLT (test code = See_Comment [Automated 777-3) message] The sy stem which generated this result transmitted reference range : 166 - 358 10*3/ ?L. The reference r rupesh was not used to interpret this result as normal/abnormal . MPV (test code = 10.0 fL 9.5-12.9 16185-5) NRBC/100 WBC (test See_Comment [Automat ed code = 2049267171) message] The system which generated this result transmitted reference range : 0.0 - 10.0 /100 WBCs. The refer ence range was not u sed to interpret th is result as normal/abnormal . NRBC x10^3 (test code <0.01 See_Comment [Auto mated = 2914615654) message] The s ystem which generated this result transmitted reference range : 10*3/?L. The reference range was not used to interpret this result as normal/abnormal . GRAN MAT (NEUT) % 67.4 % (test code = 770-8) IMM GRAN % (test code 0.40 % = 2323852182) LYMPH % (test code = 24.7 % 736-9) MONO % (test code = 4.4 % 5905-5) EOS % (test code = 2.7 % 713-8) BASO % (test code = 0.4 % 706-2) GRAN MAT x10^3(ANC) 6.53 10*3/uL 1.88-7.09 (test code = 4663783547) IMM GRAN x10^3 (test 0.04 10*3/uL 0-0.06 code = 7541093432) LYMPH x10^3 (test code 2.40 10*3/uL 1.32-3.29 = 731-0) MONO x10^3 (test code 0.43 10*3/uL 0.33-0.92 = 742-7) EOS x10^3 (test code = 0.26 10*3/uL 0.03-0.39 711-2) BASO x10^3 (test code 0.04 10*3/uL 0.01-0.07 = 704-7) Lab Interpretation Abnormal (test code = 68480-6) [facility]CT CHEST PULMONARY [id number] 00:50:34No pulmonary embolus.2. No thoracic aortic aneurysm [...] signed by Naif Cantrell at 05/27/2019 6:50 PMUnQuail [facility] HospitalD-[id number] 23:38:00 Test Item Value Reference Interpretation Comments Range D-DIMER (test code = See_Comment H [Autom ated 9851967772) message] The system which generated this result [...] diagnosis. Lab Interpretation Abnormal (test code = 05498-8) [facility] HospitalTROPONIN [id number] 23:30:00 Test Item Value Reference Range Interpretation Comments TROPONIN I (test <0.012 See_Comment [Automated code = 2360945745) message] The system which generated this result [...] ? Lab Interpretation Normal (test code = 76478-2) [facility] HospitalBASIC MET[facility]OLIC PANEL (NA, K, CL, CO2, GLUCOSE, BUN, CREATININE, CA)2019-05-27 23:19:00 Test Item Value Reference Range Interpretation Comments NA (test code = 139 mmol/L 135-145 9205175739) K (test code = 3.7 mmol/L 3.5-5 7872962332) CL (test code = 103 mmol/L 98-108 3743939944) CO2 TOTAL (test code = 28 mmol/L 23-31 5429773773) AGAP (test code = 2-16 6534754854) BUN (test code = 12 mg/dL 7-23 7437342425) GLUCOSE (test code = 90 mg/dL 70-110 0417661424) CREATININE (test code 0.60 mg/dL 0.5-1.04 = 5984249481) CALCIUM (test code = 8.8 mg/dL 8.6-10.6 4696138564) eGFR Calculation mL/min/1.73m2 (Non-) (test code = 8386087913) eGFR Calculation mL/min/1.73m2 () (test code = 2293510627) MARCO (test code = MARCO) Association of [...] or urine or abnormalities in imaging tests). [facility] WITH [id number] 23:07:00 Test Item Value Reference Range Interpretation [...] RDW-SD (test code = 49.0 fL 39-49.9 31551-1) RDW-CV (test code = 15.9 % 12-15.5 H 788-0) PLT (test code = See_Comment H [Automated 777-3) message] The sy stem which generated this result transmitted reference range : 166 - 358 10*3/ ?L. The reference r rupesh was not used to interpret this result as normal/abnormal . MPV (test code = 10.2 fL 9.5-12.9 45131-4) NRBC/100 WBC (test See_Comment [Automat ed code = 7393404399) message] The system which generated this result transmitted reference range : 0.0 - 10.0 /100 WBCs. The refer ence range was not u sed to interpret th is result as normal/abnormal . NRBC x10^3 (test code <0.01 See_Comment [Auto mated = 1119417438) message] The s ystem which generated this result transmitted reference range : 10*3/?L. The reference range was not used to interpret this result as normal/abnormal . GRAN MAT (NEUT) % 68.7 % (test code = 770-8) IMM GRAN % (test code 0.50 % = 8737933630) LYMPH % (test code = 24.5 % 736-9) MONO % (test code = 4.1 % 5905-5) EOS % (test code = 1.9 % 713-8) BASO % (test code = 0.3 % 706-2) GRAN MAT x10^3(ANC) 8.30 10*3/uL 1.88-7.09 H (test code = 6266656415) IMM GRAN x10^3 (test 0.06 10*3/uL 0-0.06 code = 9003889568) LYMPH x10^3 (test code 2.97 10*3/uL 1.32-3.29 = 731-0) MONO x10^3 (test code 0.50 10*3/uL 0.33-0.92 = 742-7) EOS x10^3 (test code = 0.23 10*3/uL 0.03-0.39 711-2) BASO x10^3 (test code 0.04 10*3/uL 0.01-0.07 = 704-7) Lab Interpretation Abnormal (test code = 69032-3) [facility] [id number] 22:58:55HISTORY: SOB. TECHNIQUE: Portable AP erect view of the chest is obtained. Comparison madewith 02/18/2016 study. FINDINGS: No acute pneumonia. No pneumothorax or pleural effusion orpulmonary congestion detected. Cardiac size is within normal limits. [place] of prominent left cervical rib. CONCLUSIONS:No signs of acute cardiopulmonary disease.[facility], Radiant Results Inft User - 05/27/2019 5:00 PM CSTHISTORY: SOB.TECHNIQUE: Portable AP erect view of the chest is obtained. Comparison madewith 02/18/2016study.FINDINGS: No acute pneumonia. No pneumothorax or pleural effusion orpulmonary congestion detected. Cardiac size is within normal limits. [place] of prominent left cervical rib.CONCLUSIONS: No signs of acute cardiopulmonary disease.[facility] [id number] 22:43:00 Test Item Value Reference Range Interpretation Comments POCT PREG (test code = 1605) Negative On board controls acceptable with yes C Line (test code = 3574) POCT PREG LOT # (test code = 3575) [id number] POCT PREG TEST DATE (test 12-02-20 code = 3576) Lab Interpretation (test code = Normal 44860-6) [facility]
[2022-12-03] MEDS ORDERED: IPRATROPIUM BROM 0.5MG/2.5ML ONE (00:50)
[2022-12-03] MEDS ORDERED: ALBUTEROL 2.5 MG/3 ML NEB SOL ONE (00:50)
[2022-12-03] MEDS ORDERED: predniSONE 20 MG TAB ONE (00:50)
[2022-12-03] MEDS ORDERED: GUAIFENESIN/DM 5 ML UCUP ONE (00:53)
[2022-12-03 01:25] LABS: SARS-CoV-2 Antigen Rapid Res Negative (Negative)
--- NOTE | 2022-12-03 03:08 | EDPHYS ---
Physician Documentation [facility] Name: Lorelei Bolaños Age: 37 yrs Sex: Female : 1985 Arrival Date: 12/02/2022 Time: 23:12 Bed DIS3 Private MD: ED Physician Td Davies HPI: 12/02 23:22 This 37 yrs old Female presents to ER via Unassigned with complaints of sp4 Breathing Difficulty. 12/03 03:24 37-year-old female with past medical history of anxiety, asthma, bipolar disorder, sp4 depression, diabetes, [id number], morbid obesity presented with an acute onset of wheezing, feeling unwell overall. Denied fever. Patient reports that she had ran out of her albuterol inhaler at home about 1 week ago. 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 - Social history:: Smoking status: Reported history of juuling and/or vaping. - Family history:: not pertinent. ROS: 03:24 Constitutional: Negative for fever, chills, and weight loss, Eyes: Negative for injury, sp4 pain, redness, and discharge, Respiratory: Positive for for shortness of breath, cough, wheezing, negative for pleuritic chest pain. 03:24 All other systems are negative. Exam: 03:24 Constitutional: This is a well developed, well nourished patient who is awake, alert, sp4 and in no acute distress. Head/Face: Normocephalic, atraumatic. Eyes: Pupils equal round and reactive to light, extra-ocular motions intact. Lids and lashes normal. Conjunctiva and sclera are not injected. Cornea within normal limits. Periorbital areas with no swelling, redness, or edema. ENT: Nares patent. No nasal discharge, no septal abnormalities noted. Tympanic membranes are normal and external auditory canals are clear. Oropharynx with no redness, swelling, or masses, exudates, or evidence of obstruction, uvula midline. Mucous membranes moist. Neck: Trachea midline, no thyromegaly or masses palpated, and no cervical lymphadenopathy. Supple, full range of motion without nuchal rigidity, or vertebral point tenderness. Chest/axilla: Normal chest wall appearance and motion. Nontender with no deformity. No lesions are appreciated. Cardiovascular: Regular rate and rhythm with a normal S1 and S2. No gallops, murmurs, or rubs. Normal PMI, no JVD. No pulse deficits. Respiratory: Lungs have equal breath sounds bilaterally, clear to auscultation and percussion. No rales, rhonchi noted. No increased work of breathing, no retractions or nasal flaring. There is bilateral mild expiratory wheezes with expiratory that are diffuse in all lung miller. Air movement is okay Abdomen/GI: Soft, non-tender, with normal bowel sounds. No distension or tympany. No guarding or rebound. No evidence of tenderness throughout. Obese abdomen Back: No spinal tenderness. No costovertebral tenderness. Skin: Warm, dry with normal turgor. Normal color with no rashes, no lesions, and no evidence of cellulitis. MS/ Extremity: Pulses equal, no cyanosis. Neurovascular intact. Full, normal range of motion. Neuro: Awake and alert, GCS 15, oriented to person, place, time, and situation. Cranial nerves II-XII grossly intact. Motor strength 5/5 in all extremities. Sensory grossly intact. Psych: Awake, alert, with orientation to person, place and time. Behavior, mood, and affect are within normal limits Vital Signs: 00:50 BP 138 / 86; Pulse 82; Resp 18 S; Temp 98.2(O); Pulse Ox 99% on R/A; Weight 127.01 kg as6 (R); Height 4 ft. 11 in. (R); Pain 8/10; 00:50 Body Mass Index 56.55 (127.01 kg, 149.86 cm) as6 00:50 Pain Scale: Adult as6 MDM: 12/02 23:24 Patient medically screened. sp4 12/03 03:04 ED course: EXAM DESCRIPTION: Chest Pa And Lat (2 Views) CLINICAL HISTORY: 37 years sp4 Female CONGESTION COMPARISON: Chest x-ray 10/25/2021 FINDINGS: Lung volumes adequate. Cardiac silhouette is normal in size. No pneumothorax. No large pleural effusion. No focal consolidation. No acute bony finding. IMPRESSION: No acute cardiopulmonary findings. . 03:24 Differential diagnosis: Anxiety Reaction asthma, Bronchitis pneumonia, Psychogenic. sp4 Data reviewed: vital signs, nurses notes, old medical records, lab test result(s), Flu: negative radiologic studies, plain films. Consideration of Admission/Observation Escalation of care including admission/observation considered. ED course: Influenza is negative, and COVID-19 is negative. 12/03 00:01 Order name: SARS RAPID; Complete Time: 03:03 sp4 12/03 00:01 Order name: Influenza Screen (a \T\ B); Complete Time: 03:03 sp4 12/03 00:03 Order name: Chest Pa And Lat (2 Views) XRAY sp4 Administered Medications: 00:55 Drug: predniSONE PO 60 mg Route: PO; as6 03:48 Follow up: Response: No adverse reaction as6 00:55 Drug: Dextromethorphan-Guaifenesin PO Liquid 10 mg-100 mg/5 mL 5 ml Route: PO; as6 03:48 Follow up: Response: No adverse reaction as6 01:04 Drug: DuoNeb Nebulize (3:1) (2.5 mg - 0.5 mg) 3 ml Route: Nebulizer; as6 03:48 Follow up: Response: No adverse reaction as6 Disposition Summary: 12/03/22 03:07 Discharge Ordered Location: Home sp4 Problem: new sp4 Symptoms: have improved sp4 Condition: Stable sp4 Diagnosis - Mild intermittent asthma with (acute) exacerbation sp4 - Cough sp4 - Unspecified chronic bronchitis sp4 Followup: sp4 - With: Private Physician - When: 5 - 6 days - Reason: Recheck today's complaints Discharge Instructions: - Discharge Summary Sheet sp4 - Asthma, Adult sp4 Forms: - Patient Portal Instructions sp4 Prescriptions: - Ventolin HFA 90 mcg/actuation Inhalation HFA Aerosol Inhaler - inhale 2 puff by INHALATION route every 4 hours as needed for shortness of sp4 breath or wheezing; do not exceed 16 puffs per 24 hrs, dispense 1 nebulizer and dispense with spacer.; 1 unit; Refills: 0, Product Selection Permitted - Tessalon Perles 100 mg Oral Capsule - take 1 capsule by ORAL route every 6 hours As needed PRN cough; 30 capsule; sp4 Refills: 0, Product Selection Permitted - Albuterol Sulfate 2.5 mg /3 mL (0.083 %) Inhalation Solution for Nebulization - inhale 1 unit by NEBULIZATION route every 4 hours As needed Spends 50 Respules sp4 or 2 boxes. Dispense with the nebulizer and adult and nebulization set.; 50 unit; Refills: 0, Product Selection Permitted - Prednisone 20 mg Oral Tablet - take 2 tablets by ORAL route once daily for 5 days; 10 tablet; Refills: 0, sp4 Product Selection Permitted Signatures: Dispatcher [employer] Sukumar Tobias RN RN as6 Td Davies MD MD sp4
--- NOTE | 2022-12-03 03:08 | ER ---
Nurse's Notes [facility] Name: Lorelei Bolaños Age: 37 yrs Sex: Female : 1985 Arrival Date: 12/02/2022 Time: 23:12 Bed DIS3 Private MD: Diagnosis: Mild intermittent asthma with (acute) exacerbation;Cough;Unspecified chronic bronchitis Presentation: 12/03 00:53 Chief complaint: Patient states: "I am having wheezing and chest pain". Coronavirus as6 screen: At this time, the client does not indicate any symptoms associated with coronavirus-19. Ebola Screen: No symptoms or risks identified at this time. Initial Sepsis Screen: Does the patient meet any 2 criteria? No. Patient's initial sepsis screen is negative. Does the patient have a suspected source of infection? No. Patient's initial sepsis screen is negative. Risk Assessment: Do you want to hurt yourself or someone else? Patient reports no desire to harm self or others. Onset of symptoms was December 02, 2022. 00:53 Acuity: DUTCH 4 as6 00:53 Method Of Arrival: Ambulatory as6 Triage Assessment: 01:00 General: Appears in no apparent distress. Behavior is calm, cooperative. Pain: as6 Complains of pain in chest. Respiratory: Reports shortness of breath cough that is Respiratory effort is even, unlabored, Respiratory pattern is regular, symmetrical. 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 - Social history:: Smoking status: Reported history of juuling and/or vaping. - Family history:: not pertinent. Screenin:49 [facility] ED Fall Risk Assessment (Adult) Score/Fall Risk Level 0 - 2 = Low Risk. Abuse as6 screen: Denies threats or abuse. Denies injuries from another. Nutritional screening: No deficits noted. Tuberculosis screening: No symptoms or risk factors identified. Vital Signs: 00:50 BP 138 / 86; Pulse 82; Resp 18 S; Temp 98.2(O); Pulse Ox 99% on R/A; Weight 127.01 kg as6 (R); Height 4 ft. 11 in. (R); Pain 8/10; 00:50 Body Mass Index 56.55 (127.01 kg, 149.86 cm) as6 00:50 Pain Scale: Adult as6 ED Course: 12/02 23:14 Patient arrived in ED. ag3 23:22 Td Davies MD is Attending Physician. sp4 12/03 00:25 Chest Pa And Lat (2 Views) XRAY In Process Unspecified. EDMS 00:52 Arm band placed on. as6 00:54 Triage completed. as6 03:49 Bed in low position. Call light in reach. Provided Education on: discharge teaching . as6 03:50 No provider procedures requiring assistance completed. Patient did not have IV access as6 during this emergency room visit. Administered Medications: 00:55 Drug: predniSONE PO 60 mg Route: PO; as6 03:48 Follow up: Response: No adverse reaction as6 00:55 Drug: Dextromethorphan-Guaifenesin PO Liquid 10 mg-100 mg/5 mL 5 ml Route: PO; as6 03:48 Follow up: Response: No adverse reaction as6 01:04 Drug: DuoNeb Nebulize (3:1) (2.5 mg - 0.5 mg) 3 ml Route: Nebulizer; as6 03:48 Follow up: Response: No adverse reaction as6 Medication: 03:49 VIS not applicable for this client. as6 Outcome: 03:07 Discharge ordered by . sp4 03:49 Discharged to home ambulatory. as6 03:49 Condition: stable 03:49 Discharge instructions given to patient, Instructed on discharge instructions, follow up and referral plans. medication usage, Demonstrated understanding of instructions, follow-up care, medications, Prescriptions given X 4. 03:50 Patient left the ED. as6 Signatures: Dispatcher [employer] [facility] Georgette Whipple 3 Sukumar Dubois, RN RN as6 Td Davies MD MD sp4
[2022-12-03 04:10] VITALS: BP 138/86; TEMP 98.2; O2SAT 99
--- NOTE | 2022-12-03 17:48 | RAD REPORT ---
EXAM DESCRIPTION: Chest Pa And Lat (2 Views) CLINICAL HISTORY: 37 years Female CONGESTION COMPARISON: Chest x-ray 10/25/2021 FINDINGS: Lung volumes adequate. Cardiac silhouette is normal in size. No pneumothorax. No large pleural effusion. No focal consolidation. No acute bony finding. IMPRESSION: No acute cardiopulmonary findings. Electronically signed by: Bobby Quintana MD 12/03/2022 12:38 AM CDT Due to temporary technical issues with the PACS/Fluency reporting system, reports are being signed by the in house radiologists without review as a courtesy to insure prompt reporting. The interpreting radiologist is fully responsible for the content of the report.
== END 2022-12-03 03:50 | disposition home or self-care (01) ==
LOC: ER 23:12
DX: J45.21 Mild intermittent asthma with (acute) exacerbation (principal); J42 Unspecified chronic bronchitis; I10 Essential (primary) hypertension; Z20.822 Contact with and (suspected) exposure to COVID-19
CPT/HCPCS: 36415; 87804 ×2; 71046; 94640; 99284; 87811; J7512; J7613; J7644